=== PATIENT | male | born 1960 | race Caucasian/White ===

== ENCOUNTER 2020-01-09 20:27 | Inpatient (IN) ==
[2020-01-09] MEDS ORDERED: SODIUM CHLORIDE 0.9% 500 ML IV ONE (21:35)
[2020-01-09] MEDS ORDERED: ALBUTEROL HFA 8 GM INHALER INH ONE (21:35)
[2020-01-09 22:07] LABS: Hemoglobin 12.8 g/dL (14.0-18.0); Mean Corpuscular Hemoglobin 31.1 pg (25-34); Mean Corpuscular Hgb Conc 34.6 g/dL (32-36); Mean Platelet Volume 8.9 fL (7.4-10.4); Platelet Count 490 K/uL (130-400); RDW Standard Deviation 46.2 fL (36.4-46.3); Red Blood Count 4.11 M/uL (4.7-6.1); White Blood Count 16.58 K/uL (4.8-10.8)
[2020-01-09 22:18] LABS: INR 1.2 (0.9-1.1); Partial Thromboplastin Ratio 1.1; Partial Thromboplastin Time 29.7 Seconds (21.0-31.0); Prothrombin Time 12.6 Seconds (9.0-12.0)
[2020-01-09 22:26] LABS: Alanine Aminotransferase 17 U/L (12-78); Aspartate Aminotransferase 11 U/L (15-37); BUN Creatinine Ratio 21.1 (10-20); Blood Urea Nitrogen 15 mg/dl (7-18); Calcium 9.3 mg/dl (8.5-10.1); Carbon Dioxide 28 mmol/L (21-32); Chloride 95 mmol/L (98-107); Creatinine Clr Calc Pharmacy 119.5 ml/min; Est GFR (African American) 118.9; Est GFR (Non-African American) 102.6; Glucose 109 mg/dl (70-99); Magnesium 2.4 mg/dl (1.8-2.4); Potassium 4.8 mmol/L (3.5-5.1); Sodium 130 mmol/L (136-145)
[2020-01-09 22:31] LABS: Albumin Globulin Ratio 0.4 (0.9-2); Alkaline Phosphatase 119 U/L (45-117); Bilirubin,Total 0.4 mg/dl (0.2-1); Globulin 5.4 gm/dl (2.5-4.0); Total Protein 7.4 gm/dl (6.4-8.2); Troponin I < 0.015 ng/ml (0-0.045)
[2020-01-09 22:32] LABS: Basophils # (auto) 0.04 K/uL (0-0.2); Basophils % (auto) 0.2 %; Eosinophils # (auto) 0.02 K/uL (0-0.5); Eosinophils % (auto) 0.1 %; Immature Granulocytes % (auto) 2.4 %; Lymphocytes # (auto) 1.94 K/uL (1.2-3.4); Lymphocytes % (auto) 11.7 %; Monocytes # (auto) 1.27 K/uL (0.11-0.59); Monocytes % (auto) 7.7 %; Neutrophils # (auto) 12.91 K/uL (1.4-6.5); Neutrophils % (auto) 77.9 %
[2020-01-09 22:43] LABS: Appearance Urine Clear (Clear); Bilirubin Urine Negative (Negative); Blood Urine Negative (Negative); Color Urine Yellow; Glucose Urine UA Negative (Negative); Ketones Urine Negative (Negative); Leukocyte Esterase Urine Negative (Negative); Nitrite Urine Negative (Negative); Protein Urine Negative (Negative); Specific Gravity Urine 1.009 (1.000-1.030); Urobilinogen Urine Negative (Negative)
[2020-01-09] MEDS ORDERED: OPTIRAY 320 125ml IV PRN (23:03)
[2020-01-09] MEDS ORDERED: PIPERACILL/TAZOBAC CONSULT ACTIVE PRN (23:27)
[2020-01-09] MEDS ORDERED: PIPERACILLIN/TAZOBACTAM 4.5 GM/120 ML BAG IV ONE (23:27)
[2020-01-10] MEDS ORDERED: methylPREDNISolone 40 MG in SYRINGE 0 ML IV STA (00:08)
[2020-01-10] MEDS ORDERED: XOPENEX/ATROVENT 1.25mg/0.5MG NEB COMBO NEB STA (00:09)
[2020-01-10] MEDS ORDERED: IPRATROPIUM BROMIDE NEB SOLN 0.02% 2.5 ML VIAL INH STA (00:11)
[2020-01-10] MEDS ORDERED: LEVALBUTEROL 1.25MG/0.5ML NEB INH STA (00:12)
--- NOTE | 2020-01-10 00:15 | Emergency Department Note ---
History of Present Illness General Chief complaint: Chest Pain Stated complaint: CHEST & RIB PAIN History of Present Illness Maximum Pain Intensity: 5 This 59-year-old presents to the ER complaining of cough, congestion, chest pain and dyspnea with feeling sick for the past few days Location: Chest Quality: Hard to breathe Severity: Moderate Duration: Past few days Timing: Started 4 days ago Context: Symptoms got worse and patient came in Modifying factors: better with nothing; worse with activity Patient smokes 2 packs a day. He states he has no active medical problems but does not routinely see a doctor. He moved up here from [place] last year. Patient states he took Tylenol earlier tonight. Patient denies abdominal pain, vomiting, diarrhea, rash. Patient states he feels sick. He denies exposure to the coronavirus. No one in the household is sick. Home Medications Home Medications Medication Instructions Recorded Confirmed Type No Known Home Medications 01/09/20 01/09/20 History Allergies Allergy/AdvReac Type Severity Reaction Status Date / Time phenobarbital Allergy Unknown Verified 01/09/20 23:45 Past Med/Surg History Medical History No acute medical problems Surgical History No pertinent past surgical history Social History Feels Safe at Home: Yes Smoking Status: Current every day smoker Review of Systems A total of 10 systems reviewed and were otherwise negative Physical Exam Vital Signs Vital Signs - 24 hr 01/09/20 20:32 01/09/20 20:34 01/09/20 22:30 Temperature 37.5 C Temperature Source Oral Pulse Rate 120 H 107 H Pulse Rate from SpO2 Sensor 108 H Respiratory Rate 30 H 36 H Blood Pressure 143/81 H 131/81 Blood Pressure Mean 101 92 Blood Pressure Position Sitting Pulse Oximetry 94 87 L 94 Oxygen Delivery Method Nasal Cannula Room Air Oxygen Flow Rate 4 Sepsis Recent Fever Within 48 Hours No Sepsis New/Unexplained Change in Mental Status No Sepsis Action Taken by Nursing No Action Required Oxygen Flow Rate - Titration 4 Pulse Oximetry Post Tiitration 96 01/09/20 22:31 01/09/20 23:08 Temperature Temperature Source Pulse Rate 103 H 116 H Pulse Rate from SpO2 Sensor 104 H 116 H Respiratory Rate 26 H 36 H Blood Pressure 132/87 143/77 H Blood Pressure Mean 96 97 Blood Pressure Position Pulse Oximetry 95 92 Oxygen Delivery Method Oxygen Flow Rate Sepsis Recent Fever Within 48 Hours Sepsis New/Unexplained Change in Mental Status Sepsis Action Taken by Nursing Oxygen Flow Rate - Titration Pulse Oximetry Post Tiitration VITALS: Vitals are noted on the nurse's note and reviewed by myself. Vital signs hypoxic of 85% on room air and patient was placed on nasal cannula. GENERAL: White male working to breathe who appears ill. SKIN: The skin was without rashes, erythema, edema, or bruising. There is no tenting of the skin. Capillary reflex less than 2 seconds. HEAD: Normocephalic atraumatic. EARS: External auditory canals clear, tympanic membranes pearly arnold without erythema or effusion bilaterally. EYES: Pupils equal round and reactive to light and accommodation. Conjunctivae without injection, sclerae without icterus. Extraocular movements intact. NOSE: Patent, turbinates without inflammation or discharge. No sinus tender ness. MOUTH: Mucous membranes mildly dry pharynx without erythema or exudate. Uvula midline. Airway patent. Tongue does not deviate. NECK: Supple without nuchal rigidity. No lymphadenopathy. No thyromegaly. Cervical spine is nontender. No JVD. HEART: Tachycardic rate and rhythm LUNGS: Mild diffuse inspiratory and end expiratory wheezes. No retractions or accessory muscle use. ABDOMEN: Positive bowel sounds x 4. Normal tympanic percussion. Soft, nontender, without masses or organomegaly. Hernandez sign negative. No guarding or rebound tenderness. No CVA tenderness MUSCULOSKELETAL: No muscle atrophy, erythema, or edema noted. NEURO: Patient was alert and oriented to person place and time. Normal sensation to light and sharp touch. No focal neurological deficits. Course Administered Medications Ioversol (Optiray 320 125ml) 125 ml IV ONCE PRN PRN Reason: Interaction Checking Stop: 01/13/20 23:02 Last Admin: 01/09/20 23:04 Dose: 115 ml Documented by: [id number] Discontinued Medications Albuterol (Ventolin Hfa) 2 puffs INH NOW ONE Stop: 01/09/20 21:36 Last Admin: 01/09/20 22:31 Dose: 2 puffs Documented by: [id number] Sodium Chloride (Nss) 500 mls @ 999 mls/hr IV .Q31M ONE Stop: 01/09/20 22:05 Last Infusion: 01/09/20 23:10 Dose: 0 mls/hr Documented by: [id number] Admin: 01/09/20 21:53 Dose: 999 mls/hr Documented by: [id number] Medical Decision Making Medical Records Attestation: I reviewed the patient's medical records. Home Medications Current Medication List: was personally reviewed by me Laboratory Data Attestation: I reviewed the patient's lab results. Result diagrams: 01/09/20 21:54 01/09/20 21:54 Lab Results 01/09/20 01/09/20 01/09/20 Range/Units 21:50 21:54 21:54 WBC 16.58 H (4.8-10.8) K/uL RBC 4.11 L (4.7-6.1) M/uL Hgb 12.8 L (14.0-18.0) g/dL Hct 37.0 L (42-52) % MCV 90.0 (80-100) fL MCH 31.1 (25-34) pg MCHC 34.6 (32-36) g/dL RDW Std Deviation 46.2 (36.4-46.3) fL RDW Coeff of [place] 14.0 (11.5-14.5) % Plt Count 490 H (130-400) K/uL MPV 8.9 (7.4-10.4) fL Immature Gran % (Auto) 2.4 % Neut % (Auto) 77.9 % Lymph % (Auto) 11.7 % [place] % (Auto) 7.7 % Eos % (Auto) 0.1 % Baso % (Auto) 0.2 % Neut # (Auto) 12.91 H (1.4-6.5) K/uL Lymph # (Auto) 1.94 (1.2-3.4) K/uL [place] # (Auto) 1.27 H (0.11-0.59) K/uL Eos # (Auto) 0.02 (0-0.5) K/uL Baso # (Auto) 0.04 (0-0.2) K/uL Immature Gran # (Auto) 0.40 H (0.00-0.02) K/uL PT 12.6 H (9.0-12.0) Seconds INR 1.2 H (0.9-1.1) APTT 29.7 (21.0-31.0) Seconds PTT Ratio 1.1 Sodium (136-145) mmol/L Potassium (3.5-5.1) mmol/L Chloride (98-107) mmol/L Carbon Dioxide (21-32) mmol/L Anion Gap (3-11) BUN (7-18) mg/dl Creatinine (0.6-1.4) mg/dl Est Cr Clr Drug Dosing ml/min Est GFR ( Amer) Est GFR (Non-Af Amer) BUN/Creatinine Ratio (10-20) Glucose (70-99) mg/dl POC Lactic Acid Venkatesh (0.90-1.70) mmol/L Calcium (8.5-10.1) mg/dl Magnesium (1.8-2.4) mg/dl Total Bilirubin (0.2-1) mg/dl AST (15-37) U/L ALT (12-78) U/L Alkaline Phosphatase (45-117) U/L Troponin I (0-0.045) ng/ml Total Protein (6.4-8.2) gm/dl Albumin (3.4-5.0) gm/dl Globulin (2.5-4.0) gm/dl Albumin/Globulin Ratio (0.9-2) Urine Color Urine Appearance (Clear) Urine pH (4.5-7.5) Ur Specific [place] (1.000-1.030) Urine Protein (Negative) Urine Glucose (UA) (Negative) Urine Ketones (Negative) Urine Blood (Negative) Urine Nitrite (Negative) Urine Bilirubin (Negative) Urine Urobilinogen (Negative) Ur Leukocyte Esterase (Negative) COVID-19 PCR NEGATIVE (Negative) 01/09/20 01/09/20 01/09/20 Range/Units 21:54 22:04 22:34 WBC (4.8-10.8) K/uL RBC (4.7-6.1) M/uL Hgb (14.0-18.0) g/dL Hct (42-52) % MCV (80-100) fL MCH (25-34) pg MCHC (32-36) g/dL RDW Std Deviation (36.4-46.3) fL RDW Coeff of [place] (11.5-14.5) % Plt Count (130-400) K/uL MPV (7.4-10.4) fL Immature Gran % (Auto) % Neut % (Auto) % Lymph % (Auto) % [place] % (Auto) % Eos % (Auto) % Baso % (Auto) % Neut # (Auto) (1.4-6.5) K/uL Lymph # (Auto) (1.2-3.4) K/uL [place] # (Auto) (0.11-0.59) K/uL Eos # (Auto) (0-0.5) K/uL Baso # (Auto) (0-0.2) K/uL Immature Gran # (Auto) (0.00-0.02) K/uL PT (9.0-12.0) Seconds INR (0.9-1.1) APTT (21.0-31.0) Seconds PTT Ratio Sodium 130 L (136-145) mmol/L Potassium 4.8 (3.5-5.1) mmol/L Chloride 95 L (98-107) mmol/L Carbon Dioxide 28 (21-32) mmol/L Anion Gap 7.0 (3-11) BUN 15 (7-18) mg/dl Creatinine 0.70 (0.6-1.4) mg/dl Est Cr Clr Drug Dosing 119.5 ml/min Est GFR ( Amer) 118.9 Est GFR (Non-Af Amer) 102.6 BUN/Creatinine Ratio 21.1 H (10-20) Glucose 109 H (70-99) mg/dl POC Lactic Acid Venkatesh 0.95 (0.90-1.70) mmol/L Calcium 9.3 (8.5-10.1) mg/dl Magnesium 2.4 (1.8-2.4) mg/dl Total Bilirubin 0.4 (0.2-1) mg/dl AST 11 L (15-37) U/L ALT 17 (12-78) U/L Alkaline Phosphatase 119 H (45-117) U/L Troponin I < 0.015 (0-0.045) ng/ml Total Protein 7.4 (6.4-8.2) gm/dl Albumin 2.0 L (3.4-5.0) gm/dl Globulin 5.4 H (2.5-4.0) gm/dl Albumin/Globulin Ratio 0.4 L (0.9-2) Urine Color Yellow Urine Appearance Clear (Clear) Urine pH 6.0 (4.5-7.5) Ur Specific [place] 1.009 (1.000-1.030) Urine Protein Negative (Negative) Urine Glucose (UA) Negative (Negative) Urine Ketones Negative (Negative) Urine Blood Negative (Negative) Urine Nitrite Negative (Negative) Urine Bilirubin Negative (Negative) Urine Urobilinogen Negative (Negative) Ur Leukocyte Esterase Negative (Negative) COVID-19 PCR (Negative) Imaging Data Attestation: I personally reviewed and interpreted this imaging study as follows: Blood Pressure Blood Pressure Findings: Elevated blood pressure Blood Pressure Disposition: Referred to patients primary care provider [facility] Narrative Prior records/ancillary studies reviewed. Triage Nursing notes reviewed. The patient's history was concerning for respiratory difficulties. Differential diagnosis: Etiologies such as infections, reactive airway disease, pneumonia, pneumothorax, COPD, CHF, cardiac ischemia, pulmonary embolism, musculoskeletal, gastrointestinal, as well as others were entertained. Physical examination: As above. ER treatment provided: An order was placed for continuous cardiac monitoring. The monitor shows a rate of 60-1 30 with a normal sinus rhythm. IV fluids, albuterol, Zosyn On reassessment the patient felt better. Diagnostic interpretation by me: The electrocardiogram was ordered for chest pain EKG: Poor baseline, normal sinus, normal intervals, no acute ST-T changes, rate of 117. Impression sinus tachycardia interpreted by myself I think arrhythmia is unlikely. EKG shows normal sinus rhythm with no interval abnormalities such as QT prolongation or WPW. There are no findings to suggest Brugada syndrome. Cardiac monitoring in the emergency department reveals no tachycardic or bradycardic dysrhythmia. Hypertrophic cardiomyopathy was considered but there are no clear historical elements pointing toward this. EKG is not suggestive. The QRS voltage is not extremely large and there are no suggestive Q waves. The labs revealed leukocytosis, negative lactic acid, negative COVID test Blood cultures pending Imaging studies: Chest x-ray concerning for left-sided pleural effusion and possible pneumonia per my interpretation. CTA CHEST: No pulmonary embolism or acute aortic syndrome. Large loculated pleural effusion at the left lung base with mild pleural thickening suggestive of empyema. Moderate emphysema. Groundglass opacities within the left upper and lower lobes with septal thickening. Infection/Covid could have this appearance. Near complete collapse of the left lower lobe secondary to the large effusion. Radiologist: Ramez Sahu MD Consultation: A consultation was placed with Dr. Andrew hospitalist. The case was discussed and diagnostics were reviewed. The patient was evaluated in the ER for further treatment. This appears to be consistent with sepsis with pneumonia with large pleural effusion concerning for empyema. Patient started on IV antibiotics. Blood cultures are pending. Negative COVID. Negative lactic acid. Patient was p laced on oxygen and O2 came up. He is agreeable treatment plan of admission. Medicine was consulted. By the evaluation outlined above emergent etiologies such as CHF, cardiac ischemia, pulmonary embolism, reactive airway disease, pneumothorax, musculoskeletal, as well as others were deemed relatively unlikely. The pt informed about the findings as listed above. All questions were answered and pleased with the treatment. The chart was completed utilizing [employer] Speech voice recognition software. Grammatical errors, random word insertions, pronoun errors, and incomplete sentences are an occassional consequence of this system due to software limitations, ambient noise, and hardware issues. Any formal questions or concerns about the content, text, or information contained within the body of this dictation should be directly addressed to the physician assistant attorney general for clarification. Impression & Plan Sepsis, Pneumonia Discharge Plan Visit Data Chief Complaint: Chest Pain Stated Complaint: CHEST & RIB PAIN ED Provider: Kayy Dukes ED Midlevel Provider: Nany Kolb Discharge Problem: Sepsis, Pneumonia Patient Disposition: Admitted As Inpatient Condition: Fair Forms Stand Alone Forms: Tapingo Prescriptions Prescriptions: No Action No Known Home Medications RF: 0 Referrals Referrals: PCP,NO [Primary Care Provider] -
[2020-01-10 00:49] LABS: Thyroid Stimulating Hormone 0.665 uIu/ml (0.300-4.500)
[2020-01-10] MEDS ORDERED: NICOTINE 21 MG/24 HR TDSY TD STA (01:13)
[2020-01-10] MEDS ORDERED: PANTOprazole 80 MG in DEXTROSE 5% 100 ML IV ONE (01:43)
[2020-01-10] MEDS ORDERED: PANTOPRAZOLE BOLUS/DRIP 1 EA IV STA (01:43)
--- NOTE | 2020-01-10 01:44 | History & Physical Report ---
Date of Service January 10, 2020 Assessment & Plan (1) Acute hypoxemic respiratory failure: Secondary to COPD exacerbation secondary to complicated pneumonia Severe sepsis secondary to above U GIB, possible NSAID gastritis Anemia secondary to above ? Acute on chronic Situational hypertension Currently not on maintenance meds Possible alcohol withdrawal ongoing tobacco abuse Medical telemetry Supplemental O2 Baseline ABG Steroids, nebs RTC for symptom exacerbation Cultures, Zosyn Pulmonary consult RE complicated pneumonia IV PPI for UGI B Anemia work-up, trend H&H, transfuse PRBC if hemoglobin less than 7 and or for symptomatic anemia Patient counseled about NSAID intake and potential to GI bleed. Monitor BP, clonidine as needed for elevated BP DT precautions DVT prophylaxis. SCDs RE GI bleed Full code Total critical time was 45 minutes. Text document was generated using [employer] voice recognition software. It may contain grammatical or spelling errors. Kindly contact undersigned for clarification of any documentation item in question. History of Present Illness Tonsillectomy, circumcision Chief Complaint: Left-sided chest pain, shortness of breath Primary Care Provider: [place], [place], [place] History obtained from patient and records. Medical history significant for COPD, hypertension (currently not on meds), daily alcohol intake, ongoing tobacco abuse. Patient is a resident of [facility] who has been in [place] residing with his parents since last year to attend to some family concerns. About 4 days ago, a branch hit patient's left chest/flank while he was cutting bushes at his parents' home. Achy pleuritic pain with worsening junky cough and shortness of breath symptoms. No aspiration as per patient. No known sick contacts/COVID-19 exposure. No fever, no chills. Intake of at least 5 tablets of OTC NSAID daily since injury. Stools noted to be dark along with achy abdominal pain. No emesis. EMS called for worsening symptoms last night. Patient noted to be hypoxemic, O2 sats 80s. Patient brought to the ER. Given IV Zosyn for sepsis. 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 Allergies Allergy/AdvReac Type Severity Reaction Status Date / Time phenobarbital Allergy Unknown Verified 01/09/20 23:45 Home Medications Home Medications Medication Instructions Recorded Confirmed Type No Known Home Medications 01/09/20 01/09/20 History Past Med/Surg History Medical History No acute medical problems Surgical History No pertinent past surgical history Social History Preferred Language: Frisian Communication Ability: Effective Project Program Manager Required: No Beliefs That Will Affect Care: None Current Living Situation: Alone Other Information That Helps Us Care for You: No Feels Safe at Home: Yes Safety Concerns: Feels Safe At This Time Smoking Status: Current every day smoker Tobacco Type: cigarettes ; Cigarettes Per Day: 1-2 PPD ; Hx Alcohol Use: Yes Alcohol type: beer Hx Substance Use: Yes substance use type: marijuana Last Used Substance: Unknown Last Used Substance Other:: years ago Review of Systems Review of Systems: As per HPI, all 10 systems reviewed, all other ROS negative Physical Exam Physical Exam: GENERAL: uncomfortable, minimal respiratory distress SKIN: Pallor color, warm HEENT: Pale palpebral conjunctivae, no ptosis, dry buccal mucosa, nasal cannula in place NECK : Supple, no tenderness CHEST : Decreased breath sounds, diffuse expiratory wheezes , no tenderness HEART : Tachycardic, no obvious murmurs ABDOMEN: Some distention, nontender RECTAL : Intact sphincter, fleshy anal skin tag, dark stool (FOBT positive ) EXTREMITIES : No LE swelling/tenderness, no other conspicuous deformities noted NEUROLOGIC : Coherent, no facial asymmetry, no other gross focality Results & Data Results & Data ([facility]) Vital Signs (Past 12 Hours) Vital Signs Temp Pulse Pulse Resp BP BP Pulse Ox 01/10/20 01:00 102 H 24 132/83 92 01/10/20 00:26 71 22 86 L 01/09/20 23:08 116 H 36 H 143/77 H 92 01/09/20 22:31 103 H 26 H 132/87 95 01/09/20 22:30 107 H 36 H 131/81 94 01/09/20 20:34 87 L 01/09/20 20:32 37.5 C 120 H 30 H 143/81 H 94 Laboratory Results Laboratory Results WBC 16.58 K/uL (4.8-10.8) H 01/09/20 21:54 RBC 4.11 M/uL (4.7-6.1) L 01/09/20 21:54 Hgb 12.8 g/dL (14.0-18.0) L 01/09/20 21:54 Hct 37.0 % (42-52) L 01/09/20 21:54 MCV 90.0 fL (80-100) 01/09/20 21:54 MCH 31.1 pg (25-34) 01/09/20 21:54 MCHC 34.6 g/dL (32-36) 01/09/20 21:54 RDW Std Deviation 46.2 fL (36.4-46.3) 01/09/20 21:54 RDW Coeff of [place] 14.0 % (11.5-14.5) 01/09/20 21:54 Plt Count 490 K/uL (130-400) H 01/09/20 21:54 MPV 8.9 fL (7.4-10.4) 01/09/20 21:54 Immature Gran % (Auto) 2.4 % 01/09/20 21:54 Neut % (Auto) 77.9 % 01/09/20 21:54 Lymph % (Auto) 11.7 % 01/09/20 21:54 [place] % (Auto) 7.7 % 01/09/20 21:54 Eos % (Auto) 0.1 % 01/09/20 21:54 Baso % (Auto) 0.2 % 01/09/20 21:54 Neut # (Auto) 12.91 K/uL (1.4-6.5) H 01/09/20 21:54 Lymph # (Auto) 1.94 K/uL (1.2-3.4) 01/09/20 21:54 [place] # (Auto) 1.27 K/uL (0.11-0.59) H 01/09/20 21:54 Eos # (Auto) 0.02 K/uL (0-0.5) 01/09/20 21:54 Baso # (Auto) 0.04 K/uL (0-0.2) 01/09/20 21:54 Immature Gran # (Auto) 0.40 K/uL (0.00-0.02) H 01/09/20 21:54 PT 12.6 Seconds (9.0-12.0) H 01/09/20 21:54 INR 1.2 (0.9-1.1) H 01/09/20 21:54 APTT 29.7 Seconds (21.0-31.0) 01/09/20 21:54 PTT Ratio 1.1 01/09/20 21:54 Sodium 130 mmol/L (136-145) L 01/09/20 21:54 Potassium 4.8 mmol/L (3.5-5.1) 01/09/20 21:54 Chloride 95 mmol/L (98-107) L 01/09/20 21:54 Carbon Dioxide 28 mmol/L (21-32) 01/09/20 21:54 Anion Gap 7.0 (3-11) 01/09/20 21:54 BUN 15 mg/dl (7-18) 01/09/20 21:54 Creatinine 0.70 mg/dl (0.6-1.4) 01/09/20 21:54 Est Cr Clr Drug Dosing 119.5 ml/min 01/09/20 21:54 Est GFR ( Amer) 118.9 01/09/20 21:54 Est GFR (Non-Af Amer) 102.6 01/09/20 21:54 BUN/Creatinine Ratio 21.1 (10-20) H 01/09/20 21:54 Glucose 109 mg/dl (70-99) H 01/09/20 21:54 Osmolality 277 mOsm/kg (280-300) L 01/09/20 21:50 POC Lactic Acid Venkatesh 0.95 mmol/L (0.90-1.70) 01/09/20 22:04 Lactate 1.1 mmol/L (0.4-2.0) 01/10/20 00:25 Calcium 9.3 mg/dl (8.5-10.1) 01/09/20 21:54 Magnesium 2.4 mg/dl (1.8-2.4) 01/09/20 21:54 Total Bilirubin 0.4 mg/dl (0.2-1) 01/09/20 21:54 AST 11 U/L (15-37) L 01/09/20 21:54 ALT 17 U/L (12-78) 01/09/20 21:54 Alkaline Phosphatase 119 U/L (45-117) H 01/09/20 21:54 Troponin I < 0.015 ng/ml (0-0.045) 01/09/20 21:54 Total Protein 7.4 gm/dl (6.4-8.2) 01/09/20 21:54 Albumin 2.0 gm/dl (3.4-5.0) L 01/09/20 21:54 Globulin 5.4 gm/dl (2.5-4.0) H 01/09/20 21:54 Albumin/Globulin Ratio 0.4 (0.9-2) L 01/09/20 21:54 TSH 0.665 uIu/ml (0.300-4.500) 01/09/20 21:54 Urine Color Yellow 01/09/20 22:34 Urine Appearance Clear (Clear) 01/09/20 22:34 Urine pH 6.0 (4.5-7.5) 01/09/20 22:34 Ur Specific [place] 1.009 (1.000-1.030) 01/09/20 22:34 Urine Protein Negative (Negative) 01/09/20 22:34 Urine Glucose (UA) Negative (Negative) 01/09/20 22:34 Urine Ketones Negative (Negative) 01/09/20 22:34 Urine Blood Negative (Negative) 01/09/20 22:34 Urine Nitrite Negative (Negative) 01/09/20 22:34 Urine Bilirubin Negative (Negative) 01/09/20 22:34 Urine Urobilinogen Negative (Negative) 01/09/20 22:34 Ur Leukocyte Esterase Negative (Negative) 01/09/20 22:34 COVID-19 PCR NEGATIVE (Negative) 01/09/20 21:[address] chest initial read: No pleural embolism or acute aortic syndrome. Large loculated pleural effusion at the left lung base with mild pleural thickening suggestive of empyema. Moderate emphysema. Groundglass opacities within the left upper and lower lobes and septal thickening. Infection/COVID-19 could have this appearance. Near complete collapse of left lower lobe secondary to large effusion. CT abdomen pelvis initial read: Colonic diverticulosis without diverticulitis. Normal appendix. Prior pancreatitis. Left adrenal adenoma. Large empyema left lung base. EKG as per my interpretation : Rate 115, sinus tachycardia, normal axis, no ischemia
[2020-01-10] MEDS ORDERED: THIAMINE HCL 100 MG in SYRINGE 9 ML IV STA (01:46)
[2020-01-10] MEDS: PANTOprazole 40 MG in DEXTROSE 5% 100 ML IV SCH ×2 (02:19→07:26)
[2020-01-10] MEDS ORDERED: cloNIDine HCL 0.1 MG TAB PO STA (02:22)
[2020-01-10 02:25] LABS: Hematocrit (blood only) 34.3 % (42-52); Hemoglobin 11.9 g/dL (14.0-18.0); Mean Corpuscular Hemoglobin 31.5 pg (25-34); Mean Corpuscular Hgb Conc 34.7 g/dL (32-36); Mean Corpuscular Volume 90.7 fL (80-100); Mean Platelet Volume 8.8 fL (7.4-10.4); Platelet Count 433 K/uL (130-400); RDW Coefficient of Variation 14.1 % (11.5-14.5); RDW Standard Deviation 46.5 fL (36.4-46.3); Red Blood Count 3.78 M/uL (4.7-6.1); Reticulocyte % 1.2 % (0.5-2.0); Reticulocytes # 0.05 10^6/uL (0.02-0.10); White Blood Count 16.13 K/uL (4.8-10.8)
[2020-01-10 02:26] LABS: Base Excess VBG 3.9 mEq/L; HCO3 VBG 31 mmol/L; Oxygen Saturation VBG < 60.0 %; PCO2 VBG 58 mmHg (38-50); PO2 VBG 21 mmHg; pH VBG 7.35 (7.36-7.41)
[2020-01-10 02:43] LABS: BUN Creatinine Ratio 22.9 (10-20); Creatinine Clr Calc Pharmacy 117.8 ml/min; Est GFR (African American) 118.2; Potassium 5.2 mmol/L (3.5-5.1)
[2020-01-10 02:46] LABS: Basophils # (auto) 0.02 K/uL (0-0.2); Basophils % (auto) 0.1 %; Dohle Bodies 1+; Eosinophils # (auto) 0.04 K/uL (0-0.5); Eosinophils % (auto) 0.2 %; Immature Granulocytes # (auto) 0.29 K/uL (0.00-0.02); Immature Granulocytes % (auto) 1.8 %; Lymphocytes # (auto) 2.22 K/uL (1.2-3.4); Lymphocytes % (auto) 13.8 %; Monocytes # (auto) 1.52 K/uL (0.11-0.59); Monocytes % (auto) 9.4 %; Neutrophils # (auto) 12.04 K/uL (1.4-6.5); Neutrophils % (auto) 74.7 %; Toxic Granulation 2+
[2020-01-10 02:48] LABS: Ferritin 454.2 ng/ml (8-388)
[2020-01-10 03:32] LABS: Folate (Folic Acid) 8.96 ng/ml (>5.38)
[2020-01-10] MEDS ORDERED: DEXTROSE 50% 50 ML SYRINGE IV ONE (03:32)
[2020-01-10] MEDS ORDERED: INSULIN HUMAN REGULAR PER UNIT 10 UNITS in SYRINGE 9.9 ML IV STA (03:32)
[2020-01-10] MEDS ORDERED: LORazepam 2 MG/4 ML VIAL IV PRN (04:18)
[2020-01-10] MEDS ORDERED: LORazepam 3 MG/6 ML VIAL IV PRN (04:18)
[2020-01-10] MEDS ORDERED: ATIVAN IV ALCOHOL WITHDRAWL IV PRN (04:18)
[2020-01-10] MEDS ORDERED: LORazepam 1 MG/2 ML VIAL IV PRN (04:18)
[2020-01-10] MEDS ORDERED: ACETAMINOPHEN 325 MG TAB PO PRN (04:18)
[2020-01-10] MEDS ORDERED: GABAPENTIN 600 MG TAB PO SCH (04:18)
[2020-01-10] MEDS: SODIUM CHLORIDE 0.9% 1000ML 1,000 ML IV SCH ×2 (04:18→20:40)
[2020-01-10] MEDS ORDERED: PROMETHAZINE HCL 12.5 MG in SODIUM CHLORIDE 0.9% 50 ML IV PRN (04:18)
[2020-01-10] MEDS ORDERED: GABAPENTIN 1200MG ALCOHOL WITHDRAWAL LOAD PO STA (04:18)
[2020-01-10] MEDS: PIPERACILLIN/TAZOBACTAM 3.375 GM in DEXTROSE 5% 100 ML IV SCH ×3 (05:13→22:13)
--- NOTE | 2020-01-10 06:41 | XRay Report ---
XR ribs LT min 3V w CXR1V CLINICAL HISTORY: Pain s/p Trauma, C04 trauma. Pain. COMPARISON STUDY: No previous studies for comparison. FINDINGS: Fracture posterior aspect left sixth rib. No additional rib fractures. Left basilar consolidation and/or atelectasis. IMPRESSION: 1. Fracture posterior left sixth rib. 2. Left basilar atelectasis and/or consolidation. 3. No evidence for pneumothorax. ACT 112: Negative or not required by law. The above report was generated using voice recognition software. It may contain grammatical, syntax or spelling errors. Electronically signed by: Roland Steele M.D. 01/10/2020 6:40 AM
[2020-01-10] MEDS ORDERED: XOPENEX/ATROVENT 1.25mg/0.5MG NEB COMBO NEB SCH (07:00)
[2020-01-10] MEDS: IPRATROPIUM BROMIDE NEB SOLN 0.02% 2.5 ML VIAL INH SCH ×3 (07:14→19:41)
[2020-01-10] MEDS: LEVALBUTEROL 1.25MG/0.5ML NEB INH SCH ×3 (07:14→19:41)
--- NOTE | 2020-01-10 07:16 | CT Scan Report ---
CT angio chest PE protocol CT DOSE: 580.00 mGycm HISTORY: Chest pain. Dyspnea. PE TECHNIQUE: Multiaxial CT images of the chest were performed following the intravenous administration of contrast to evaluate the pulmonary arteries. Maximal intensity projection images were also obtaine d. A dose lowering technique was utilized adhering to the principles of ALARA. COMPARISON STUDY: None. FINDINGS: Large left pleural effusion. There is a loculated. Compressive atelectasis of the left lowe r lobe. Interstitial infiltrative changes throughout the left mid to lower lung. Right lung shows minimal int erstitial change. Baseline underlying emphysematous change is present. Pulmonary vasculature enhances appropriately. No significant filling defects. Mild atherosclerotic ch anges thoracic aorta with no evidence for aneurysm or dissection. IMPRESSION: 1. No evidence for pulmonary embolus. 2. Large loculated left pleural effusion with additional small loculated components in the left peric ardial lingular position. 3. Diffuse interstitial infiltrative change of the left mid to lower lung. 4. Underlying baseline emphysematous change. ACT 112: Negative or not required by law. The above report was generated using voice recognition software. It may contain grammatical, syntax or spelling errors. Electronically signed by: Roland Steele M.D. 01/10/2020 7:14 AM
--- NOTE | 2020-01-10 08:29 | CT Scan Report ---
CT SCAN OF THE ABDOMEN AND PELVIS WITHOUT CONTRAST CLINICAL HISTORY: Generalized abdominal pain COMPARISON STUDY: No previous studies for comparison. TECHNIQUE: CT scan of the abdomen and pelvis was performed from the lung bases to the proximal femurs . Images are reviewed in the axial, sagittal, and coronal planes. IV contrast was not administered fo r this examination. A dose lowering technique was utilized adhering to the principles of ALARA. CT DOSE: 447.88 mGy.cm FINDINGS: Lower chest: There is a large left pleural effusion with left lower lobe compressive atelectatic bowman ges. There is mild associated pleural thickening. Liver: The unenhanced liver is normal in size, contour, and attenuation. There is no intrahepatic lynsey iary ductal dilatation. Gallbladder: Unremarkable. Spleen: Normal in size and attenuation. Pancreas: There are pancreatic calcifications suggestive of chronic pancreatitis. Adrenal glands: There is a 2 cm left adrenal nodule consistent with an adenoma Kidneys: There is bilateral renal contrast excretion secondary to a CT scan performed earlier in the day. There is no hydronephrosis. No solid renal masses are visualized. Bowel: There are no transition zones indicate bowel obstruction. There is colonic diverticulosis. The re is no evidence of acute diverticulitis. There is no evidence of acute appendicitis. Peritoneum: There is no intraperitoneal free air or abdominal ascites. Vasculature: The abdominal aorta is normal in course and caliber. Adenopathy: None. Pelvic viscera: There is contrast within the bladder secondary to a prior CT scan. Skeletal structures: No destructive osseous lesions are seen. IMPRESSION: 1. Motion degraded study 2. Large left pleural effusion with associated left basilar atelectatic change 3. No evidence of bowel obstruction. No evidence of free air 4. No evidence of acute diverticulitis. No evidence of acute appendicitis 5. 2 cm left adrenal adenoma ACT 112: Negative or not required by law. Electronically signed by: Mio Champagne M.D. 01/10/2020 8:28 AM
[2020-01-10 08:40] LABS: Hematocrit (blood only) 34.8 % (42-52); Hemoglobin 11.8 g/dL (14.0-18.0)
[2020-01-10] MEDS: FOLIC ACID 1 MG TAB PO SCH (08:40)
[2020-01-10] MEDS: MULTIVITAMIN TAB PO SCH (08:40)
[2020-01-10] MEDS: NICOTINE 21 MG/24 HR TDSY TD SCH (08:41)
[2020-01-10 09:31] LABS: Estimated Average Glucose 120 mg/dl; Hemoglobin A1C 5.8 % (4.5-5.6)
[2020-01-10] MEDS: GABAPENTIN 600 MG TAB PO SCH ×3 (10:02→23:41)
--- NOTE | 2020-01-10 11:59 | Gastrointestinal Consultation ---
Date of Consultation January 10, 2020 Assessment & Plan (1) Sepsis: (2) Acute hypoxemic respiratory failure: (3) Pleural effusion: Pt is a 59 y/o male admitted w respiratory failure, sepsis, L sided pleural effusion. He has L rib fracture after being hit by a branch 4 days ago, took high doses of Ibuprofen for the pain and by 2nd day noticed black sticky stools. Last BM yesterday black but w more form. He is mildly anemic but blood ct stable and no further signs of kimberly GI bleeding. In light of his pulmonary issues, and no active s/s of GI bleeding, we would defer endoscopic workup at this time and treat him for possible UGI bleed medically with PPI BID dosing. We will continue to monitor him, and please call us if pt develops hematemesis/coffee ground emesis/melena. Monitor H/H closely. Defer to Pulmonology (already consulted) for L pleural effusion management. Supervising Physician Co-Signing Physician Notes I saw and evaluated the patient, we were asked to evaluate a history of dark stool. Patient reports having no recurrent dark stool since admission and is presently under evaluation for a large left-sided pleural effusion. It appears that he just underwent a thoracentesis and chest tube placement. Physical examination patient in obvious pain with left-sided discomfort in the chest and shoulder region Impression: Patient with a history of dark stool but no obvious evidence of an overt gastrointestinal bleed at the present time. Given this we would hold on any interventions for the present time. I would suggest that the patient be treated with prophylactic Protonix 40 mg/day and his blood count be trended. Should any significant drop recur or he develop melena or hematemesis then an upper endoscopy could certainly be provided History of Present Illness Reason for Consultation: UGI bleed Requesting Physician: Dr. Gianni Krause Attending Physician: Dr. Mandy Croft History of Present Illness Pt is a 59 y/o male who presented yesterday w c/o L sided chest pain and SOB, productive cough. He was cutting bushes 4 day ago and was hit by a branch. On eval noted he appears hypoxic, and septic, IV Zosyn had been started Xray showed L 6th rib fracture and a large L sided pleural effusion. COVID 19 negative. GI consulted as pt reports he was taking about 7 Ibuprofen for L chest pain and by 2nd day he noticed stools were sticky and black. His last BM was yesterday - no sticky stools, it's a bit more formed but still black in color. He denies any hematemesis or coffee ground emesis. No BMs since admitted. H/H , BUN normal. We don't have baseline lab results - his PCP is in [place], [place]. He does smoke tobacco, denies regular ETOH uses (1 case a month) however did note he had a 6 pack a couple of days ago. 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 Beliefs That Will Affect Care: None Current Living Situation: Alone Other Information That Helps Us Care for You: No Feels Safe at Home: Yes Safety Concerns: Feels Safe At This Time Smoking Status: Current every day smoker Tobacco Type: cigarettes ; Cigarettes Per Day: 1-2 PPD ; Hx Alcohol Use: Yes Alcohol type: beer Hx Substance Use: Yes substance use type: marijuana Last Used Substance: Unknown Last Used Substance Other:: years ago Review of Systems Review of Systems: All systems reviewed & are unremarkable except as noted in HPI & below Physical Exam Constitutional: WD/WN, vitals as above well groomed, cooperative, comfortable and + diaphoretic Eyes: PERRL, conjunctivae normal, anicteric sclerae ENMT: external ear and nose normal, oropharynx normal Respiratory: no respiratory distress and does not use accessory muscles Auscultation: + diminished lung sounds (LLL) Cardiovascular: RRR, no murmur, no edema Gastrointestinal (Abdomen): normal bowel sounds, soft, nontender, no hepatosplenomegaly Skin: no rashes, warm and dry no jaundice Psychiatric: A+Ox3, euthymic affect Lymphatic: no lymphedema Results & Data ([facility]) Vital Signs (Past 12 Hours) Vital Signs Temp Pulse Pulse Resp BP BP BP 01/10/20 11:53 01/10/20 11:52 36.5 C 53 L 22 120/73 01/10/20 09:07 36.1 C L 01/10/20 07:22 83 01/10/20 07:17 83 18 01/10/20 07:16 36.4 C L 91 H 18 116/73 01/10/20 06:08 102 H 01/10/20 04:18 36.6 C 97 H 25 H 117/68 01/10/20 03:31 96 H 24 125/74 01/10/20 03:01 98 H 25 H 126/80 01/10/20 02:03 104 H 24 152/78 H 01/10/20 01:00 102 H 24 132/83 01/10/20 00:26 71 22 Pulse Ox 01/10/20 11:53 95 01/10/20 11:52 89 L 01/10/20 09:07 01/10/20 07:22 01/10/20 07:17 97 01/10/20 07:16 97 01/10/20 06:08 01/10/20 04:18 92 01/10/20 03:31 98 01/10/20 03:01 98 01/10/20 02:03 96 01/10/20 01:00 92 01/10/20 00:26 86 L (1) Sepsis Sepsis acute organ dysfunction status: unspecified Sepsis type: sepsis due to unspecified organism Qualified Code(s): A41.9 - Sepsis, unspecified organism
--- NOTE | 2020-01-10 13:21 | Electrocardiogram Report ---
Test Reason : Blood Pressure : / mmHG Vent. Rate : 117 BPM Atrial Rate : 117 BPM P-R Int : 174 ms QRS Dur : 100 ms QT Int : 318 ms P-R-T Axes : 060 055 066 degrees QTc Int : 443 ms Sinus tachycardia Otherwise normal ECG No previous ECGs available Confirmed by Manjit Torres ([id number]) on 01/10/2020 1:21:32 PM Referred By: REFERRED SELF Confirmed By:Manjit Torres
[2020-01-10 14:16] LABS: Hematocrit (blood only) 35.7 % (42-52); Hemoglobin 11.9 g/dL (14.0-18.0)
--- NOTE | 2020-01-10 15:08 | Communication Note ---
Date of Service: January 10, 2020 The patient was seen and examined in medical telemetry unit He complains to have some back pain and minimal shortness of breath at rest Remains hemodynamically stable Saturating normally with 2 L nasal cannula oxygen He has been seen by gastroenterology and also pulmonology services Will do full evaluation tomorrow Dr Adelso Krause
[2020-01-10] MEDS: MoRPHine SULFATE 4 MG/ML 1 ML CARP\\VIAL IV PRN (15:14)
--- NOTE | 2020-01-10 16:13 | Procedure Note ---
Procedure Note Date of Service January 10, 2020 Note PIGTAIL CATHETER PLACEMENT NOTE: Procedure: Pigtail Catheter Chest Tube Placement Indication: Large loculated left-sided effusion Anesthesia: 8 lidocaine 1%, 4 mg of morphine IV were given prior to the procedure. Written consent was obtained and on the chart per attending providers. Prior to procedure, chest x-ray films were reviewed by myself and demonstrated a large loculated left-sided effusion A time-out was completed verifying correct patient, procedure, site, positioning, and implant(s) or special equipment if applicable. Utilizing bedside ultrasound, chest wall was evaluated for location for optimal chest tube placement. Location between the fifth and sixth ribs were marked on the skin using gentle pressure. The left sided chest wall was prepped with chlorhexidine and draped in the typical sterile fashion. 8 mL of 1% Lidocaine without epinephrine was used to anesthetize the skin down to the dorsal surface of the 6 rib. Cloudy yellow fluid return confirmed entry into the pleural space. Lidocaine was injected into the pleural space for increased anesthetization. Introducer needle on syringe was inserted in perpendicular fashion taking care to ride just above the dorsal surface of the fifth rib. Entry into the pleural space was heralded by cloudy yellow fluid return into the syringe while under gentle aspiration. Guide wire was advanced into the pleural space without resistance and the introducer needle was subsequently removed. Scalpel was used to make small incision of the superficial tissue, parallel to the direction of the rib anatomy. Dilator was advanced uneventfully over the guide wire into the pleural space. 14 Greenlandic Pigtail Catheter was inserted into the pleural space. Inner introducer and guide wire were removed. Drain was immediately connected to pre-prepared ITZEL pleur-evac system. Pigtail was sutured securely in place and sterile dressing was applied. Chest tube was placed to -20 cmH2O suction. Patient tolerated procedure well. Blood Loss: Minimal Complications: None Post procedure Chest X-ray was ordered and reviewed by myself which demonstrated adequate placement. Ultrasound revealed a large septated, complicated appearing effusion. Fluid studies were sent for glucose, pH, culture, triglycerides, cell count, LDH, total protein and cytology. Coding CPT Codes Pulmonary/Thoracic - Pulmonary and Thoracic: 42783 US, Chest, real time with imaging documentation ([id number]) Pulmonary/Thoracic - Pulmonary and Thoracic: 97398 Tube thoracostomy ([id number]) [facility] [place]odes (Charges) Pulmonary/Thoracic Procedure 1: Pulmonary and Thoracic: 32628 US, Chest, real time with imaging documentation Procedure 2: Pulmonary and Thoracic: 55563 Tube thoracostomy
--- NOTE | 2020-01-10 16:15 | Pulmonary Consultation ---
Date of Consultation January 10, 2020 Assessment & Plan (1) Parapneumonic effusion: I placed a left-sided 14 Maltese pigtail catheter. Chest x-ray is pending. Fluid studies pending. This is almost certainly an exudative effusion given the appearance. Differential includes possible chylothorax versus empyema versus malignancy. He did have a recent trauma and I am checking pleural triglycerides and chylomicrons to evaluate for the possibility of a chylothorax. However, given the appearance on the ultrasound with the septations and the infectious symptoms, I suspect that this is likely an empyema. Pending fluid studies, I will likely start him on the Mist 2 protocol. Once this is ini tiated, we can obtain a CT of his chest without contrast on day 3. There is a possibility that he may need video-assisted thoracoscopy to clear off the rest of the effusion, but we will see how he does with the chest tube drainage and possible TPA/dornase. Continue IV Zosyn as you are doing. MRSA screen was negative. I am obtaining a urine drug screen and an echocardiogram in light of his IV drug abuse history. Blood cultures pending. Pulmonary will continue to follow along with you. Thank you for the interesting consult. (2) Acute hypoxemic respiratory failure: (3) Alcoholism: (4) Left rib fracture: (5) IV drug abuse: History of Present Illness Reason for Consultation: Complicated left-sided pleural effusion Requesting Physician: Dr. Dante Evangelista Attending Physician: Gianni Krause MD History of Present Illness 59-year-old male with a past medical history of hypertension, poor medical follow-up, alcohol abuse, IV drug abuse (methamphetamines) who presented to the hospital with increasing shortness of breath. Patient said he was cutting some tree branches on Wednesday of last week and hit his rib on his left side and subsequently had significant pain. He has been having coughing and weakness since that time and perhaps even prior to that injury. Denies any significant fevers or chills. Notes that his weight has been stable. He has smoked for approximately 40 years. He smoked upwards of 2 packs/day. He also endorses IV drug use in the form of methamphetamine possibly within the last month or 2. He is from [place] and has moved up to [place] in the [facility] to be with his parents. He currently lives in his parents house. He endorses that he has poor hygiene. He does note that he drinks alcohol and often alluded to drinking several beers during the day. He also notes that he drinks liquor. He would not quantify the amount that he drinks. Upon arrival to the ER on 01/09/2020 he was found to have a fracture of the left sixth rib, left basilar atelectasis and/or consolidation. Subsequent CT abdomen and chest was obtained. CT chest demonstrated a large loculated left pleural effusion with additional small loculated component in the left pericardial lingular position. Diffuse interstitial infiltrative changes of the left mid to lower lung were noted as well. I did perform a bedside ultrasound of the left chest wall which demonstrated a large septated effusion with areas of loculation and compressive atelectasis noted. I inserted a 14 Maltese pigtail catheter and heralded very cloudy yellow appearing fluid. He was hooked up to suction at -20 cm H2O. 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 Beliefs That Will Affect Care: None Current Living Situation: Alone Other Information That Helps Us Care for You: No Feels Safe at Home: Yes Safety Concerns: Feels Safe At This Time Smoking Status: Current every day smoker Tobacco Type: cigarettes ; Cigarettes Per Day: 1-2 PPD ; Hx Alcohol Use: Yes Alcohol type: beer Hx Substance Use: Yes substance use type: marijuana Last Used Substance: Unknown Last Used Substance Other:: years ago Review of Systems Review of Systems: All systems reviewed & are unremarkable except as noted in HPI & below Physical Exam Constitutional: Thin appearing male in no apparent distress. Jittery at times. Eyes: PERRL, conjunctivae normal, anicteric sclerae ENMT: external ear and nose normal, oropharynx normal Neck: normal visual inspection Respiratory: Very diminished breath sounds on the left with occasional crackles. Nontachypneic. Supplemental oxygen in place. Cardiovascular: 1-2+ pitting edema in the lower extremities. Regular rate and rhythm. No obvious murmurs. Gastrointestinal (Abdomen): normal bowel sounds, soft, nontender, no hepatosplenomegaly Musculoskeletal: no cyanosis or clubbing, extremities motor strength 5/5 Skin: no rashes, warm and dry Neurologic: PERRL, EOMI, accommodation nl, no face palsy, no dysarthria Psychiatric: Very talkative. Alert and oriented. Often alluding to the fact that this is "the end". Results & Data Results & Data ([facility]) Vital Signs (Past 12 Hours) Vital Signs Temp Pulse Pulse Resp BP BP Pulse Ox 01/10/20 14:48 99 H 01/10/20 13:26 85 18 92 01/10/20 11:53 95 01/10/20 11:52 97.7 F 53 L 22 120/73 89 L 01/10/20 09:07 97.0 F L 01/10/20 07:22 83 01/10/20 07:17 83 18 97 01/10/20 07:16 97.5 F L 91 H 18 116/73 97 01/10/20 06:08 102 H 01/10/20 04:18 97.9 F 97 H 25 H 117/68 92 I personally reviewed his lab data, chest imaging and recent notes. PG Care Time/CCT Total # of Minutes Spent Total Time Spent with Patient: Total time spent is greater than 50% in coordination of care (as documented) at patient's floor/unit and/or counseling patient: Coding Level of Care Code 10299 Initial Inpt Care Lvl 3 Diagnoses Parapneumonic effusion J18.9; J91.8 Acute hypoxemic respiratory failure J96.01 Alcoholism F10.20 Left rib fracture S22.32XA IV drug abuse F19.10 Time Spent (min) 121
--- NOTE | 2020-01-10 16:28 | XRay Report ---
SINGLE VIEW CHEST CLINICAL HISTORY: Chest tube placement. FINDINGS: An AP, portable, upright chest radiograph is compared to chest x-ray and chest CT dated 12/18. The examination is degraded by portable technique and patient rotation. The heart is top nor mal for projection noting atherosclerotic calcification of the thoracic aorta. Emphysema and chronic interstitial thickening are similar to previous. A pigtail catheter is now seen at the left lung base . There is a small residual pleural effusion with associated consolidation throughout the left lower lung. The pleural effusion has significantly decreased in size from yesterday. The right lung appears clear. No pneumothorax is seen. The skeletal structures are osteopenic. There are healed left bowling alley refinisher ior rib fractures. IMPRESSION: 1. A pigtail catheter is now seen at the left lung base. The left pleural effusion has significantly decreased in size from yesterday. 2. No pneumothorax is seen post procedure. 3. There is persistent airspace consolidation in the left mid to lower lung. 4. Emphysema. ACT 112: Negative or not required by law. Electronically signed by: Justin Stoll M.D. 01/10/2020 4:27 PM
[2020-01-10 16:50] LABS: Albumin Level 1.9 gm/dl (3.4-5.0); BUN Creatinine Ratio 19.4 (10-20); Calcium 9.1 mg/dl (8.5-10.1); Creatinine Clr Calc Pharmacy 104.6 ml/min; Est GFR (African American) 112.5; Est GFR (Non-African American) 97.1; Potassium 4.5 mmol/L (3.5-5.1)
[2020-01-10 16:53] LABS: Albumin Globulin Ratio 0.4 (0.9-2); Bilirubin,Total 0.3 mg/dl (0.2-1); Globulin 5.1 gm/dl (2.5-4.0)
[2020-01-10 17:22] LABS: Amylase Pleural Fluid 36 U/L; Glucose Pleural Fluid 1 mg/dl; LDH Pleural Fluid > 4000 U/L; Total Protein Pleural Fluid 4.9 g/dl
[2020-01-10 17:42] LABS: Appearance Pleural Fluid CLOUDY; Basophils, Fluid 0 %; Color Pleural Fluid YELLOW; Eosinophils, Fluid 0 %; Lymphocytes, Fluid 5 %; Mono,Macrophage,Mesothelial 1 %; Neutrophils, Fluid 94 %; RBC Pleural Fluid (A) 35000 /uL; Source Pleural Fluid LEFT LUNG; WBC Pleural Fluid (A) 94874 /uL
[2020-01-10] MEDS: DORNASE ALFA 5 ML in SYRINGE 25 ML IPL SCH (18:24)
[2020-01-10] MEDS: ALTEPLASE, RECOMBINANT 10 MG in SYRINGE 50 ML IPL SCH (18:24)
[2020-01-10] MEDS: PANTOprazole 40 MG in SYRINGE 0 ML IV SCH (20:40)
[2020-01-10 21:34] LABS: Amphetamines+Metham, Urine Neg (Neg); Barbiturates, Urine Neg (Neg); Benzodiazepine, Urine Neg (Neg); Cocaine, Urine Neg (Neg); MDMA (Ecstacy), Urine Neg (Neg); Methadone, Urine Neg (Neg); Opiate, Urine Pos (Neg); Phencyclidine, Urine Neg (Neg)
[2020-01-10] MEDS: OXYCODONE HCL IR 5 MG TAB (IMMEDIATE RELEASE) PO PRN (22:38)
[2020-01-11] MEDS: LEVALBUTEROL 1.25MG/0.5ML NEB INH SCH ×4 (00:11→19:19)
[2020-01-11] MEDS: IPRATROPIUM BROMIDE NEB SOLN 0.02% 2.5 ML VIAL INH SCH ×4 (00:11→19:20)
[2020-01-11] MEDS: PIPERACILLIN/TAZOBACTAM 3.375 GM in DEXTROSE 5% 100 ML IV SCH ×3 (05:09→21:21)
[2020-01-11] MEDS: ALTEPLASE, RECOMBINANT 10 MG in SYRINGE 50 ML IPL SCH ×2 (05:55→18:39)
[2020-01-11] MEDS: OXYCODONE HCL IR 5 MG TAB (IMMEDIATE RELEASE) PO PRN ×3 (06:03→15:11)
[2020-01-11] MEDS: DORNASE ALFA 5 ML in SYRINGE 25 ML IPL SCH ×2 (07:33→18:40)
[2020-01-11] MEDS: PANTOprazole 40 MG in SYRINGE 0 ML IV SCH ×2 (07:36→20:27)
[2020-01-11] MEDS: MULTIVITAMIN TAB PO SCH (07:37)
[2020-01-11] MEDS: NICOTINE 21 MG/24 HR TDSY TD SCH (07:37)
[2020-01-11] MEDS: GABAPENTIN 600 MG TAB PO SCH ×2 (07:37→15:11)
[2020-01-11] MEDS: THIAMINE HCL 100 MG TAB PO SCH (07:37)
[2020-01-11] MEDS: FOLIC ACID 1 MG TAB PO SCH (07:38)
[2020-01-11] MEDS: MoRPHine SULFATE 4 MG/ML 1 ML CARP\\VIAL IV PRN ×3 (07:45→19:39)
[2020-01-11 08:02] LABS: Hematocrit (blood only) 37.2 % (42-52); Hemoglobin 12.2 g/dL (14.0-18.0); Mean Corpuscular Hemoglobin 30.5 pg (25-34); Mean Corpuscular Hgb Conc 32.8 g/dL (32-36); Mean Platelet Volume 8.8 fL (7.4-10.4); Nucleated RBC # (auto) 0.04 K/uL (0-0); Nucleated RBC % (auto) 0.3 %; Platelet Count 566 K/uL (130-400); RDW Coefficient of Variation 14.2 % (11.5-14.5); RDW Standard Deviation 48.5 fL (36.4-46.3); White Blood Count 15.34 K/uL (4.8-10.8)
[2020-01-11 08:29] LABS: Basophils % (auto) 0.7 %; Eosinophils # (auto) 0.02 K/uL (0-0.5); Eosinophils % (auto) 0.1 %; Giant Platelets 1+; Immature Granulocytes # (auto) 1.44 K/uL (0.00-0.02); Immature Granulocytes % (auto) 9.4 %; Lymphocytes # (auto) 1.08 K/uL (1.2-3.4); Monocytes # (auto) 2.17 K/uL (0.11-0.59); Monocytes % (auto) 14.1 %; Neutrophils # (auto) 10.53 K/uL (1.4-6.5); Neutrophils % (auto) 68.7 %; Toxic Granulation 3+
[2020-01-11 08:35] LABS: Albumin Level 1.8 gm/dl (3.4-5.0); BUN Creatinine Ratio 17.9 (10-20); Calcium 9.1 mg/dl (8.5-10.1); Creatinine Clr Calc Pharmacy 113.1 ml/min; Est GFR (African American) 116.2; Est GFR (Non-African American) 100.3; Magnesium 2.4 mg/dl (1.8-2.4); Potassium 4.1 mmol/L (3.5-5.1)
[2020-01-11 08:43] LABS: Albumin Globulin Ratio 0.4 (0.9-2); Bilirubin,Total 0.3 mg/dl (0.2-1); Globulin 5.1 gm/dl (2.5-4.0); Phosphorus 2.8 mg/dl (2.5-4.9); Total Protein 6.9 gm/dl (6.4-8.2)
--- NOTE | 2020-01-11 08:46 | XRay Report ---
XR chest 1V portable CLINICAL HISTORY: s/p chest tube - pulled out COMPARISON STUDY: 01/10/2020 FINDINGS: The cardiac and mediastinal contours remain stable. There is a left pleural pigtail cathete r present. There is trace pleural air. Underlying emphysema is suspected. There are persistent airspa ce opacities in the left mid and lower lung zones. IMPRESSION: 1. No significant change in position of the pigtail left pleural catheter 2. Persistent left mid and lower lung zone airspace opacities ACT 112: Negative or not required by law. Electronically signed by: Mio Champagne M.D. 01/11/2020 6:58 AM
--- NOTE | 2020-01-11 08:46 | XRay Report ---
XR chest 1V portable CLINICAL HISTORY: s/p chest tube. Pleural effusion COMPARISON STUDY: 01/10/2020 FINDINGS: A left-sided chest tube is again visualized. The cardiac and mediastinal contours remain an underlying emphysema is suspected. There are persistent left mid and lower lung zone airspace opacit ies.[There is blunting of the left lateral costophrenic angle suggesting a small effusion. IMPRESSION: No significant change. Small left pleural effusion and left mid and lower lung zone airsp sonia opacities. Persistent left-sided pleural pigtail catheter. ACT 112: Negative or not required by law. Electronically signed by: Mio Champagne M.D. 01/11/2020 7:01 AM
--- NOTE | 2020-01-11 08:47 | XRay Report ---
XR chest 1V portable HISTORY: Chest tube COMPARISON: Chest 01/10/2020. FINDINGS: A left-sided tunneled catheter is again noted within the left lung base. Small left pleural effusion and left basilar densities have slightly improved. Old, healed left-sided rib fractures. No definite pneumothorax. The right lung remains clear. The heart remains mild enlarged. Mildly dilated gas-filled small bowel within the left upper quadrant is again noted. IMPRESSION: Left-sided chest tube is unchanged in position. No definite pneumothorax. Small left pleural effusion and left basilar densities have slightly improved. ACT 112: Negative or not required by law. Electronically signed by: Harsh Kumari M.D. 01/11/2020 8:05 AM
[2020-01-11] MEDS ORDERED: predniSONE 20 MG TAB PO SCH (09:00)
--- NOTE | 2020-01-11 10:04 | Pulmonology Progress Note ---
Date of Service January 11, 2020 Assessment & Plan (1) Parapneumonic effusion: 14 Kazakh pigtail catheter is in place on the left chest wall. Patient had over 2 L of purulent fluid out since yesterday. 2 different organisms are growing from the cultures of the fluid. Patient's pleural glucose was 1, LDH is greater than 4000 and pH was less than 6.60. This is a very significant empyema. There has been significant improvement radiographically. Should he decompensate, he would require transfer to tertiary center for thoracic surgery to perform a video-assisted thoracoscopy. Pleural fluid triglycerides sent. Continue mist protocol for 3 days. Will obtain a CT of his chest without c ontrast tomorrow morning. Continue IV Zosyn as you are doing. MRSA screen was negative. Urine drug screen was positive for THC. He does have a history of IV drug abuse per his account. Echo results pending. Blood cultures negative to date. Given his shortness of breath and pain control, I recommend [id number] pain medications. Of note, he does have an acute rib fracture which is likely exacerbating the pain along with the chest tube. I would hold off on steroids at this time given that he has an active empyema. I do not think that he is currently in a COPD exacerbation. DuoNebs every 4 hours is reasonable. I am also concerned that he is going to alcohol withdrawal. Pulmonary will continue to follow along with you. (2) Acute hypoxemic respiratory failure: (3) Alcoholism: (4) Left rib fracture: (5) IV drug abuse: (6) Tobacco abuse: Admission and Anticipated Discharge Date Admission Date: January 10, 2020 Subjective Chair complaining of shortness of breath and pain to his left shoulder. He notes that his pain is 7 out of 10. He has gotten IV morphine this morning. He has had approximately 2 L of purulent pleural fluid out of his left chest drain. He seems very irritable and keeps telling me that he is short of breath. Physical Exam Constitutional: Thin appearing male in no apparent distress. Jittery at times. Eyes: PERRL, conjunctivae normal, anicteric sclerae ENMT: external ear and nose normal, oropharynx normal Neck: normal visual inspection Respiratory: Very diminished breath sounds on the left with occasional crackles. Nontachypneic. Supplemental oxygen in place. Left chest tube drain in place. Left chest tube drain in place. Cardiovascular: 1-2+ pitting edema in the lower extremities. Regular rate and rhythm. No obvious murmurs. Gastrointestinal (Abdomen): normal bowel sounds, soft, nontender, no hepatosplenomegaly Musculoskeletal: no cyanosis or clubbing, extremities motor strength 5/5 Skin: no rashes, warm and dry Neurologic: PERRL, EOMI, accommodation nl, no face palsy, no dysarthria Psychiatric: Very talkative. Alert and oriented. Often alluding to the fact that this is "the end". Results & Data Results & Data ([facility]) Vital Signs (Past 12 Hours) Vital Signs Temp Pulse Pulse Resp BP Pulse Ox 01/11/20 07:43 98.1 F 101 H 20 175/79 H 95 01/11/20 06:59 91 H 18 91 01/11/20 04:14 98.6 F 92 H 18 150/89 H 97 01/11/20 01:05 98 H 01/11/20 00:11 90 18 98 01/11/20 00:09 99 H 01/10/20 23:09 98.4 F 97 H 18 157/90 H 96 PG Care Time/CCT Total # of Minutes Spent Total Time Spent with Patient: Total time spent is greater than 50% in coordination of care (as documented) at patient's floor/unit and/or counseling patient: Coding Level of Care Code 63687 Subseq Hosp Care Lvl 3 Diagnoses Parapneumonic effusion J18.9; J91.8 Acute hypoxemic respiratory failure J96.01 Alcoholism F10.20 Left rib fracture S22.32XA IV drug abuse F19.10 Tobacco abuse Z72.0
[2020-01-11] MEDS ORDERED: IPRATROPIUM BROMIDE/ALBUTEROL respimat INH INH PRN (10:09)
[2020-01-11] MEDS: SODIUM CHLORIDE 0.9% 1000ML 1,000 ML IV SCH (13:48)
--- NOTE | 2020-01-11 14:24 | Hospitalist Progress Note ---
Date of Service January 11, 2020 Assessment & Plan (1) Parapneumonic effusion: Left parapneumonic effusion consistent with empyema Status post pigtail catheter placement Has been on intravenous Zosyn and will continue Appreciate pulmonary input and recommendation Blood cultures have been negative Pleural fluid is growing gram-negative bacilli (2) Left rib fracture: Seems to be following traumatic injury to the left chest wall while cutting tree branches Complains of more pain with breathing With increased pain medications (3) Acute hypoxemic respiratory failure: Secondary to COPD exacerbation secondary to complicated pneumonia Longstanding tobacco use disorder Nebulized bronchodilator but no steroid for now Severe sepsis secondary to above at presentation U GIB, possible NSAID gastritis Anemia secondary to above Appreciate GI input and recommendation Situational hypertension Currently not on maintenance meds Possible alcohol withdrawal Will monitor blood pressure Ongoing tobacco abuse DVT prophylaxis. SCDs RE GI bleed Full code (4) Alcoholism: History of alcoholism Has been under gabapentin withdrawal protocol Clinically no significant signs of withdrawal (5) Tobacco abuse: Will put on nicotine patch Advised to quit drinking Admission and Anticipated Discharge Date Admission Date: January 10, 2020 Subjective The patient was seen and examined in medical telemetry unit He complains to have shortness of breath and chest pain and is status post left thoracotomy tube placement Remains anxious with mild symptoms of withdrawal Review of Systems Review of Systems: All systems reviewed and are unremarkable except as noted below Constitutional: + problem reported (Unsteadiness) Neurologic: + unsteadiness and + tremor(s) Physical Exam Physical Exam: Sitting at the edge of the bed with pain moderate shortness of breath Constitutional: well developed, well nourished, + acute distress (Shortness of breath) and + ill appearing Eyes: PERRL, conjunctivae normal, anicteric sclerae ENMT: external ear and nose normal, oropharynx normal Neck: trachea midline, no thyromegaly Respiratory: + respiratory distress (Minimal distress) and + labored breathing (Minimal) Auscultation: + diminished lung sounds and + crackles (Occasional crackles and decreased breath sound left base) Cardiovascular: Rate/Rhythm: regular rate and regular rhythm Heart Sounds: no murmur Gastrointestinal (Abdomen): Inspection/Auscultation: abdomen normal to inspection and normal bowel sounds; abdomen not distended Pe rcussion/Palpation: abdomen soft; abdomen nontender Musculoskeletal: No acute arthritis in any joints Neurologic: moves all extremities; no focal motor deficits Very anxious Psychiatric: Affect: + anxious affect Results & Data Results & Data ([facility]) Vital Signs (Past 12 Hours) Vital Signs Temp Pulse Resp BP Pulse Ox 01/11/20 13:23 105 H 18 91 01/11/20 11:39 36.6 C 97 H 20 155/96 H 93 01/11/20 07:43 36.7 C 101 H 20 175/79 H 95 01/11/20 06:59 91 H 18 91 01/11/20 04:14 37 C 92 H 18 150/89 H 97 Laboratory Results Short CBC 01/10/20 01/11/20 Range/Units 13:59 07:33 WBC 15.34 H (4.8-10.8) K/uL Hgb 11.9 L 12.2 L (14.0-18.0) g/dL Hct 35.7 L 37.2 L (42-52) % Plt Count 566 H (130-400) K/uL BMP 01/10/20 01/11/20 16:24 07:33 Sodium 133 L 131 L Potassium 4.5 4.1 Chloride 100 98 Carbon Dioxide 28 27 BUN 16 13 Creatinine 0.80 0.74 Glucose 139 H 116 H Calcium 9.1 9.1 Liver Function 01/10/20 01/11/20 Range/Units 16:24 07:33 Total Bilirubin 0.3 0.3 (0.2-1) mg/dl AST 9 L 9 L (15-37) U/L ALT 17 15 (12-78) U/L Alkaline Phosphatase 113 114 (45-117) U/L Albumin 1.9 L 1.8 L (3.4-5.0) gm/dl Medications Administered Current Inpatient Medications Acetaminophen (Tylenol) 650 mg PO Q4H PRN PRN Reason: Pain or Fever Stop: 02/09/20 04:17 Albuterol (Combivent Respimat) 1 puffs INH QIDR PRN PRN Reason: Shortness Of Breath Stop: 02/10/20 10:08 Folic Acid (Folvite) 1 mg PO QAM [facility] Stop: 02/09/20 08:59 Last Admin: 01/11/20 07:38 Dose: 1 mg Documented by: Gabapentin (Neurontin) 600 mg PO Q8H [facility] Stop: 01/11/20 16:01 Last Admin: 01/11/20 07:37 Dose: 600 mg Documented by: Gabapentin (Neurontin) 600 mg PO Q12H [facility] Stop: 01/12/20 16:01 Gabapentin (Neurontin) 600 mg PO Q24H [facility] Stop: 01/13/20 16:01 Sodium Chloride (Nss 1000ml) 1,000 mls @ 60 mls/hr IV .[id number] [facility] Stop: 02/09/20 03:44 Last Admin: 01/11/20 13:48 Dose: 60 mls/hr Documented by: Lorazepam (Ativan) 1 mg in 2 mls @ 2 mls/min IV UD PRN; Protocol PRN Reason: EtOH Withdrawl AWSS Score 6,7 Stop: 02/09/20 04:17 Lorazepam (Ativan) 2 mg in 4 mls @ 4 mls/min IV UD PRN; Protocol PRN Reason: EtOH Withdrawl AWSS Score 8,9 Stop: 02/09/20 04:17 Promethazine HCl 12.5 mg/ (Sodium Chloride) 50.5 mls @ 202 mls/hr IV Q6H PRN PRN Reason: Nausea And Vomiting Stop: 02/09/20 04:17 Lorazepam (Ativan) 3 mg in 6 mls @ 4 mls/min IV ONCE PRN; Protocol PRN Reason: EtOH Withdrawl AWSS Score >=10 Stop: 02/09/20 04:17 Piperacillin Sod/Tazobactam (Sod 3.375 gm/ Dextrose) 115 mls @ 28.75 mls/hr IV Q8H [facility]; Protocol Stop: 01/17/20 05:59 Last Admin: 01/11/20 13:49 Dose: 28.8 mls/hr Documented by: Pantoprazole Sodium 40 mg/ (Syringe) 10 mls @ 5 mls/min IV BID [facility] Stop: 02/09/20 20:59 Last Admin: 01/11/20 07:36 Dose: 5 mls/min Documented by: Alteplase, Recombinant 10 mg/ (Syringe) 60 mls @ 720 mls/hr IPL Q12H [facility]O; Protocol Stop: 01/13/20 06:04 Last Admin: 01/11/20 05:55 Dose: 720 mls/hr Documented by: Dornase Gee 5 ml/ Syringe 30 mls @ 360 mls/hr IPL Q12H [facility]; Protocol Stop: 01/13/20 07:04 Last Admin: 01/11/20 07:33 Dose: 360 mls/hr Documented by: Ipratropium [place] (Atrovent 0.02% 0.5mg/2.5ml) 0.5 mg INH Q6R [facility] Stop: 02/09/20 06:59 Last Admin: 01/11/20 13:23 Dose: 0.5 mg Documented by: Levalbuterol HCl (Xopenex 1.25mg/0.5ml Neb) 1.25 mg INH Q6R [facility] Stop: 02/09/20 06:59 Last Admin: 01/11/20 13:23 Dose: 1.25 mg Documented by: Miscellaneous (Remove Nicoderm Patch) 1 ea N/A DAILY@0859 [facility] Stop: 02/09/20 08:58 Last Admin: 01/11/20 07:37 Dose: Not Given Documented by: Miscellaneous Information (Consult) 1 ea N/A UD PRN PRN Reason: Consult Stop: 02/08/20 23:26 Morphine Sulfate (Morphine Sulfate) 4 mg IV Q3HWA PRN PRN Reason: Pain Stop: 01/24/20 04:17 Last Admin: 01/11/20 10:48 Dose: 4 mg Documented by: Multivitamins (Multivitamin Tab) 1 tab PO [facility] Stop: 02/09/20 08:59 Last Admin: 01/11/20 07:37 Dose: 1 tab Documented by: Nicotine (Nicoderm Cq) 21 mg TD [facility] Stop: 02/09/20 08:59 Last Admin: 01/11/20 07:37 Dose: Not Given Documented by: Oxycodone HCl (Roxicodone Immediate Rel) 5 mg PO Q4H PRN PRN Reason: Pain Stop: 01/24/20 04:17 Last Admin: 01/11/20 09:50 Dose: 5 mg Documented by: Thiamine HCl ([facility]itamin B-1) [facility] Stop: 02/10/20 08:59 Last Admin: 01/11/20 07:37 Dose: 100 mg Documented by:
[2020-01-11] MEDS ORDERED: Nursing to Pharmacy Communication SCH ×2 (16:00→23:15)
[2020-01-12] MEDS: IPRATROPIUM BROMIDE NEB SOLN 0.02% 2.5 ML VIAL INH SCH ×4 (00:28→19:28)
[2020-01-12] MEDS: LEVALBUTEROL 1.25MG/0.5ML NEB INH SCH ×4 (00:28→19:28)
[2020-01-12] MEDS: MoRPHine SULFATE 4 MG/ML 1 ML CARP\\VIAL IV PRN ×2 (01:25→04:30)
[2020-01-12] MEDS: GABAPENTIN 600 MG TAB PO SCH ×2 (03:05→16:24)
[2020-01-12] MEDS: PIPERACILLIN/TAZOBACTAM 3.375 GM in DEXTROSE 5% 100 ML IV SCH ×3 (05:30→22:10)
[2020-01-12 06:04] LABS: Hematocrit (blood only) 37.4 % (42-52); Hemoglobin 12.4 g/dL (14.0-18.0); Mean Corpuscular Hemoglobin 30.7 pg (25-34); Mean Corpuscular Hgb Conc 33.2 g/dL (32-36); Mean Corpuscular Volume 92.6 fL (80-100); Mean Platelet Volume 8.6 fL (7.4-10.4); Platelet Count 495 K/uL (130-400); RDW Coefficient of Variation 14.4 % (11.5-14.5); RDW Standard Deviation 48.3 fL (36.4-46.3); Red Blood Count 4.04 M/uL (4.7-6.1); White Blood Count 15.17 K/uL (4.8-10.8)
[2020-01-12 06:26] LABS: ALC (manual) 1.46 K/uL (1.2-3.4); ANC (manual) 11.21 K/uL (1.4-6.5); Eosinophils # (manual) 0.14 K/uL (0-0.5); Eosinophils % (manual) 0.9 %; Lymphocytes # (manual) 1.46 K/uL (1.2-3.4); Lymphocytes % (manual) 9.6 %; Metamyelocytes # (manual) 0.39 K/uL (0-0); Metamyelocytes % (manual) 2.6 %; Monocytes # (manual) 1.18 K/uL (0.11-0.59); Monocytes % (manual) 7.8 %; Myelocytes # (manual) 0.79 K/uL (0-0); Myelocytes % (manual) 5.2 %; Neutrophils # (manual) 11.21 K/uL (1.4-6.5); Neutrophils % (manual) 73.9 %; Toxic Granulation 1+
[2020-01-12 06:39] LABS: BUN Creatinine Ratio 19.4 (10-20); Calcium 8.8 mg/dl (8.5-10.1); Creatinine Clr Calc Pharmacy 111.6 ml/min; Est GFR (African American) 115.6; Est GFR (Non-African American) 99.7; Potassium 4.4 mmol/L (3.5-5.1)
[2020-01-12] MEDS: ALTEPLASE, RECOMBINANT 10 MG in SYRINGE 50 ML IPL SCH ×2 (06:47→18:30)
[2020-01-12] MEDS: OXYCODONE HCL IR 5 MG TAB (IMMEDIATE RELEASE) PO PRN ×2 (07:35→12:05)
[2020-01-12] MEDS: MULTIVITAMIN TAB PO SCH (07:36)
[2020-01-12] MEDS: FOLIC ACID 1 MG TAB PO SCH (07:36)
[2020-01-12] MEDS: NICOTINE 21 MG/24 HR TDSY TD SCH (07:37)
[2020-01-12] MEDS: THIAMINE HCL 100 MG TAB PO SCH (07:37)
--- NOTE | 2020-01-12 07:44 | CT Scan Report ---
CT chest wo con CLINICAL HISTORY: follow up empyema drainage COMPARISON STUDY: 01/09/2020 CT DOSE: 326.46 mGy.cm TECHNIQUE: CT of the thorax was performed from the thoracic inlet to the lung bases. Images are revi ewed in the axial, sagittal, and coronal planes. IV contrast was not administered for this examinatio n. A dose lowering technique was utilized adhering to the principles of ALARA. FINDINGS: Thyroid: Imaged portions of the thyroid gland are normal in appearance. Thoracic aorta: The thoracic aorta is normal in course and caliber, noting standard 3 vessel arch luli nba. Heart: The heart is normal in size. There are coronary artery calcifications present. Lungs and pleural spaces: There is a small right pleural effusion. There is been interval placement o f a left-sided chest tube with near complete interval drainage of the previously identified large lef t pleural fluid collection. There is severe pulmonary emphysema. There is lower lobe bronchial wall t hickening and bibasilar airspace opacities left greater than right with air bronchograms on the left. Mediastinum: Mediastinal lymph nodes are the upper limits of normal in size. Kacie: There is no evidence of pathologic hilar adenopathy given the limitations of a noncontrast stud y. Axilla: There is no evidence of pathologic axillary lymphadenopathy. Upper abdomen: Partially visualized upper abdominal viscera is within normal limits. Skeletal structures: There are no lytic or blastic osseous lesions. IMPRESSION: 1. Interval placement of a left-sided chest tube with marked interval reduction in amount of left ple ural fluid 2. Small right pleural effusion 3. Lower lobe bronchial wall thickening and bibasilar airspace opacities left greater than right with left-sided air bronchograms 4. Severe pulmonary emphysema ACT 112: Negative or not required by law. Electronically signed by: Mio Champagne M.D. 01/12/2020 7:43 AM
[2020-01-12] MEDS: DORNASE ALFA 5 ML in SYRINGE 25 ML IPL SCH ×2 (07:48→18:30)
[2020-01-12] MEDS: PANTOprazole 40 MG in SYRINGE 0 ML IV SCH ×2 (10:07→20:56)
[2020-01-12] MEDS ORDERED: SODIUM CHLORIDE 0.65% NA SOLN 45 ML (OCEAN) PRN (10:12)
[2020-01-12] MEDS: POLYETHYLENE (MIRALAX) 17 GM PACK PO SCH (14:03)
--- NOTE | 2020-01-12 14:37 | Hospitalist Progress Note ---
Date of Service January 12, 2020 Assessment & Plan (1) Parapneumonic effusion: Left parapneumonic effusion consistent with empyema Status post pigtail catheter placement Has been on intravenous Zosyn and will continue Appreciate pulmonary input and recommendation Blood cultures have been negative Pleural fluid is growing gram-negative bacilli and gram-positive cocci- sensitivity is pending Clinically better-we will continue current medications (2) Left rib fracture: Seems to be following traumatic injury to the left chest wall while cutting tree branches Complains of more pain with breathing With increased pain medications Pain seems to be controlled (3) Acute hypoxemic respiratory failure: Secondary to COPD exacerbation secondary to complicated pneumonia Longstanding tobacco use disorder Nebulized bronchodilator but no steroid for now Severe sepsis secondary to above at presentation Respiratory status has been improving U GIB, possible NSAID gastritis Anemia secondary to above Appreciate GI input and recommendation Situational hypertension Currently not on maintenance meds Possible alcohol withdrawal Will monitor blood pressure Ongoing tobacco abuse DVT prophylaxis. SCDs RE GI bleed Full code (4) Alcoholism: History of alcoholism Has been under gabapentin withdrawal protocol Clinically no significant signs of withdrawal (5) Tobacco abuse: Will put on nicotine patch Advised to quit drinking Admission and Anticipated Discharge Date Admission Date: January 10, 2020 Subjective The patient was seen and examined in medical telemetry unit He complains to have shortness of breath and chest pain and is status post left thoracotomy tube placement Remains anxious with mild symptoms of withdrawal 01/12/2020 The patient was seen and examined in medical telemetry unit He is a status post left thoracotomy tube placement for parapneumonic effusion Has been feeling lot better today with minimal shortness of breath at rest No signs of withdrawal symptoms Review of Systems Review of Systems: All systems reviewed and are unremarkable except as noted below Constitutional: + problem reported (Unsteadiness) Neurologic: + unsteadiness; no tremor(s) Physical Exam Physical Exam: Sitting at the edge of the bed with pain minimal shortness of breath Constitutional: well developed, well nourished, + acute distress (Shortness of breath) and + ill appearing Eyes: PERRL, conjunctivae normal, anicteric sclerae ENMT: external ear and nose normal, oropharynx normal Neck: trachea midline, no thyromegaly Respiratory: + respiratory distress (Minimal distress) and + labored breathing (Minimal) Auscultation: + diminished lung sounds (Bilaterally with occasional wheezing) and + crackles (Occasional crackles and decreased breath sound left base) Cardiovascular: Rate/Rhythm: regular rate and regular rhythm Heart Sounds: no murmur Gastrointestinal (Abdomen): Inspection/Auscultation: abdomen normal to inspection and normal bowel sounds; abdomen not distended Percussion/Palpation: abdomen soft; abdomen nontender Musculoskeletal: No acute arthritis involving any joints Neurologic: moves all extremities; no focal motor deficits Alert, awake and oriented x3 Psychiatric: Affect: + anxious affect Results & Data Results & Data ([facility]) Vital Signs (Past 12 Hours) Vital Signs Temp Pulse Resp BP BP Pulse Ox 01/12/20 13:27 71 20 97 01/12/20 11:39 36.7 C 91 H 16 151/89 H 99 01/12/20 07:56 36.3 C L 85 16 161/91 H 91 01/12/20 07:30 86 21 91 01/12/20 03:59 36.5 C 87 18 141/85 H 93 Laboratory Results Short CBC 01/12/20 Range/Units 05:54 WBC 15.17 H (4.8-10.8) K/uL Hgb 12.4 L (14.0-18.0) g/dL Hct 37.4 L (42-52) % Plt Count 495 H (130-400) K/uL BMP 01/12/20 05:54 Sodium 134 L Potassium 4.4 Chloride 99 Carbon Dioxide 30 BUN 14 Creatinine 0.75 Glucose 117 H Calcium 8.8 Medications Administered Current Inpatient Medications Acetaminophen (Tylenol) 650 mg PO Q4H PRN PRN Reason: Pain or Fever Stop: 02/09/20 04:17 Albuterol (Combivent Respimat) 1 puffs INH QIDR PRN PRN Reason: Shortness Of Breath Stop: 02/10/20 10:08 Folic Acid (Folvite) 1 mg PO QAM [facility] Stop: 02/09/20 08:59 Last Admin: 01/12/20 07:36 Dose: 1 mg Documented by: Gabapentin (Neurontin) 600 mg PO Q12H [facility] Stop: 01/12/20 16:01 Last Admin: 01/12/20 03:05 Dose: 600 mg Documented by: Gabapentin (Neurontin) 600 mg PO Q24H [facility] Stop: 01/13/20 16:01 Lorazepam (Ativan) 1 mg in 2 mls @ 2 mls/min IV UD PRN; Protocol PRN Reason: EtOH Withdrawl AWSS Score 6,7 Stop: 02/09/20 04:17 Lorazepam (Ativan) 2 mg in 4 mls @ 4 mls/min IV UD PRN; Protocol PRN Reason: EtOH Withdrawl AWSS Score 8,9 Stop: 02/09/20 04:17 Promethazine HCl 12.5 mg/ (Sodium Chloride) 50.5 mls @ 202 mls/hr IV Q6H PRN PRN Reason: Nausea And Vomiting Stop: 02/09/20 04:17 Lorazepam (Ativan) 3 mg in 6 mls @ 4 mls/min IV ONCE PRN; Protocol PRN Reason: EtOH Withdrawl AWSS Score >=10 Stop: 02/09/20 04:17 Piperacillin Sod/Tazobactam (Sod 3.375 gm/ Dextrose) 115 mls @ 28.75 mls/hr IV Q8H [facility]; Protocol Stop: 01/17/20 05:59 Last Admin: 01/12/20 13:34 Dose: 28.8 mls/hr Documented by: Pantoprazole Sodium 40 mg/ (Syringe) 10 mls @ 5 mls/min IV BID [facility] Stop: 02/09/20 20:59 Last Admin: 01/12/20 10:07 Dose: 5 mls/min Documented by: Alteplase, Recombinant 10 mg/ (Syringe) 60 mls @ 720 mls/hr IPL Q12H [facility]; Protocol Stop: 01/13/20 06:04 Last Admin: 01/12/20 06:47 Dose: 720 mls/hr Documented by: Dornase Gee 5 ml/ Syringe 30 mls @ 360 mls/hr IPL Q12H [facility]; Protocol Stop: 01/13/20 07:04 Last Admin: 01/12/20 07:48 Dose: 360 mls/hr Documented by: Ipratropium [place] (Atrovent 0.02% 0.5mg/2.5ml) 0.5 mg INH Q6R [facility] Stop: 02/09/20 06:59 Last Admin: 01/12/20 13:27 Dose: 0.5 mg Documented by: Levalbuterol HCl (Xopenex 1.25mg/0.5ml [facility] [place]) 1.25 mg INH Q6R [facility] Stop: 02/09/20 06:59 Last Admin: 01/12/20 13:27 Dose: 1.25 mg Documented by: Miscellaneous (Remove Nicoderm Patch) 1 ea N/A DAILY@0859 [facility] Stop: 02/09/20 08:58 Last Admin: 01/12/20 07:36 Dose: Not Given Documented by: Miscellaneous Information (Consult) 1 ea N/A UD PRN PRN Reason: Consult Stop: 02/08/20 23:26 Morphine Sulfate (Morphine Sulfate) 4 mg IV Q3HWA PRN PRN Reason: Pain Stop: 01/24/20 04:17 Last Admin: 01/12/20 04:30 Dose: 4 mg Documented by: Multivitamins (Multivitamin Tab) 1 tab PO [facility] Stop: 02/09/20 08:59 Last Admin: 01/12/20 07:36 Dose: 1 tab Documented by: Nicotine (Nicoderm Cq) 21 mg TD [facility] Stop: 02/09/20 08:59 Last Admin: 01/12/20 07:37 Dose: Not Given Documented by: Oxycodone HCl (Roxicodone Immediate Rel) 5 mg PO Q4H PRN PRN Reason: Pain Stop: 01/24/20 04:17 Last Admin: 01/12/20 12:05 Dose: 5 mg Documented by: Polyethylene Glycol (Miralax Powder Packet) 17 gm PO DAILY [facility] Stop: 02/11/20 13:44 Last Admin: 01/12/20 14:03 Dose: 17 gm Documented by: Sodium Chloride ([place] Nasal) 2 sprays NA PRN PRN PRN Reason: Nasal Congestion Stop: 02/11/20 10:11 Thiamine HCl (Vitamin B-1) 100 mg PO QAM [facility] Stop: 02/10/20 08:59 Last Admin: 01/12/20 07:37 Dose: 100 mg Documented by:
--- NOTE | 2020-01-12 15:47 | Pulmonology Progress Note ---
Date of Service January 12, 2020 Assessment & Plan (1) Parapneumonic effusion: 14 Bengali pigtail catheter is in place in the left chest wall. Patient continues to drain a significant amount of purulent fluid. CT of his chest today demonstrates substantial improvement in the empyema with minimal residual fluid. Empyema appears to be polymicrobial. Cultures are yet to be speciated. Continue Zosyn for now. Today will be the final day of the mist protocol. Will remove the chest tube once output drops below 150 mL/day. Additionally, the patient appears to be volume overloaded and has very significant lower extremity edema. The edema does appear asymmetric with right greater than left edema present. I am ordering an ultrasound of his lower extremities to rule out a DVT. It does not appear that he is on venous thromboembolism prophylaxis. I going to order Lovenox for prophylaxis. I am also going to order 40 mg of IV Lasix. He did note to me that he took Lasix at home. The CT of his chest also demonstrated significant upper lobe predominant centrilobular emphysema. I suspect that he likely has COPD. Pulmonary function testing will be needed as an outpatient. Complete smoking cessation advised. I went over the patient's imaging with the patient and the nurse at bedside. Pulmonary will continue to follow along with you. I did crisis intervention counselor the patient regarding his diagnosis and treatment plan and he expressed understanding. Greater than 50% of the time was spent [id number] with the patient counseling them on their diagnosis and treatment plan. This note was dictated using voice recognition software and may include grammatical errors, extra words, word substitutions and other inaccuracies due to errors in the voice recognition software and differences in speech patterns. (2) Acute hypoxemic respiratory failure: (3) Alcoholism: (4) Left rib fracture: (5) IV drug abuse: (6) Tobacco abuse: (7) Volume overload: (8) Asymmetric edema of both lower extremities: (9) Pulmonary emphysema: Admission and Anticipated Discharge Date Admission Date: January 10, 2020 Subjective Patient continues to have shortness of breath. Minimal cough. Minimal chest pain. Currently requiring 7 L of oxygen. Nurse notes that he has been more tachypneic when ambulating. No fevers present. Results & Data Results & Data ([facility]) Vital Signs (Past 12 Hours) Vital Signs Temp Pulse Resp BP BP Pulse Ox 01/12/20 13:27 71 20 97 01/12/20 11:39 98.1 F 91 H 16 151/89 H 99 01/12/20 07:56 97.3 F L 85 16 161/91 H 91 01/12/20 07:30 86 21 91 01/12/20 03:59 97.7 F 87 18 141/85 H 93 PG Care Time/CCT Total # of Minutes Spent Total Time Spent with Patient: Total time spent is greater than 50% in coordination of care (as documented) at patient's floor/unit and/or counseling patient: Coding Level of Care Code 58459 Subseq Hosp Care Lvl 3 Diagnoses Parapneumonic effusion J18.9; J91.8 Acute hypoxemic respiratory failure J96.01 Alcoholism F10.20 Left rib fracture S22.32XA IV drug abuse F19.10 Tobacco abuse Z72.0 Volume overload E87.70 Asymmetric edema of both lower extremities R60.9 Pulmonary emphysema J43.9
[2020-01-12] MEDS ORDERED: FUROSEMIDE 40 MG in SYRINGE 0 ML IV ONE (16:00)
--- NOTE | 2020-01-12 17:17 | Ultrasound Report ---
BILATERAL LOWER EXTREMITY VENOUS DOPPLER HISTORY: Leg swelling rule out dvt COMPARISON STUDY: None. FINDINGS: There is normal compressibility, flow, and augmentation within the bilateral lower extremit y deep venous systems. IMPRESSION: No DVT within the right or left lower extremity. ACT 112: Negative or not required by law. Electronically signed by: Harsh Kumari M.D. 01/12/2020 5:16 PM
[2020-01-13] MEDS: LEVALBUTEROL 1.25MG/0.5ML NEB INH SCH ×4 (01:00→19:31)
[2020-01-13] MEDS: IPRATROPIUM BROMIDE NEB SOLN 0.02% 2.5 ML VIAL INH SCH ×4 (01:00→19:31)
[2020-01-13] MEDS: MoRPHine SULFATE 4 MG/ML 1 ML CARP\\VIAL IV PRN ×3 (02:56→14:11)
[2020-01-13] MEDS: ALTEPLASE, RECOMBINANT 10 MG in SYRINGE 50 ML IPL SCH (06:07)
[2020-01-13] MEDS: PIPERACILLIN/TAZOBACTAM 3.375 GM in DEXTROSE 5% 100 ML IV SCH ×3 (06:14→21:45)
[2020-01-13 07:18] LABS: Hematocrit (blood only) 36.6 % (42-52); Hemoglobin 12.1 g/dL (14.0-18.0); Mean Corpuscular Hemoglobin 30.6 pg (25-34); Mean Corpuscular Hgb Conc 33.1 g/dL (32-36); Mean Corpuscular Volume 92.7 fL (80-100); Mean Platelet Volume 8.8 fL (7.4-10.4); Platelet Count 528 K/uL (130-400); RDW Coefficient of Variation 14.3 % (11.5-14.5); RDW Standard Deviation 48.2 fL (36.4-46.3); Red Blood Count 3.95 M/uL (4.7-6.1); White Blood Count 16.76 K/uL (4.8-10.8)
[2020-01-13 07:40] LABS: Basophils # (auto) 0.08 K/uL (0-0.2); Basophils % (auto) 0.5 %; Eosinophils % (auto) 0.6 %; Immature Granulocytes # (auto) 1.62 K/uL (0.00-0.02); Immature Granulocytes % (auto) 9.7 %; Lymphocytes # (auto) 1.18 K/uL (1.2-3.4); Monocytes % (auto) 6.6 %; Neutrophils # (auto) 12.68 K/uL (1.4-6.5); Neutrophils % (auto) 75.6 %
[2020-01-13 07:41] LABS: Toxic Granulation 2+
[2020-01-13] MEDS: DORNASE ALFA 5 ML in SYRINGE 25 ML IPL SCH (07:45)
[2020-01-13 07:56] LABS: Calcium 8.9 mg/dl (8.5-10.1); Creatinine Clr Calc Pharmacy 132.8 ml/min; Est GFR (African American) 124.1; Est GFR (Non-African American) 107.1; Potassium 3.9 mmol/L (3.5-5.1)
[2020-01-13 07:59] LABS: Codeine Urine NEGATIVE ng/mL (<50); Hydrocodone Urine NEGATIVE ng/mL (<50); Hydromor Urine NEGATIVE ng/mL (<50); Marijuana Quant, GCMS Urine 39 ng/mL (<5); Morphine Urine 2480 ng/mL (<50); Norhydrocodone Conf Ur NEGATIVE ng/mL (<50); Noroxycodone Urine NEGATIVE ng/mL (<50); Oxycodone Urine NEGATIVE ng/mL (<50); Oxymorph Urine NEGATIVE ng/mL (<50)
[2020-01-13] MEDS: ENOXAPARIN INJ 30 MG/0.3 ML SYR SQ SCH (08:49)
[2020-01-13] MEDS: NICOTINE 21 MG/24 HR TDSY TD SCH (08:49)
[2020-01-13] MEDS: MULTIVITAMIN TAB PO SCH (08:50)
[2020-01-13] MEDS: PANTOprazole 40 MG in SYRINGE 0 ML IV SCH (08:50)
[2020-01-13] MEDS: FOLIC ACID 1 MG TAB PO SCH (08:50)
[2020-01-13] MEDS: THIAMINE HCL 100 MG TAB PO SCH (08:50)
[2020-01-13] MEDS: POLYETHYLENE (MIRALAX) 17 GM PACK PO SCH (08:51)
--- NOTE | 2020-01-13 13:18 | Pulmonology Progress Note ---
Date of Service January 13, 2020 Assessment & Plan (1) Parapneumonic effusion: 14 Indonesian pigtail catheter is in place in the left chest wall. It appears that the 24-hour drainage is now down to 170 mL. He received his final instillation of TPA/dornase this morning. CT of his chest yesterday demonstrated substantial improvement in the empyema with minimal residual fluid. Empyema appears to be polymicrobial. He appears to be growing Haemophilus influenza and gram-positive cocci. Continue Zosyn for now. Will remove the chest tube once output drops below 150 mL/day. Additionally, the patient appears to be volume overloaded and has very significant lower extremity edema. Lower extremity Doppler negative for acute DVT. Continues to have significant swelling. Is demonstrating evidence of contraction alkalosis. I will give him a dose of acetazolamide today. Continue Lovenox for prophylaxis. No evidence of GI bleeding. The CT of his chest also demonstrated significant upper lobe predominant centrilobular emphysema. I suspect that he likely has COPD. Pulmonary function testing will be needed as an outpatient. Complete smoking cessation advised. Patient notes that he is feeling very anxious but does not want a nicotine patch currently. Pulmonary will continue to follow along with you. I did food counselor the patient regarding his diagnosis and treatment plan and he expressed understanding. Greater than 50% of the time was spent [id number] with the patient counseling them on their diagnosis and treatment plan. This note was dictated using voice recognition software and may include grammatical errors, extra words, word substitutions and other inaccuracies due to errors in the voice recognition software and differences in speech patterns. (2) Acute hypoxemic respiratory failure: (3) Alcoholism: (4) Left rib fracture: (5) IV drug abuse: (6) Tobacco abuse: (7) Volume overload: (8) Asymmetric edema of both lower extremities: (9) Pulmonary emphysema: Admission and Anticipated Discharge Date Admission Date: January 10, 2020 Subjective Patient describes that his breathing is improved today. He was moved from this to person room to a 1 person room due to Haemophilus influenza growing from the pleural fluid cultures. He has been afebrile. No chest pain, no nausea, no vomiting. He has some mild dried blood noted around the left chest tube. Physical Exam Constitutional: Thin appearing male in no apparent distress. Jittery at times. Eyes: PERRL, conjunctivae normal, anicteric sclerae ENMT: external ear and nose normal, oropharynx normal Neck: normal visual inspection Respiratory: Left chest tube in place with dried blood noted. Lung sounds clear on the left. Cardiovascular: 1-2+ pitting edema in the lower extremities. Regular rate and rhythm. No obvious murmurs. Gastrointestinal (Abdomen): normal bowel sounds, soft, nontender, no hepatosplenomegaly Musculoskeletal: no cyanosis or clubbing, extremities motor strength 5/5 Skin: no rashes, warm and dry Neurologic: PERRL, EOMI, accommodation nl, no face palsy, no dysarthria Psychiatric: Very talkative. Alert and oriented. Results & Data Results & Data ([facility]) Vital Signs (Past 12 Hours) Vital Signs Temp Pulse Pulse Resp BP Pulse Ox 01/13/20 11:35 97.7 F 83 16 151/82 H 96 01/13/20 10:21 92 01/13/20 07:30 97.9 F 79 16 149/81 H 95 01/13/20 07:21 85 01/13/20 07:18 79 16 95 01/13/20 03:24 98.4 F 83 18 147/64 H 94 PG Care Time/CCT Total # of Minutes Spent Total Time Spent with Patient: Total time spent is greater than 50% in coordination of care (as documented) at patient's floor/unit and/or counseling patient: Coding Level of Care Code 48903 Subseq Hosp Care Lvl 3 Diagnoses Parapneumonic effusion J18.9; J91.8 Acute hypoxemic respiratory failure J96.01 Alcoholism F10.20 Left rib fracture S22.32XA IV drug abuse F19.10 Tobacco abuse Z72.0 Volume overload E87.70 Asymmetric edema of both lower extremities R60.9 Pulmonary emphysema J43.9
[2020-01-13] MEDS ORDERED: acetaZOLAMIDE 250 MG in SYRINGE 0 ML IV SCH (13:45)
--- NOTE | 2020-01-13 14:11 | Hospitalist Progress Note ---
Date of Service January 13, 2020 Assessment & Plan (1) Parapneumonic effusion: Left parapneumonic effusion consistent with empyema Status post pigtail catheter placement Has been on intravenous Zosyn and will continue Appreciate pulmonary input and recommendation Blood cultures have been negative Pleural fluid is growing gram-negative bacilli and gram-positive cocci- sensitivity is pending Clinically better-we will continue current medication Gradual improvement The pleural fluid grew multiple organisms including Haemophilus influenzae He will be sent to isolation room for about 24 to 48 hours as per recommendation Continue current medications Zosyn intravenous (2) Left rib fracture: Seems to be following traumatic injury to the left chest wall while cutting tree branches Complains of more pain with breathing With increased pain medications Pain seems to be controlled (3) Acute hypoxemic respiratory failure: Secondary to COPD exacerbation secondary to complicated pneumonia Longstanding tobacco use disorder Nebulized bronchodilator but no steroid for now Severe sepsis secondary to above at presentation Respiratory status has been improving Respiratory symptoms are improving U GIB, possible NSAID gastritis Anemia secondary to above Appreciate GI input and recommendation Situational hypertension Currently not on maintenance meds Possible alcohol withdrawal Will monitor blood pressure Ongoing tobacco abuse DVT prophylaxis. SCDs RE GI bleed Full code (4) Alcoholism: History of alcoholism Has been under gabapentin withdrawal protocol Clinically no significant signs of withdrawal (5) Tobacco abuse: Will put on nicotine patch Advised to quit drinking Admission and Anticipated Discharge Date Admission Date: January 10, 2020 Subjective The patient was seen and examined in medical telemetry unit He complains to have shortness of breath and chest pain and is status post left thoracotomy tube placement Remains anxious with mild symptoms of withdrawal 01/12/2020 The patient was seen and examined in medical telemetry unit He is a status post left thoracotomy tube placement for parapneumonic effusion Has been feeling lot better today with minimal shortness of breath at rest No signs of withdrawal symptoms 01/13/2020 The patient was seen and examined in medical floor His pleural fluid grew Haemophilus influenzae and he was sent to isolation for at least 24 hours as per the guideline He has been feeling a lot better as of today No withdrawal symptoms Review of Systems Review of Systems: All systems reviewed and are unremarkable except as noted below Constitutional: + problem reported (Unsteadiness) Neurologic: + unsteadiness; no tremor(s) Physical Exam Physical Exam: Sitting at the edge of the bed without any significant symptoms Constitutional: well developed, well nourished, + acute distress (Shortness of breath) and + ill appearing Eyes: PERRL, conjunctivae normal, anicteric sclerae ENMT: external ear and nose normal, oropharynx normal Neck: trachea midline, no thyromegaly Respiratory: no respiratory distress (Minimal distress) and no labored br eathing (Minimal) Auscultation: + diminished lung sounds (Bilaterally with occasional wheezing) and + crackles (Occasional crackles and decreased breath sound left base) Cardiovascular: Rate/Rhythm: regular rate and regular rhythm Heart Sounds: no murmur Gastrointestinal (Abdomen): Inspection/Auscultation: abdomen normal to inspection and normal bowel sounds; abdomen not distended Percussion/Palpation: abdomen soft; abdomen nontender Musculoskeletal: No acute arthritis involving any joints Neurologic: moves all extremities; no focal motor deficits No tremors involving the outstretched hands Psychiatric: Affect: + anxious affect Results & Data Results & Data ([facility]) Vital Signs (Past 12 Hours) Vital Signs Temp Pulse Pulse Resp BP Pulse Ox 01/13/20 13:45 82 16 94 01/13/20 11:35 36.5 C 83 16 151/82 H 96 01/13/20 10:21 92 01/13/20 07:30 36.6 C 79 16 149/81 H 95 01/13/20 07:21 85 01/13/20 07:18 79 16 95 01/13/20 03:24 36.9 C 83 18 147/64 H 94 Laboratory Results Short CBC 01/13/20 Range/Units 06:49 WBC 16.76 H (4.8-10.8) K/uL Hgb 12.1 L (14.0-18.0) g/dL Hct 36.6 L (42-52) % Plt Count 528 H (130-400) K/uL BMP 01/13/20 06:49 Sodium 134 L Potassium 3.9 Chloride 95 L Carbon Dioxide 35 H BUN 9 D Creatinine 0.63 Glucose 99 Calcium 8.9 Medications Administered Current Inpatient Medications Acetaminophen (Tylenol) 650 mg PO Q4H PRN PRN Reason: Pain or Fever Stop: 02/09/20 04:17 Albuterol (Combivent Respimat) 1 puffs INH QIDR PRN PRN Reason: Shortness Of Breath Stop: 02/10/20 10:08 Enoxaparin Sodium (Lovenox) 30 mg SQ QAM [facility] Stop: 02/12/20 08:59 Last Admin: 01/13/20 08:49 Dose: 30 mg Documented by: Folic Acid (Folvite) 1 mg PO QAM [facility] Stop: 02/09/20 08:59 Last Admin: 01/13/20 08:50 Dose: 1 mg Documented by: Gabapentin (Neurontin) 600 mg PO Q24H [facility] Stop: 01/13/20 16:01 Lorazepam (Ativan) 1 mg in 2 mls @ 2 mls/min IV UD PRN; Protocol PRN Reason: EtOH Withdrawl AWSS Score 6,7 Stop: 02/09/20 04:17 Lorazepam (Ativan) 2 mg in 4 mls @ 4 mls/min IV UD PRN; Protocol PRN Reason: EtOH Withdrawl AWSS Score 8,9 Stop: 02/09/20 04:17 Promethazine HCl 12.5 mg/ (Sodium Chloride) 50.5 mls @ 202 mls/hr IV Q6H PRN PRN Reason: Nausea And Vomiting Stop: 02/09/20 04:17 Lorazepam (Ativan) 3 mg in 6 mls @ 4 mls/min IV ONCE PRN; Protocol PRN Reason: EtOH Withdrawl AWSS Score >=10 Stop: 02/09/20 04:17 Piperacillin Sod/Tazobactam (Sod 3.375 gm/ Dextrose) 115 mls @ 28.75 mls/hr IV Q8H [facility]; Protocol Stop: 01/17/20 05:59 Last Admin: 01/13/20 14:06 Dose: 28.8 mls/hr Documented by: Pantoprazole Sodium 40 mg/ (Syringe) 10 mls @ 5 mls/min IV BID [facility] Stop: 02/09/20 20:59 Last Admin: 01/13/20 08:50 Dose: 5 mls/min Documented by: Acetazolamide 250 mg/ Syringe 2.5 mls @ 5 mls/min IV 1345 [facility] Stop: 01/13/20 18:00 Last Admin: 01/13/20 14:03 Dose: 5 mls/min Documented by: Ipratropium [place] (Atrovent 0.02% 0.5mg/2.5ml) 0.5 mg INH Q6R [facility] Stop: 02/09/20 06:59 Last Admin: 01/13/20 13:43 Dose: 0.5 mg Documented by: Levalbuterol HCl (Xopenex 1.25mg/0.5ml Neb) 1.25 mg INH Q6R [facility] Stop: 02/09/20 06:59 Last Admin: 01/13/20 13:43 Dose: 1.25 mg Documented by: Miscellaneous (Remove Nicoderm Patch) 1 ea N/A DAILY@0859 [facility] Stop: 02/09/20 08:58 Last Admin: 01/13/20 08:49 Dose: Not Given Documented by: Miscellaneous Information (Consult) 1 ea N/A UD PRN PRN Reason: Consult Stop: 02/08/20 23:26 Morphine Sulfate (Morphine Sulfate) 4 mg IV Q3HWA PRN PRN Reason: Pain Stop: 01/24/20 04:17 Last Admin: 01/13/20 08:55 Dose: 4 mg Documented by: Multivitamins (Multivitamin Tab) [facility] [place] Stop: 02/09/20 08:59 Last Admin: 01/13/20 08:50 Dose: 1 tab Documented by: Nicotine (Nicoderm Cq) 21 mg TD [facility] Stop: 02/09/20 08:59 Last Admin: 01/13/20 08:49 Dose: Not Given Documented by: Oxycodone HCl (Roxicodone Immediate Rel) 5 mg PO Q4H PRN PRN Reason: Pain Stop: 01/24/20 04:17 Last Admin: 01/12/20 12:05 Dose: 5 mg Documented by: Polyethylene Glycol (Miralax Powder Packet) 17 gm PO DAILY [facility] Stop: 02/11/20 13:44 Last Admin: 01/13/20 08:51 Dose: Not Given Documented by: Sodium Chloride ([place] Nasal) 2 sprays NA PRN PRN PRN Reason: Nasal Congestion Stop: 02/11/20 10:11 Thiamine HCl (Vitamin B-1) 100 mg PO QAM [facility] Stop: 02/10/20 08:59 Last Admin: 01/13/20 08:50 Dose: 100 mg Documented by:
[2020-01-13] MEDS ORDERED: GABAPENTIN 600 MG TAB PO SCH (16:00)
[2020-01-13] MEDS: OXYCODONE HCL IR 5 MG TAB (IMMEDIATE RELEASE) PO PRN (16:55)
[2020-01-13] MEDS: PANTOprazole 40 MG TAB PO SCH (21:45)
[2020-01-14] MEDS: IPRATROPIUM BROMIDE NEB SOLN 0.02% 2.5 ML VIAL INH SCH ×3 (00:51→13:09)
[2020-01-14] MEDS: LEVALBUTEROL 1.25MG/0.5ML NEB INH SCH ×3 (00:51→13:09)
[2020-01-14] MEDS: PIPERACILLIN/TAZOBACTAM 3.375 GM in DEXTROSE 5% 100 ML IV SCH (06:04)
[2020-01-14] MEDS: POLYETHYLENE (MIRALAX) 17 GM PACK PO SCH (07:43)
[2020-01-14] MEDS: MULTIVITAMIN TAB PO SCH (07:44)
[2020-01-14] MEDS: THIAMINE HCL 100 MG TAB PO SCH (07:44)
[2020-01-14] MEDS: FOLIC ACID 1 MG TAB PO SCH (07:44)
[2020-01-14] MEDS: NICOTINE 21 MG/24 HR TDSY TD SCH (07:45)
[2020-01-14] MEDS: ENOXAPARIN INJ 30 MG/0.3 ML SYR SQ SCH (07:45)
[2020-01-14] MEDS: PANTOprazole 40 MG TAB PO SCH (07:45)
[2020-01-14 10:31] LABS: Hematocrit (blood only) 35.6 % (42-52); Hemoglobin 11.4 g/dL (14.0-18.0); Mean Corpuscular Hemoglobin 30.1 pg (25-34); Mean Corpuscular Volume 93.9 fL (80-100); Mean Platelet Volume 8.3 fL (7.4-10.4); Platelet Count 567 K/uL (130-400); RDW Coefficient of Variation 14.5 % (11.5-14.5); Red Blood Count 3.79 M/uL (4.7-6.1); White Blood Count 20.07 K/uL (4.8-10.8)
[2020-01-14 11:07] LABS: BUN Creatinine Ratio 11.8 (10-20); Calcium 8.7 mg/dl (8.5-10.1); Creatinine Clr Calc Pharmacy 113.1 ml/min; Est GFR (African American) 116.2; Est GFR (Non-African American) 100.3; Potassium 3.5 mmol/L (3.5-5.1)
[2020-01-14 11:08] LABS: Basophils # (auto) 0.13 K/uL (0-0.2); Basophils % (auto) 0.6 %; Eosinophils # (auto) 0.23 K/uL (0-0.5); Eosinophils % (auto) 1.1 %; Immature Granulocytes # (auto) 1.91 K/uL (0.00-0.02); Immature Granulocytes % (auto) 9.5 %; Lymphocytes # (auto) 1.33 K/uL (1.2-3.4); Lymphocytes % (auto) 6.6 %; Monocytes # (auto) 1.21 K/uL (0.11-0.59); Neutrophils # (auto) 15.26 K/uL (1.4-6.5); Neutrophils % (auto) 76.2 %; Toxic Granulation 2+
--- NOTE | 2020-01-14 11:20 | XRay Report ---
XR chest 2V PA/lateral HISTORY: follow up chest tube/empyema COMPARISON: Chest 01/11/2020. FINDINGS: Left-sided chest tube is unchanged in position. No pneumothorax. Small left pleural effusio n and left basilar densities have slightly improved. The heart is normal in size. The right lung is c lear. IMPRESSION: Small left pleural effusion left basilar densities have improved. The left-sided chest tube is unchan ged in position. ACT 112: Negative or not required by law. Electronically signed by: Harsh Kumari M.D. 01/14/2020 11:18 AM
--- NOTE | 2020-01-14 12:42 | Hospitalist Progress Note ---
Date of Service January 14, 2020 Assessment & Plan (1) Parapneumonic effusion: Left parapneumonic effusion consistent with empyema Status post pigtail catheter placement Has been on intravenous Zosyn and will continue Appreciate pulmonary input and recommendation Blood cultures have been negative Pleural fluid is growing gram-negative bacilli and gram-positive cocci- sensitivity is pending Clinically better-we will continue current medication Gradual improvement The pleural fluid grew multiple organisms including Haemophilus influenzae beta- lactamase negative and is pansensitive Continue current medications Zosyn intravenous Repeat chest x-ray did show decrease in pleural fluid Awaiting the chest tube to be 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 White count remains elevated at 20,000 (2) Left rib fracture: Seems to be following traumatic injury to the left chest wall while cutting tree branches Complains of more pain with breathing With increased pain medications Pain seems to be controlled (3) Acute hypoxemic respiratory failure: Secondary to COPD exacerbation secondary to complicated pneumonia Longstanding tobacco use disorder Nebulized bronchodilator but no steroid for now Severe sepsis secondary to above at presentation Respiratory status has been improving Respiratory symptoms are improving Not requiring any more oxygen U GIB, possible NSAID gastritis Anemia secondary to above Appreciate GI input and recommendation Situational hypertension Currently not on maintenance meds Possible alcohol withdrawal Will monitor blood pressure Ongoing tobacco abuse DVT prophylaxis. SCDs RE GI bleed Full code (4) Alcoholism: History of alcoholism Has been under gabapentin withdrawal protocol Clinically no significant signs of withdrawal Strongly advised to quit drinking (5) Tobacco abuse: Will put on nicotine patch Advised to quit drinking Admission and Anticipated Discharge Date Admission Date: January 10, 2020 Subjective The patient was seen and examined in medical telemetry unit He complains to have shortness of breath and chest pain and is status post left thoracotomy tube placement Remains anxious with mild symptoms of withdrawal 01/12/2020 The patient was seen and examined in medical telemetry unit He is a status post left thoracotomy tube placement for parapneumonic effusion Has been feeling lot better today with minimal shortness of breath at rest No signs of withdrawal symptoms 01/13/2020 The patient was seen and examined in medical floor His pleural fluid grew Haemophilus influenzae and he was sent to isolation for at least 24 hours as per the guideline He has been feeling a lot better as of today No withdrawal symptoms 01/14/2020 The patient was seen and examined in medical floor He has been feeling a lot better wants to go home He has had chest x-ray done today and that shows minimal pleural fluid Denies any significant symptoms Review of Systems Review of Systems: All systems reviewed and are unremarkable except as noted below Constitutional: + problem reported (Unsteadiness) Neurologic: no unsteadiness and no tremor(s) Physical Exam Physical Exam: Sitting at the edge of the bed without any significant symptoms Constitutional: well developed, well nourished, + acute distress (Shortness of breath) and + ill appearing Eyes: PERRL, conjunctivae normal, anicteric sclerae ENMT: external ear and nose normal, oropharynx normal Neck: trachea midline, no thyromegaly Respiratory: no respiratory distress (Minimal distress) and no labored breathing (Minimal) Auscultation: + diminished lung sounds (Bilaterally with occasional wheezing) and + crackles (Occasional crackles and decreased breath sound left base) Cardiovascular: Rate/Rhythm: regular rate and regular rhythm Heart Sounds: no murmur Gastrointestinal (Abdomen): Inspection/Auscultation: abdomen normal to inspection and normal bowel sounds; abdomen not distended Percussion/Palpation: abdomen soft; abdomen nontender Neurologic: moves all extremities; no focal motor deficits Psychiatric: Affect: + anxious affect Results & Data Results & Data ([facility]) Vital Signs (Past 12 Hours) Vital Signs Temp Pulse Pulse Resp BP Pulse Ox 01/14/20 11:42 36.8 C 77 16 124/71 92 01/14/20 08:00 70 01/14/20 07:55 36.6 C 56 L 17 114/69 93 01/14/20 07:20 80 18 92 01/14/20 03:00 36.7 C 78 20 126/74 96 01/14/20 00:52 83 18 97
--- NOTE | 2020-01-14 13:13 | Pulmonology Progress Note ---
Date of Service January 14, 2020 Assessment & Plan (1) Parapneumonic effusion: I removed the 14 [place]iquais pigtail chest tube from the left pleural cavity today. Output has been minimal over the last 24 hours. He is growing Haemophilus influenza and Streptococcus intermedius. The Haemophilus appears to be pansensitive. Recommend a total of 6 weeks of antibiotics. Given that this is a polymicrobial infection, would recommend Augmentin for 5 additional weeks. He continues to appear generally volume overloaded likely related to his low oncotic pressure from hypoalbuminemia and possibly from some degree of mild secondary pulmonary retention. I recommend giving him some nutritional supple ments and sending him home on a low dose of Lasix with daily weight checks. The CT of his chest also demonstrated significant upper lobe predominant centrilobular emphysema. I suspect that he likely has COPD. Pulmonary function testing will be needed as an outpatient. Complete smoking cessation advised. Patient is safe to be discharged home. Will need a repeat CT chest in 2 weeks. I would like to have him follow-up in the pulmonary clinic with me in 2 weeks. I did director counseling bureau the patient regarding his diagnosis and treatment plan and he expressed understanding. Greater than 50% of the time was spent [id number] with the patient counseling them on their diagnosis and treatment plan. This note was dictated using voice recognition software and may include grammatical errors, extra words, word substitutions and other inaccuracies due to errors in the voice recognition software and differences in speech patterns. (2) Acute hypoxemic respiratory failure: (3) Alcoholism: (4) Left rib fracture: (5) IV drug abuse: (6) Tobacco abuse: (7) Volume overload: (8) Asymmetric edema of both lower extremities: (9) Pulmonary emphysema: (10) Moderate protein-energy malnutrition: Admission and Anticipated Discharge Date Admission Date: January 10, 2020 Subjective Patient continues to do very well. Pleural fluid drainage has been minimal. He continues to have some mild chest pain on the left where he has had the rib fracture. Denies any significant shortness of breath. Ambulating around the room. No nausea or vomiting. Physical Exam Constitutional: Thin appearing male in no apparent distress. Jittery at times. Eyes: PERRL, conjunctivae normal, anicteric sclerae ENMT: external ear and nose normal, oropharynx normal Neck: normal visual inspection Respiratory: Left chest tube in place with dried blood noted. Lung sounds clear on the left. Cardiovascular: 1-2+ pitting edema in the lower extremities. Regular rate and rhythm. No obvious murmurs. Gastrointestinal (Abdomen): normal bowel sounds, soft, nontender, no hepatosplenomegaly Musculoskeletal: no cyanosis or clubbing, extremities motor strength 5/5 Skin: no rashes, warm and dry Neurologic: PERRL, EOMI, accommodation nl, no face palsy, no dysarthria Psychiatric: Very talkative. Alert and oriented. Results & Data Results & Data ([facility]) Vital Signs (Past 12 Hours) Vital Signs Temp Pulse Pulse Resp BP Pulse Ox 01/14/20 11:42 98.2 F 77 16 124/71 92 01/14/20 08:00 70 01/14/20 07:55 97.9 F 56 L 17 114/69 93 01/14/20 07:20 80 18 92 01/14/20 03:00 98.1 F 78 20 126/74 96 PG Care Time/CCT Total # of Minutes Spent Total Time Spent with Patient: Total time spent is greater than 50% in coordination of care (as documented) at patient's floor/unit and/or counseling patient: Coding Level of Care Code 10747 Subseq Hosp Care Lvl 3 Diagnoses Parapneumonic effusion J18.9; J91.8 Acute hypoxemic respiratory failure J96.01 Alcoholism F10.20 Left rib fracture S22.32XA IV drug abuse F19.10 Tobacco abuse Z72.0 Volume overload E87.70 Asymmetric edema of both lower extremities R60.9 Pulmonary emphysema J43.9 Moderate protein-energy malnutrition E44.0
--- NOTE | 2020-01-14 13:14 | Procedure Note ---
Procedure Note Date of Service January 14, 2020 Note I donned sterile gloves. I cut the suture from the chest wall. I slowly removed the pigtail catheter and then placed a Vaseline gauze over the incision site. I then also placed several 4 x 4's and taped the area over. Instruction to not shower today and remove the gauze tomorrow. There was some drainage from the site likely related to interstitial edema. Coding CPT Codes Pulmonary/Thoracic - Pulmonary and Thoracic: 88482 Remove lung catheter ([id number]) [facility] [place] Procedure Codes (Charges) Pulmonary/Thoracic Procedure 3: Pulmonary and Thoracic: 29232 Remove lung catheter
[2020-01-14] MEDS ORDERED: AMOXICILLIN/CLAVULANATE 875 MG TAB PO SCH (17:00)
--- NOTE | 2020-01-15 08:03 | Discharge Summary ---
Date of Service January 15, 2020 Admission HPI Per Admitting Provider History obtained from patient and records. Medical history significant for COPD, hypertension (currently not on meds), daily alcohol intake, ongoing tobacco abuse. Patient is a resident of [facility] who has been in [place] residing with his parents since last year to attend to some family concerns. About 4 days ago, a branch hit patient's left chest/flank while he was cutting bushes at his parents' home. Achy pleuritic pain with worsening junky cough and shortness of breath symptoms. No aspiration as per patient. No known sick contacts/COVID-19 exposure. No fever, no chills. Intake of at least 5 tablets of OTC NSAID daily since injury. Stools noted to be dark along with achy abdominal pain. No emesis. EMS called for worsening symptoms last night. Patient noted to be hypoxemic, O2 sats 80s. Patient brought to the ER. Given IV Zosyn for sepsis. 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 Admission Exam Per Admitting Provider Physical Exam: GENERAL: uncomfortable, minimal respiratory distress SKIN: Pallor color, warm HEENT: Pale palpebral conjunctivae, no ptosis, dry buccal mucosa, nasal cannula in place NECK : Supple, no tenderness CHEST : Decreased breath sounds, diffuse expiratory wheezes , no tenderness HEART : Tachycardic, no obvious murmurs ABDOMEN: Some distention, nontender RECTAL : Intact sphincter, fleshy anal skin tag, dark stool (FOBT positive ) EXTREMITIES : No LE swelling/tenderness, no other conspicuous deformities noted NEUROLOGIC : Coherent, no facial asymmetry, no other gross focality Principal Diagnosis Parapneumonic effusion, acute hypoxic respiratory failure ,traumatic left rib fracture, alcohol and tobacco abuse Discharge Exam Constitutional well developed, well nourished, + acute distress (Shortness of breath) and + ill appearing Eyes PERRL, conjunctivae normal, anicteric sclerae ENMT external ear and nose normal, oropharynx normal Neck trachea midline, no thyromegaly Respiratory no respiratory distress (Minimal distress) and no labored breathing (Minimal) Auscultation: + diminished lung sounds (Bilaterally with occasional wheezing) and + crackles (Occasional crackles and decreased breath sound left base) Cardiovascular Rate/Rhythm: regular rate and regular rhythm Heart Sounds: no murmur Gastrointestinal (Abdomen) Inspection/Auscultation: abdomen normal to inspection and normal bowel sounds; abdomen not distended Percussion/Palpation: abdomen soft; abdomen nontender Neurologic moves all extremities; no focal motor deficits Psychiatric Affect: + anxious affect Discharge Data Allergies Allergy/AdvReac Type Severity Reaction Status Date / Time phenobarbital Allergy Unknown Verified 01/09/20 23:45 Consultations 01/09/20 23:41 ED Decision to Admit Stat 01/10/20 04:18 Consult Case Management - Discharge Planning Routine Consult Gastroenterology Routine Consult Pulmonology Routine Ordered Studies 01/09/20 22:08 CT angio chest PE protocol Urgent 01/10/20 01:43 CT abd pelvis wo con Urgent 01/10/20 14:44 US point of care ultrasound Stat 01/12/20 06:00 CT chest wo con Urgent 01/12/20 15:34 US venous doppler [facility] Urgent Hospital Course (1) Parapneumonic effusion: Left parapneumonic effusion consistent with empyema Status post pigtail catheter placement Has been on intravenous Zosyn and will continue Appreciate pulmonary input and recommendation Blood cultures have been negative Pleural fluid is growing gram-negative bacilli and gram-positive cocci- sensitivity is pending Clinically better-we will continue current medication Gradual improvement The pleural fluid grew multiple organisms including Haemophilus influenzae beta- lactamase negative and is pansensitive Continue current medications Zosyn intravenous Repeat chest x-ray did show decrease in pleural fluid 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 White count remains elevated at 20,000 (2) Left rib fracture: Seems to be following traumatic injury to the left chest wall while cutting tree branches Complains of more pain with breathing With increased pain medications Pain seems to be controlled (3) Acute hypoxemic respiratory failure: Secondary to COPD exacerbation secondary to complicated pneumonia Longstanding tobacco use disorder Nebulized bronchodilator but no steroid for now Severe sepsis secondary to above at presentation Respiratory status has been improving Respiratory symptoms are improving Not requiring any more oxygen U GIB, possible NSAID gastritis Anemia secondary to above Appreciate GI input and recommendation Situational hypertension Currently not on maintenance meds Possible alcohol withdrawal Will monitor blood pressure Ongoing tobacco abuse DVT prophylaxis. SCDs RE GI bleed Full code (4) Alcoholism: History of alcoholism Has been under gabapentin withdrawal protocol Clinically no significant signs of withdrawal Strongly advised to quit drinking (5) Tobacco abuse: Will put on nicotine patch Advised to quit drinking Total Time Total Time Spent Total Time Spent (In Minutes): 35 minutes Total Time Includes: Examination of the Patient, Discharge Planning, Medication Reconciliation and Communication With Other Providers Discharge Plan Discharge Items Patient Disposition: Home - Self-Care Reason For Visit: SEPSIS Discharge Diagnosis: Parapneumonic effusion, acute hypoxic respiratory failure ,traumatic left rib fracture, alcohol and tobacco abuse Condition on Discharge: Fair Activity: Resume your previous activity Non-emergency contact: Primary Care Provider Call non-emergency contact if: you have any medication questions and your symptoms worsen Follow-up/Referrals: Wilmer Mukherjee MD [Physician] - (Please make an appointment with Dr. Leon 2 weeks) PCP,NO [Primary Care Provider] - (Please make an appointment with your primary care provider within 7 days) Diet: Regular Addtl Attending Provider Instructions: Please take precaution to avoid fall Keep changing dressing as advised Strongly advised to quit drinking of alcohol Quit smoking Pending Studies at Discharge: No Stand-Alone Forms: My [facility] [employer], Smoking Cessation Medications and DC Order Prescriptions: New multivitamin [Daily-Sekou] Tablet 1 tab PO QAM 30 Days Qty: 30 RF: 0 thiamine HCl (vitamin B1) [Vitamin B-1] 100 mg Tablet 100 mg PO QAM 30 Days Qty: 30 RF: 0 pantoprazole 40 mg Tablet,Delayed Release (Dr/Ec) 40 mg PO BID 30 Days Qty: 60 RF: 0 nicotine [Nicoderm CQ] 21 mg/24 hr Patch 24 Hour 21 mg transdermal QAM 30 Days Qty: 30 RF: 0 folic acid 1 mg Tablet 1 mg PO QAM 30 Days Qty: 30 RF: 0 amoxicillin-pot clavulanate [Augmentin] 875-125 mg Tablet 1 tab PO BIDM 35 Days Qty: 70 RF: 0 Combivent Respimat 20-100 mcg/actuation Mist 1 puff inhalation QIDR PRN (Reason: wheezing) 30 Days Qty: 1 RF: 0 Lactinex 1 million cell tablet,chewable 1 tab PO TID Qty: 120 RF: 0 No Action No Known Home Medications RF: 0 Discharge Orders: Discharge Order (Routine); Ordered 01/14/20 Ordered By: Gianni Krause Admission Data Admit Date/Time: 01/10/20 01:49 Attending Provider: Gianni Krause Admit Provider: Harsha Andrew Primary Care Provider: PCP,JEAN Other Providers: Harsha Andrew ; Saw Gutierrez ; Diane Chand ; Ely Walker ; Meena Alicea ; José Luis Kang ; Mandy Croft ; Elaine Dailey ; Carlotta Smart ; Manjit Ramsey ; Fred Ceron ; Genia Piña ; Valorie Segura ; Yaquelin Faith ; Salome Soler ; Kerry Lees ; Manjit Benton ; George Sands ; Nataliya Doty ; Justin Riley ; Harsha Floyd ; Wilmer Mukherjee ; Dov Roach ; Myesha Fay Other Interventions: Discharge Summary Assessment (RN) Last Done: 01/14/20 14:16 DC Date/Time DO NOT enter until pt leaves facility: 01/14/20 14:48
== END 2020-01-14 14:48 | disposition home or self-care (01) | DRG 871 ==
LOC: ED 20:27 → 2N 01-10 01:49 → 2W 01-13 12:47

== ENCOUNTER 2020-03-11 02:46 | Inpatient (IN) ==
[2020-03-11] MEDS ORDERED: methylPREDNISolone 125 MG/2 ML VIAL IV STA (02:52)
[2020-03-11] MEDS ORDERED: ALBUT/IPRATROP 3MG/0.5MG NEB 3 ML VIAL NEB ONE (02:52)
[2020-03-11 03:01] LABS: Hematocrit (blood only) 32.8 % (42-52); Hemoglobin 11.1 g/dL (14.0-18.0); Mean Corpuscular Hgb Conc 33.8 g/dL (32-36); Mean Corpuscular Volume 82.8 fL (80-100); Mean Platelet Volume 7.9 fL (7.4-10.4); Platelet Count 599 K/uL (130-400); RDW Coefficient of Variation 16.7 % (11.5-14.5); RDW Standard Deviation 50.9 fL (36.4-46.3); Red Blood Count 3.96 M/uL (4.7-6.1); White Blood Count 27.69 K/uL (4.8-10.8)
--- NOTE | 2020-03-11 03:08 | Emergency Department Note ---
Impression & Plan Acute respiratory failure with hypoxia, Sepsis, Left upper lobe pneumonia, Leukocytosis, COPD with acute exacerbation ED Provider Note Name: EFREN OVIEDO JR Age: 59 Sex: M Arrives Via: Ambulance Informant: Patient, EMS, Chart ED Provider: Chandrakant Gregg MD Chief Complaint: Shortness of breath Impression: Acute Respiratory Failure with Hypoxia Sepsis Left Upper Lobe Pneumonia COPD with Acute Exacerbation Medical Decision Makin yr old male with acute respiratory failure with hypoxia. History of COPD, Alcoholism, IVDU who was admitted 2 months ago for sepsis secondary to left parapneumonic effusion. Worsening breathing over the last week and acutely worse this evening. Sats in 70s on RA and severely unwell appearing. Edema bilateral legs though by exam clearly dry. Sepsis protocols followed with 30ml/kg IV fluids started and empiric broad spectrum abx ordered. CXR with large left lung white out consistent with pneumonia and likely small effusion. He has WBC 27, febrile and tachy consistent with sepsis. Lactate and BP OK and with HR coming down hold off on further fluids after 0.5 L EMS and 2L ED plus fluids from ABX, thus total > 30ml/kg IV fluids here. Patient was also given prolonged duoneb treatment with vast improvement in breathing. He is septic though not in acute shock and is improving rapidly with treatments and fluids. Hospitalist consulted for further management. Isolation PPE used until Covid negative. Prior Medical Record and Triage/Nursing Notes reviewed by Me Additional history obtained from chart Differentials:Reactive airway disease, pneumonia, pneumothorax, COPD, CHF, infections, cardiac ischemia, pulmonary embolism, musculoskeletal, gastrointestinal, as well as other pathologies. Vital Signs: reviewed and remarkable for tachy, hypoxic, tachypneic, febrile Interventions: saline lock, nss bolus 2 L IV, tylenol 1gm PO, zosyn 4.5gm IV, vanco 2gm IV, solumedrol 125mg IV, duoneb 1 hr Labs:Reviewed and remarkable for +WBC Imaging:X ray results are stated below per my interpretation: Chest: 1 view: White out left lung field without shift, right lung clear, acutely worse from previous. likely small effusion left as well. EKG:Per My Interpretation: Indication Sepsis: Sinus Tach 132 bpm, qtc 438. No Ectopy. No Ischemia. Compared to EKG 01/09/20, no significant changes. Cardiac/Tele Monitoring: Cardiac Monitoring: An Order was placed for continuous cardiac monitoring. The monitor shows a rate of 120 with a normal sinus rhythm. Consults:Dr Vika Padron Hospitalist for further management Plan: Disposition:Hospitalization. Condition: Fair Blood pressure:Normal.No Referral necessary Prescriptions:none PDMP: n/a History of Present Illness:59 yr old male with PMH alcoholism, IV Drug abuse, COPD, Smoking, and recent hospitalization 2 months ago for sepsis secondary to parapneumonic effusion arrives for evaluation of acute shortness of breath. Patient feeling ill over the last week. Associated productive cough. Gradually worsening. Tonight too weak to stand or get to the bathroom. Notes increasing leg swelling, weakness, fevers, chills, nausea. Denies chest pain, syncope, headache, rash, neck stiffness, abdominal pain, back pain, urinary/bowel symptoms, nor other symptoms. Admits this is similar to how he felt last time he was admitted. EMS arrived to find him severely dyspneic on RA with O2 sats 70s. Vitals otherwise stable en route and sats coming up with NC O2. Pt notes any exertion makes worse, rest makes mildly better. Denies new/recent trauma other than rib injury 2 months ago prior to admission. No medications prior to arrival though did receive 500mL IV fluids by EMS. ROS: See above HPI for pertinent positives & negatives. A total of 10 systems reviewed and were otherwise negative. Past Medical History:alcoholism, IV Drug abuse, COPD Past Surgical History:None Family History:States none Social History:Lives alone, smokes 1-2 ppd, No recent drug use, admits etoh use Home Medications:Denies taking medications Allergies:Phenobarbital Vitals:Blood Pressure: 146/70, Pulse 132, RR 34, T 38.5C, O2 97% on 8L NC Physical Exam: GENERAL: Patient is severely unwell appearing and in severe distress. Dehydrated appearing EYES: No scleral icterus, unremarkable pupils. ENT: Mucous membranes dry, no nasal congestion. NECK: No masses appreciated, nomeningismus, trachea is midline. RESPIRATORY: Splinting, tachypneic, dyspneic, very tight lung sounds throughout unable to hear air movement. CARDIOVASCULAR: Tachycardic.No murmurs, rubs, gallops appreciated. GASTROINTESTINAL: Abdomen soft, non-tender, no peritonitis.Bowel sounds positive.No masses appreciated. BACK: No midline tenderness, no CVA tenderness EXTREMITIES: 3 + pitting edema bilateral lower leg. Normal motion all extremities, no cyanosis NEUROLOGIC: Alert and oriented, no acute motor or sensory deficits, no focal weakness, cranial nerves grossly intact. SKIN: No rash, no jaundice, no diaphoresis. PSYCH: Appropriate GCS: 15 ED Course: Times/Reassessments: Multiple, greatly improved post neb, HR improving and patient stabilizing Critical Care: I have personally spent 45 minutes of critical care time in the direct management of this patient. Acute Hypoxic respiratory failure with sepsis secondary to left lung pneumonia. This was a life/limb threatening event. This 45 minutes is in excess of all separately billable procedures. Chandrakant Gregg MD Past Med/Surg History Medical History (Updated 03/11/20 @ 06:38 by Cristhian Turner PA-C) Acute hypoxemic respiratory failure Alcoholism Asymmetric edema of both lower extremities IV drug abuse Left rib fracture Moderate protein-energy malnutrition No acute medical problems Parapneumonic effusion Pulmonary emphysema Tobacco abuse Surgical History No pertinent past surgical history Social History Smoking Status: Current every day smoker Cigarettes Per Day: 1-2 PPD; Hx Alcohol Use: No Hx Substance Use: No Preferred Language: Swedish Communication Ability: Effective Orthopedic Surgeon Required: No Beliefs That Will Affect Care: None Current Living Situation: Parent Other Information That Helps Us Care for You: No Feels Safe at Home: Yes Safety Concerns: Feels Safe At This Time Allergies Allergies Allergy/AdvReac Type Severity Reaction Status Date / Time phenobarbital Allergy Unknown Verified 03/11/20 03:06 Home Meds Home Medications Medication Instructions Recorded Confirmed No Known Home Medications 01/09/20 03/11/20 Results & Data (ED) Vital Signs Vital Signs - 24 hr 03/11/20 02:50 03/11/20 03:15 03/11/20 03:19 Temperature 38.5 C H Temperature Source Oral Pulse Rate 132 H 134 H Pulse Rate [Apical] 128 H Pulse Rate from SpO2 Sensor 135 H Respiratory Rate 34 H 26 H 30 H Respiratory Effort / Characteristics Spontaneous Accessory Muscle Use Labored Short of Breath Spontaneous Respiratory Depth Normal Respiratory Pattern Tachypnea Blood Pressure 146/70 H 126/80 Blood Pressure Mean 95 96 Pulse Oximetry 97 97 98 Oxygen Delivery Method Nasal Cannula Nasal Cannula Oxygen Flow Rate 8 7 Sepsis Recent Fever Within 48 Hours Yes Sepsis New/Unexplained Change in Mental Status No Sepsis Action Taken by Nursing Physician Notified 03/11/20 03:47 03/11/20 04:00 03/11/20 04:15 Temperature Temperature Source Pulse Rate 129 H 124 H 133 H Pulse Rate [Apical] Pulse Rate from SpO2 Sensor 130 H 125 H 132 H Respiratory Rate 30 H 31 H 41 H Respiratory Effort / Characteristics Respiratory Depth Respiratory Pattern Blood Pressure 136/67 146/65 H 107/80 Blood Pressure Mean 98 96 86 Pulse Oximetry 95 97 97 Oxygen Delivery Method Nebulizer Oxygen Flow Rate Sepsis Recent Fever Within 48 Hours Sepsis New/Unexplained Change in Mental Status Sepsis Action Taken by Nursing Laboratory Data Result diagrams: 03/11/20 02:14 03/11/20 02:14 Lab Results 03/11/20 03/11/20 03/11/20 Range/Units 02:14 02:14 02:14 WBC 27.69 H (4.8-10.8) K/uL RBC 3.96 L (4.7-6.1) M/uL Hgb 11.1 L (14.0-18.0) g/dL Hct 32.8 L (42-52) % MCV 82.8 (80-100) fL MCH 28.0 (25-34) pg MCHC 33.8 (32-36) g/dL RDW Std Deviation 50.9 H (36.4-46.3) fL RDW Coeff of Stevenson 16.7 H (11.5-14.5) % Plt Count 599 H (130-400) K/uL MPV 7.9 (7.4-10.4) fL Immature Gran % (Auto) 0.4 % Neut % (Auto) 86.0 % Lymph % (Auto) 4.5 % [place] % (Auto) 9.0 % Eos % (Auto) 0.0 % Baso % (Auto) 0.1 % Neut # (Auto) 23.80 H (1.4-6.5) K/uL Lymph # (Auto) 1.25 (1.2-3.4) K/uL [place] # (Auto) 2.50 H (0.11-0.59) K/uL Eos # (Auto) 0.00 (0-0.5) K/uL Baso # (Auto) 0.02 (0-0.2) K/uL Immature Gran # (Auto) 0.12 H (0.00-0.02) K/uL Polychromasia 1+ PT 13.4 H (9.0-12.0) Seconds INR 1.3 H (0.9-1.1) VBG pH (7.36-7.41) VBG pCO2 (38-50) mmHg VBG pO2 mmHg VBG HCO3 mmol/L VBG O2 Saturation % VBG Base Excess mEq/L Sodium (136-145) mmol/L Potassium (3.5-5.1) mmol/L Chloride (98-107) mmol/L Carbon Dioxide (21-32) mmol/L Anion Gap (3-11) BUN (7-18) mg/dl Creatinine (0.6-1.4) mg/dl Est Cr Clr Drug Dosing Est GFR ( Amer) Est GFR (Non-Af Amer) BUN/Creatinine Ratio (10-20) Glucose (70-99) mg/dl Lactate (0.4-2.0) mmol/L Calcium (8.5-10.1) mg/dl Magnesium (1.8-2.4) mg/dl Total Bilirubin (0.2-1) mg/dl Direct Bilirubin (0-0.2) mg/dl AST (15-37) U/L ALT (12-78) U/L Alkaline Phosphatase (45-117) U/L Troponin I (0-0.045) ng/ml NT-Pro-B Natriuret Pep (0-900) pg/ml Total Protein (6.4-8.2) gm/dl Albumin (3.4-5.0) gm/dl Lipase (73-393) U/L Procalcitonin 0.35 (0-0.5) ng/ml Ethyl Alcohol mg/dL (0-3) mg/dl COVID-19 Eval Order COVID-19 PCR (Negative) 03/11/20 03/11/20 03/11/20 Range/Units 02:14 03:07 03:07 WBC (4.8-10.8) K/uL RBC (4.7-6.1) M/uL Hgb (14.0-18.0) g/dL Hct (42-52) % MCV (80-100) fL MCH (25-34) pg MCHC (32-36) g/dL RDW Std Deviation (36.4-46.3) fL RDW Coeff of Stevenson (11.5-14.5) % Plt Count (130-400) K/uL MPV (7.4-10.4) fL Immature Gran % (Auto) % Neut % (Auto) % Lymph % (Auto) % St. Clair % (Auto) % Eos % (Auto) % Baso % (Auto) % Neut # (Auto) (1.4-6.5) K/uL Lymph # (Auto) (1.2-3.4) K/uL [place] Clair # (Auto) (0.11-0.59) K/uL Eos # (Auto) (0-0.5) K/uL Baso # (Auto) (0-0.2) K/uL Immature Gran # (Auto) (0.00-0.02) K/uL Polychromasia PT (9.0-12.0) Seconds INR (0.9-1.1) VBG pH (7.36-7.41) VBG pCO2 (38-50) mmHg VBG pO2 mmHg VBG HCO3 mmol/L VBG O2 Saturation % VBG Base Excess mEq/L Sodium 133 L (136-145) mmol/L Potassium 4.1 (3.5-5.1) mmol/L Chloride 98 (98-107) mmol/L Carbon Dioxide 29 (21-32) mmol/L Anion Gap 6.0 (3-11) BUN 12 (7-18) mg/dl Creatinine 0.81 (0.6-1.4) mg/dl Est Cr Clr Drug Dosing Not Reportable Est GFR ( Amer) 112.0 Est GFR (Non-Af Amer) 96.6 BUN/Creatinine Ratio 14.8 (10-20) Glucose 94 (70-99) mg/dl Lactate (0.4-2.0) mmol/L Calcium 8.9 (8.5-10.1) mg/dl Magnesium 2.3 (1.8-2.4) mg/dl Total Bilirubin 0.3 (0.2-1) mg/dl Direct Bilirubin < 0.1 (0-0.2) mg/dl AST 10 L (15-37) U/L ALT 8 L (12-78) U/L Alkaline Phosphatase 113 (45-117) U/L Troponin I < 0.015 (0-0.045) ng/ml NT-Pro-B Natriuret Pep 1510 H (0-900) pg/ml Total Protein 7.7 (6.4-8.2) gm/dl Albumin 1.9 L (3.4-5.0) gm/dl Lipase 61 L (73-393) U/L Procalcitonin (0-0.5) ng/ml Ethyl Alcohol mg/dL (0-3) mg/dl COVID-19 Eval Order Covid19 Done at [facility] COVID-19 PCR NEGATIVE (Negative) 03/11/20 03/11/20 03/11/20 Range/Units 03:42 03:42 03:42 WBC (4.8-10.8) K/uL RBC (4.7-6.1) M/uL Hgb (14.0-18.0) g/dL Hct (42-52) % MCV (80-100) fL MCH (25-34) pg MCHC (32-36) g/dL RDW Std Deviation (36.4-46.3) fL RDW Coeff of Stevenson (11.5-14.5) % Plt Count (130-400) K/uL MPV (7.4-10.4) fL Immature Gran % (Auto) % Neut % (Auto) % Lymph % (Auto) % St[place] Cl[place] % (Auto) % Eos % (Auto) % Baso % (Auto) % Neut # (Auto) (1.4-6.5) K/uL Lymph # (Auto) (1.2-3.4) K/uL [place] Cl[place] # (Auto) (0.11-0.59) K/uL Eos # (Auto) (0-0.5) K/uL Baso # (Auto) (0-0.2) K/uL Immature Gran # (Auto) (0.00-0.02) K/uL Polychromasia PT (9.0-12.0) Seconds INR (0.9-1.1) VBG pH 7.41 (7.36-7.41) VBG pCO2 45 (38-50) mmHg VBG pO2 108 mmHg VBG HCO3 28 mmol/L VBG O2 Saturation 97.6 % VBG Base Excess 2.5 mEq/L Sodium (136-145) mmol/L Potassium (3.5-5.1) mmol/L Chloride (98-107) mmol/L Carbon Dioxide (21-32) mmol/L Anion Gap (3-11) BUN (7-18) mg/dl Creatinine (0.6-1.4) mg/dl Est Cr Clr Drug Dosing Est GFR ( Amer) Est GFR (Non-Af Amer) BUN/Creatinine Ratio (10-20) Glucose (70-99) mg/dl Lactate 0.6 (0.4-2.0) mmol/L Calcium (8.5-10.1) mg/dl Magnesium (1.8-2.4) mg/dl Total Bilirubin (0.2-1) mg/dl Direct Bilirubin (0-0.2) mg/dl AST (15-37) U/L ALT (12-78) U/L Alkaline Phosphatase (45-117) U/L Troponin I (0-0.045) ng/ml NT-Pro-B Natriuret Pep (0-900) pg/ml Total Protein (6.4-8.2) gm/dl Albumin (3.4-5.0) gm/dl Lipase (73-393) U/L Procalcitonin (0-0.5) ng/ml Ethyl Alcohol mg/dL < 3.0 (0-3) mg/dl COVID-19 Eval Order COVID-19 PCR (Negative) Administered Medications Discontinued Medications Acetaminophen (Acetaminophen 500 Mg Tab) 1,000 mg PO NOW STA Stop: 03/11/20 03:31 Last Admin: 03/11/20 03:48 Dose: 1,000 mg Documented by: [id number] Albuterol (Albut/Ipratrop 3mg/0.5mg Neb 3 Ml Vial) 12 ml NEB ONE ONE Stop: 03/11/20 02:53 Last Admin: 03/11/20 03:16 Dose: 12 ml Documented by: [id number] Piperacillin Sod/Tazobactam Sod (Zosyn) 4.5 gm in 120 mls @ 240 mls/hr IV NOW ONE Stop: 03/11/20 03:45 Last Infusion: 03/11/20 04:33 Dose: 0 mls/hr Documented by: [id number] Admin: 03/11/20 03:48 Dose: 240 mls/hr Documented by: [id number] Vancomycin HCl 2,000 mg/ (Sodium Chloride) 540 mls @ 200 mls/hr IV NOW ONE Stop: 03/11/20 05:45 Last Admin: 03/11/20 03:48 Dose: 200 mls/hr Documented by: [id number] Sodium Chloride (Nss 1000ml) 1,000 mls @ 999 mls/hr IV .Q1H1M ONE Stop: 03/11/20 04:19 Last Infusion: 03/11/20 04:51 Dose: 0 mls/hr Documented by: [id number] Admin: 03/11/20 03:48 Dose: 999 mls/hr Documented by: [id number] Sodium Chloride (Nss 1000ml) 1,000 mls @ 999 mls/hr IV .Q1H1M ONE Stop: 03/11/20 04:30 Last Infusion: 03/11/20 06:19 Dose: 0 mls/hr Documented by: [id number] Admin: 03/11/20 03:48 Dose: 999 mls/hr Documented by: [id number] Methylprednisolone (Methylprednisolone 125 Mg/2 Ml Vial) 125 mg IV NOW STA Stop: 03/11/20 02:53 Last Admin: 03/11/20 03:00 Dose: 125 mg Documented by: [id number] Discharge Plan Visit Data Chief Complaint: Respiratory Problems Stated Complaint: RESPIRATORY PROBLEMS ED Provider: Chandrakant Gregg Discharge Problem: Acute respiratory failure with hypoxia, Sepsis, Left upper lobe pneumonia, Leukocytosis, COPD with acute exacerbation Patient Disposition: Admitted As Inpatient Discharge Instructions Interventions: ED Discharge Assessment Last Done: 03/11/20 05:45 Discharge Problem: Sepsis Qualifiers: Sepsis type: sepsis due to unspecified organism Sepsis acute organ dysfunction status: with acute organ dysfunction Severe sepsis acute organ dysfunction type: acute respiratory failure Acute respiratory failure type: with hypoxia Severe sepsis shock status: without septic shock Qualified Code(s): A41.9 - Sepsis, unspecified organism Left upper lobe pneumonia Qualifiers: Pneumonia type: due to unspecified organism Qualified Code(s): J18.9 - Pneumonia, unspecified organism Leukocytosis Qualifiers: Leukocytosis type: unspecified Qualified Code(s): D72.829 - Elevated white blood cell count, unspecified
[2020-03-11 03:15] LABS: INR 1.3 (0.9-1.1); Prothrombin Time 13.4 Seconds (9.0-12.0)
[2020-03-11] MEDS ORDERED: VANCOMYCIN HCL 2,000 MG in SODIUM CHLORIDE 0.9% 500 ML IV ONE (03:16)
[2020-03-11] MEDS ORDERED: VANCOMYCIN CONSULT ACTIVE PRN (03:16)
[2020-03-11] MEDS ORDERED: PIPERACILLIN/TAZOBACTAM 4.5 GM/120 ML BAG IV ONE (03:16)
[2020-03-11] MEDS ORDERED: PIPERACILL/TAZOBAC CONSULT ACTIVE PRN (03:16)
[2020-03-11 03:19] LABS: Alanine Aminotransferase 8 U/L (12-78); Albumin Level 1.9 gm/dl (3.4-5.0); Aspartate Aminotransferase 10 U/L (15-37); BUN Creatinine Ratio 14.8 (10-20); Blood Urea Nitrogen 12 mg/dl (7-18); Calcium 8.9 mg/dl (8.5-10.1); Carbon Dioxide 29 mmol/L (21-32); Chloride 98 mmol/L (98-107); Est GFR (Non-African American) 96.6; Glucose 94 mg/dl (70-99); Lipase 61 U/L (73-393); Magnesium 2.3 mg/dl (1.8-2.4); Potassium 4.1 mmol/L (3.5-5.1); Sodium 133 mmol/L (136-145)
[2020-03-11] MEDS ORDERED: SODIUM CHLORIDE 0.9% 1000ML 1,000 ML IV ONE ×2 (03:19→03:30)
[2020-03-11 03:22] LABS: Basophils # (auto) 0.02 K/uL (0-0.2); Basophils % (auto) 0.1 %; Immature Granulocytes # (auto) 0.12 K/uL (0.00-0.02); Immature Granulocytes % (auto) 0.4 %; Lymphocytes # (auto) 1.25 K/uL (1.2-3.4); Lymphocytes % (auto) 4.5 %; Polychromasia 1+
[2020-03-11 03:25] LABS: Alkaline Phosphatase 113 U/L (45-117); Bilirubin Direct < 0.1 mg/dl (0-0.2); Bilirubin,Total 0.3 mg/dl (0.2-1); NT Pro B Type Natriuretic Pept 1510 pg/ml (0-900); Total Protein 7.7 gm/dl (6.4-8.2); Troponin I < 0.015 ng/ml (0-0.045)
[2020-03-11] MEDS ORDERED: ACETAMINOPHEN 500 MG TAB PO STA (03:30)
[2020-03-11 04:00] LABS: Base Excess VBG 2.5 mEq/L; HCO3 VBG 28 mmol/L; Oxygen Saturation VBG 97.6 %; PCO2 VBG 45 mmHg (38-50); PO2 VBG 108 mmHg; pH VBG 7.41 (7.36-7.41)
--- NOTE | 2020-03-11 06:22 | History and Physical Report ---
DATE OF ADMISSION: 03/11/2020 CHIEF COMPLAINT: Shortness of breath, respiratory distress. HISTORY OF PRESENT ILLNESS: A 59-year-old male with past medical history significant for COPD, history of IV drug abuse, ongoing tobacco abuse, history of alcoholism. He is originally from [place]. He is currently residing with his parents. He comes with shortness of breath. The patient was here in December. At that time, the patient had injury to his left chest and he was also treated for parapneumonic effusion. He was status post pigtail catheter placement at that time and pleural fluid grew Haemophilus influenzae beta lactamase negative, and he also had left rib fracture at that time. He has also had NSAID gastritis at that time. He was discharged home to complete the antibiotic course with Augmentin and inhalers, Protonix, and vitamins. [facility] but he says he never followed up and he is also supposed to follow with pulmonary, but seems to have not followed up. Since he got discharged, he was still not feeling well, has some good days and bad days, but lately his shortness of breath got worse and today he was tachypneic, he could not breathe, and he was also having cough with yellowish phlegm. Did not have any fever at home. When the EMS arrived, he was saturating only 70%. He was given nebs. He was brought in here. Currently saturating on 6 liters in mid 90s. Able to speak. Received Solu-Medrol and albuterol. Antibiotics, vancomycin and Zosyn in the ER. His white count was 27,000. Lactate was okay at 0.6 and COVID-19 PCR is negative. Alcohol level is less than 3. Procalcitonin 0.35. Chest x-ray showed his whole left lung is white out. He is tachycardic. The patient denies any headache. No blurred visions, no earache, no runny nose, no sore throat, no loss of sense of smell or taste. Has some chest pain with coughing. No nausea, no vomiting, no abdominal pain. He says he is somewhat constipated. Denies any blood in the stool or black stools. Normal bladder movements. No burning micturition. He has swelling of the legs which he says it is there for a long time. He ambulates without any support. He says appetite is okay. ALLERGIES: PHENOBARBITAL. PAST MEDICAL HISTORY: As mentioned above. PAST SURGICAL HISTORY: Tonsillectomy, circumcision. MEDICATIONS: Seems to be not taking any medications. FAMILY HISTORY: Significant for heart disease. SOCIAL HISTORY: He did smoke 1 pack a day for 40 years, but lately is smoking half pack a day. He has a history of alcoholism, but states he only drank 3 cans of beer since July. History of IV drug abuse as per records. REVIEW OF SYSTEMS: As per HPI. Rest of the review of systems negative. PHYSICAL EXAMINATION: GENERAL: The patient is of moderate build, not in acute distress, somewhat in respiratory distress. VITAL SIGNS: Temperature 38.5, pulse 118, respiratory rate 29, blood pressure 115/54, oxygen 93% on 6 liters OxyMask. HEENT: Head atraumatic. Pupils equal, round, and reactive to light. NECK: No JVD seen. Supple. CARDIOVASCULAR: S1, S2 heard. Tachycardia. No murmurs. RESPIRATORY SYSTEM: Normal AP diameter. No accessory muscle use. Bilateral diminished breath sounds, more on the left side with occasional wheezing. ABDOMEN: Soft, bowel sounds present, nontender. No distention. CENTRAL NERVOUS SYSTEM: Alert and oriented. Speech is clear. Obeys commands. Moves extremities. EXTREMITIES: Bilateral lower extremity gross edema present, no erythema seen. LABORATORY DATA: WBC 27, hemoglobin 11.1, hematocrit 32.8, platelets 599. PT 13.4, INR 1.3. Venous blood gas, pH of 7.4, pCO2 of 45, pO2 of 108, bicarbonate 28. Sodium 133, potassium 4.1, chloride 98, bicarbonate 29, BUN 12, creatinine 0.8, serum glucose 94, lactate 0.6, calcium 8.9, magnesium 2.3, total bilirubin 0.3, direct bilirubin less than 0.1, AST 10, ALT 8, alkaline phosphatase 113. Troponin I less than 0.015. BNP 1510. Procalcitonin 0.3, ethyl alcohol less than 3. COVID-19 PCR negative. IMAGING DATA: Chest x-ray, white out of the whole left side of the lung. EKG: Sinus tachycardia with rate of 132. No significant change. ASSESSMENT AND PLAN: This is a 59-year-old male who presents with respiratory distress. 1. Respiratory distress, chronic obstructive pulmonary disease exacerbation, pneumonia. Whole left side of the lung is white out. History of parapneumonic effusions, left side in December. At that time, status post pigtail catheter and pleural fluids grew Haemophilus influenzae. He was also somewhat tachypneic when he came in and tachycardic and temperature spike. Sepsis, meets criteria for sepsis with tachycardia, temperature spike and elevated white count and pneumonia. Lactic acid is normal at 0.6. Received vancomycin and Zosyn in the ER which will continue. We will also add p.o. doxycycline. Follow the cultures. Admit in the ICU for closely monitor. Critical care consult for possible chest tube placement versus bronchoscopy. Will also get CT of the chest to get a better picture. 2. Tobacco abuse, needs counseling. 3. History of alcoholism. Alcohol level 3. He says he drank only 3 cans since July. We will place him on p.o. thiamine and p.o. multivitamin and we will monitor for any withdrawal signs. 4. History of Nsaid gastritis. Currently not taking any medications. His hemoglobin is stable. We will empirically place him on Protonix. 5. Lower extremity edema. Says this is chronic. Echo was okay in the last admission. We will repeat the echo. Could be from his malnutrition, alcoholism. We will also do a lower extremity Doppler to rule out deep venous thrombosis. Getting gentle fluids and antibiotics. Monitor for any volume overload. 6. Tobacco abuse. Needs counselling. 7. Deep venous thrombosis prophylaxis, sequential compression devices for now. 8. Disposition: Closely monitor in the ICU. Level 1 full code as per my discussion with the patient. MTDD
[2020-03-11] MEDS ORDERED: XOPENEX/ATROVENT 1.25mg/0.5MG NEB COMBO NEB PRN (06:30)
[2020-03-11] MEDS ORDERED: ICU PROTOCOL FOR HYPERGLYCEMIA PRN (06:30)
[2020-03-11] MEDS ORDERED: SODIUM CHLORIDE 0.9% 1000ML 1,000 ML IV SCH (06:30)
[2020-03-11] MEDS ORDERED: LORazepam 1 MG TAB PO PRN (06:46)
[2020-03-11] MEDS ORDERED: ALBUT/IPRATROP 3MG/0.5MG NEB 3 ML VIAL NEB PRN (06:46)
--- NOTE | 2020-03-11 06:46 | Critical Care Consultation ---
Date of Consultation March 11, 2020 Assessment & Plan (1) Admitted to intensive care unit: Reason Critically Ill: 59-year-old male with acute hypoxic respiratory distress in the setting of LEFT upper lobe pneumonia with sepsis requiring close hemodynamic monitoring. NEURO - * CAM ICU: NEGATIVE * EtOH Abuse: * AWSS protocol in place. * No issues during recent admission. CARDIAC/VASCULAR - * Tachycardia: * Compensatory in the setting of sepsis and fever. Seems to be improving with antipyretics and IV fluids. * EKG: Sinus tachycardia@132bpm. No ST/T-wave changes. QTc 438 ms. * Monitor on telemetry. RESPIRATORY - * Acute Hypoxic Respiratory Distress: * In the setting of impressive ALEC Pneumonia. * Concerning w/ recent h/o Empyema of the same pleura. * Received Vanc/Zosyn in the ED. * Will likely be able to d/c Vanc pending MRSA swab. * Supplemental O2 PRN. * Will add Flutter Valve. * Will order IS. * May warrant bronch this admission. Will keep NPO. * Does not appear to have a large effusion currently. GI/NUTRITION - * NPO RENAL/LYTES - * No significant electrolyte derangements. - * Cody in place - Strict I&Os. ENDO - * No h/o DM or Thyroid Dz * BSGs per unit protocol. ISS --> gtt per unit policy. HEME - * Stable H&H. * Profound Leukocytosis - likely 2/2 sepsis from pulmonary source. ID - * Sepsis: * From pulmonary source. * Continue IV Zosyn as he did well with this during recent hospitalization. * d/c Vanc pending MRSA swab. * Lactate/PCT not elevated. LINES/IV ACCESS - * PIVs x2 * Cody DVT PROPHYLAXIS - * Heparin * SCDs Thank you for allowing us to participate in the care of this patient. Please refer to my attending physician's documentation for any further recommendations. (2) Sepsis: (3) Left upper lobe pneumonia: (4) Respiratory distress: (5) Acute hypoxemic respiratory failure: (6) Leukocytosis: (7) Tobacco abuse: (8) Alcoholism: Supervising Physician Co-Signing Physician Notes Patient seen and examined. Discussed with critical care ULICES and with family practice resident. Agree with assessment and plan as noted by critical care ULICES. 59-year-old male admitted 2 months ago with empyema and pneumonia. He was supposed to be discharged on a prolonged course of antibiotics however due to social constraints the patient was unable to take any antibiotics and return to the emergency room with undertreated/progressive pneumonia. CT scan demonstrates no significant pleural effusion. He does have significant lower extremity edema. This is a new finding for him. Recommend continuing antibiotics. We will continue Zosyn and vancomycin for now. Awaiting sputum culture as well as blood cultures. Interestingly, procalcitonin is not markedly elevated however significant leukocytosis. Wean oxygen as tolerated. Could consider steroids for advanced/complicated pneumonia however given the patient's clinical improvement will hold off for now. Will initiate inhaled bronchodilators given his significant COPD. Smoking cessation and alcohol abstinence discussed with the patient. No indication for bronchoscopy currently so we will advance diet. Okay to transfer out of the ICU to floor status. We will continue to follow for pulmonary issues. History of Present Illness History of Present Illness Patient is a 59-year-old male with a significant past medical history of alcoholism and tobacco abuse who was recently admitted in this facility on 01/09 with a large parapneumonic effusion. The patient had pigtail catheter placed and underwent MIST2 protocol. Chest tube was removed after few days. He received IV Zosyn around this facility. The patient grew out Haemophilus influenza and strep intermedius. Per the patient, he reports that he did pressure the staff to have himself discharged. [facility]. He reports that since his discharge he has had persistent shortness of breath and general fatigue. Over the last few days, he has had increasing shortness of breath with worsening productive cough. He does report some small amounts of bloody sputum with his cough recently. He states that he has not noticed a fever despite presenting febrile. He denies any recent exposures to COVID-19 infected individuals. He reports no recent long distance travel. Patient has reported significant decrease in physical a ctivity secondary to shortness of breath. While in the emergency department, the patient presented tachycardic with borderline blood pressures. He was hypoxic requiring supplemental oxygen in the form of 6 L oxygen mask. Chest x-ray concerning for near whiteout of the LEFT- sided lung. He was noted to have a market leukocytosis. No significant electrolyte derangements. He was treated with IV vancomycin and Zosyn. Upon evaluation in the ICU, the patient is awake, alert, and oriented. He describes generalized fatigue and ongoing shortness of breath. He reports shortness of breath worsened this evening which prompted his father to call EMS. He reports pain which is been persistent to the LEFT upper chest. He reports pain is worse with cough. He denies any headaches, dizziness, lightheadedness, palpitations, nausea, vomiting, abdominal pain, or diarrhea. Allergies Allergy/AdvReac Type Severity Reaction Status Date / Time phenobarbital Allergy Unknown Verified 03/11/20 03:06 Home Medications Home Medications Medication Instructions Recorded Confirmed Type No Known Home Medications 01/09/20 03/11/20 History Patient History Medical History Acute hypoxemic respiratory failure Alcoholism Asymmetric edema of both lower extremities IV drug abuse Left rib fracture Moderate protein-energy malnutrition No acute medical problems Parapneumonic effusion Pulmonary emphysema Tobacco abuse Surgical History No pertinent past surgical history Social History Smoking Status: Current every day smoker Cigarettes Per Day: 1-2 PPD; Hx Alcohol Use: No Hx Substance Use: No Preferred Language: Hebrew Communication Ability: Effective Flute Polisher Required: No Beliefs That Will Affect Care: None Current Living Situation: Parent Other Information That Helps Us Care for You: No Feels Safe at Home: Yes Safety Concerns: Feels Safe At This Time Review of Systems Review of Systems: A complete 10 point review of systems was reviewed with the patient with pertinent positives and negatives as per history of present illness. All else were negative. Physical Exam Physical Exam: VITAL SIGNS - Vital signs and nursing notes were reviewed. GENERAL - 59-year-old male appearing his stated age who is in no acute distress. Communicates well with provider and answers questions appropriately. SKIN - Without rashes. HEAD - NC/AT. EYES - PERRL with EOMI bilaterally. Sclera anicteric. Palpebral conjunctiva pink and moist with no injection noted. EARS - No deformities of external structures noted on gross examination bilaterally. NOSE - Midline and without cyanosis. No epistaxis or purulent drainage noted. MOUTH/OROPHARYNX - Without perioral cyanosis. Buccal mucosa pink and moist and without leukoplakia. Tongue midline with equal elevation of palate bilaterally. No tonsillar hypertrophy, erythema, or exudates noted. NECK - Neck with FROM. Supple to palpation. No lymphadenopathy noted. No nuchal rigidity. LUNGS - Chest wall symmetric without accessory muscle use, intercostals retractions, or central cyanosis. Tachypneic. Coarse breath sounds with rales noted to the LEFT-sided lung field. Inspiratory wheezes appreciated as well. Clear breath sounds to the RIGHT sided lung bogres. CARDIAC - RRR with S1/S2. No murmur, rubs, or gallops appreciated. ABDOMEN - Abdominal contour flat without pulsations or visible masses. BS normoactive all four quadrants. No tenderness, palpable masses, hepatosplenomegaly, or ascites noted. EXTREMITIES - No clubbing or peripheral cyanosis. Moderate pretibial edema present bilaterally. +3/5 radial and dorsalis pedis pulses palpated throughout. +5/5 strength noted in UE/LE bilaterally. NEUROLOGIC - Cranial nerves II through XII grossly intact. Sensory intact to light touch throughout. PSYCH - A&Ox3 and cooperates fully with examiner. Pt is very pleasant and interacts well with examiner. Results & Data Results & Data ([facility]) Vital Signs (Past 12 Hours) Vital Signs Temp Pulse Pulse Resp BP BP Pulse Ox 03/11/20 05:45 111 H 28 H 116/64 93 03/11/20 05:38 37.6 C H 03/11/20 05:00 118 H 29 H 115/54 L 93 03/11/20 04:15 133 H 41 H 107/80 97 03/11/20 04:00 124 H 31 H 146/65 H 97 03/11/20 03:47 129 H 30 H 136/67 95 03/11/20 03:19 128 H 30 H 98 03/11/20 03:15 134 H 26 H 126/80 97 03/11/20 02:50 38.5 C H 132 H 34 H 146/70 H 97 Coding Level of Care Code 95453 Inpt Consult Level 5 Diagnoses Admitted to intensive care unit Z78.9 Sepsis A41.9; R65.20; J96.01 Acute respiratory failure type: with hypoxia Sepsis acute organ dysfunction status: with acute organ dysfunction Sepsis type: sepsis due to unspecified organism Severe sepsis acute organ dysfunction type: acute respiratory failure Severe sepsis shock status: without septic shock Left upper lobe pneumonia J18.9 Pneumonia type: due to unspecified organism Respiratory distress R06.03 Acute hypoxemic respiratory failure J96.01 Leukocytosis D72.829 Leukocytosis type: unspecified Tobacco abuse Z72.0 Alcoholism F10.20 Time Spent (min) 35 (1) Leukocytosis Leukocytosis type: unspecified Qualified Code(s): D72.829 - Elevated white blood cell count, unspecified (2) Sepsis Acute respiratory failure type: with hypoxia Sepsis acute organ dysfunction status: with acute organ dysfunction Sepsis type: sepsis due to unspecified organism Severe sepsis acute organ dysfunction type: acute respiratory failure Severe sepsis shock status: without septic shock Qualified Code(s): A41.9 - Sepsis, unspecified organism; R65.20 - Severe sepsis without septic shock; J9 6.01 - Acute respiratory failure with hypoxia (3) Left upper lobe pneumonia Pneumonia type: due to unspecified organism Qualified Code(s): J18.9 - Pneumonia, unspecified organism
[2020-03-11 06:59] LABS: Appearance Urine Cloudy (Clear); Bacteria Urine Automated Negative (Negative); Bilirubin Urine Negative (Negative); Blood Urine 2+ (Negative); Color Urine Yellow; Glucose Urine UA Negative (Negative); Ketones Urine Negative (Negative); Leukocyte Esterase Urine Negative (Negative); Nitrite Urine Negative (Negative); Protein Urine Trace (Negative); RBC Urine Automated 0-4 /hpf (0-4); Specific Gravity Urine 1.017 (1.000-1.030); Urobilinogen Urine Negative (Negative); pH Urine 5.5 (4.5-7.5)
[2020-03-11] MEDS ORDERED: XOPENEX/ATROVENT 1.25mg/0.5MG NEB COMBO NEB SCH (07:00)
[2020-03-11] MEDS ORDERED: LEVALBUTEROL 1.25MG/0.5ML NEB INH SCH (07:00)
[2020-03-11] MEDS ORDERED: LEVALBUTEROL 1.25MG/0.5ML NEB INH PRN (07:00)
[2020-03-11] MEDS ORDERED: IPRATROPIUM BROMIDE NEB SOLN 0.02% 2.5 ML VIAL INH PRN (07:00)
[2020-03-11] MEDS ORDERED: IPRATROPIUM BROMIDE NEB SOLN 0.02% 2.5 ML VIAL INH SCH (07:00)
--- NOTE | 2020-03-11 07:58 | XRay Report ---
XR chest 1V portable CLINICAL HISTORY: Shortness of breath. COMPARISON STUDY: Chest radiograph January 14, 2020. Chest CT 01/12/2020. FINDINGS: Interval development of extensive left lung airspace opacity is noted. There is no pneumoth orax. A small left pleural effusion is noted. Right lung is unremarkable. There is no evidence for pu lmonary edema. There is underlying emphysema. IMPRESSION: 1. Interval development of extensive left lung airspace opacity suggestive of pneumonia. 2. Emphysema. 3. Small left pleural effusion. ACT 112: Negative or not required by law. Electronically signed by: Alexander Chawla M.D. 03/11/2020 7:57 AM
--- NOTE | 2020-03-11 08:13 | CT Scan Report ---
CT OF THE CHEST WITHOUT IV CONTRAST CLINICAL HISTORY: pleural effusion? infiltrates left lung. COMPARISON STUDY: Chest CT January 12, 2020. Chest radiograph performed earlier today. CT DOSE: 383.97 mGy.cm TECHNIQUE: Axial images of the chest were obtained without IV contrast. Images were reviewed in the axial, sagittal, and coronal planes. IV contrast was not administered for this examination. Automat ed exposure control was utilized for the study. A dose lowering technique was utilized adhering to t he principles of ALARA. FINDINGS: There is no pneumothorax. A small left pleural effusion is noted. There has been interval development of extensive left upper lobe consolidation since CT of January 12, 2020. Additional airspace opacity within the left lower lobe is noted. There is no cavitation. Severe underlying emphysema is present. The central airways are patent. Several mildly enlarged mediastinal lymph nodes are noted, i ncluding a prevascular node on image 145 of 311 measures 1.5 cm in short axis diameter. Bony thorax i s unremarkable. Visualized portions of the upper abdomen are unremarkable. IMPRESSION: 1. Interval development of extensive left upper lobe consolidation since CT of January 12, 2020. Additio nal left lower lobe airspace opacities. The findings represent multifocal pneumonia. Small left pleur al effusion. 2. Several mildly enlarged mediastinal lymph nodes which are likely reactive. 3. Severe emphysema. ACT 112: Negative or not required by law. Electronically signed by: Alexander Chawla M.D. 03/11/2020 8:11 AM
[2020-03-11] MEDS: PIPERACILLIN/TAZOBACTAM 4.5 GM in DEXTROSE 5% 100 ML IV SCH ×2 (08:19→16:14)
[2020-03-11] MEDS ORDERED: methylPREDNISolone 40 MG in SYRINGE 0 ML IV SCH (09:00)
[2020-03-11] MEDS ORDERED: DOXYCYCLINE HYCLATE 100 MG CAP PO SCH (09:00)
[2020-03-11] MEDS ORDERED: FUROSEMIDE 20 MG in SYRINGE 0 ML IV ONE (09:15)
[2020-03-11] MEDS: THIAMINE HCL 100 MG in SYRINGE 9 ML IV SCH (10:18)
[2020-03-11] MEDS: CEROVITE ADV FORMULA TAB PO SCH (10:18)
[2020-03-11] MEDS: PANTOprazole 40 MG TAB PO SCH (10:18)
[2020-03-11] MEDS: FOLIC ACID 1 MG in SYRINGE 9.8 ML IV SCH (10:18)
--- NOTE | 2020-03-11 10:25 | Electrocardiogram Report ---
Test Reason : Blood Pressure : / mmHG Vent. Rate : 132 BPM Atrial Rate : 132 BPM P-R Int : 148 ms QRS Dur : 090 ms QT Int : 296 ms P-R-T Axes : 077 060 071 degrees QTc Int : 438 ms Poor data quality, interpretation may be adversely affected Sinus tachycardia Otherwise normal ECG When compared with ECG of 09-JAN-2020 20:39, No significant change was found Confirmed by Isaac Dickinson ([id number]) on 03/11/2020 10:25:37 AM Referred By: REFERRED SELF Confirmed By:Isaac Dickinson
[2020-03-11 11:27] LABS: Partial Thromboplastin Ratio 1.2; Partial Thromboplastin Time 34.2 Seconds (21.0-31.0)
[2020-03-11] MEDS ORDERED: UMECLIDINIUM/VILANTEROL 62.5/25MCG 7 PUFFS/INHALER INH SCH (12:00)
--- NOTE | 2020-03-11 13:27 | Ultrasound Report ---
US venous doppler LE BI CLINICAL HISTORY: Bilateral lower extremity edema COMPARISON STUDY: December 2019 FINDINGS: Real-time and color flow Doppler imaging were performed. Flow was seen within the femoral, popliteal and calf veins with no intraluminal thrombus demonstrated. The saphenous vein is patent. IMPRESSION: No evidence of lower extremity DVT. ACT 112: Negative or not required by law. Electronically signed by: Mio Champagne M.D. 03/11/2020 1:26 PM
[2020-03-11] MEDS: HEPARIN SOD 5,000 UNIT/0.5 ML VIAL SQ SCH ×2 (14:20→22:20)
--- NOTE | 2020-03-11 14:32 | Hospitalist Progress Note ---
Date of Service March 11, 2020 Assessment & Plan (1) Acute respiratory failure with hypoxia: Admitted with acute respiratory failure secondary to multilobar pneumonia involving the left lung History of left lung empyema in December and failed to have prolonged course of antibiotic as was Advised Has been on intravenous Zosyn Doxycycline and vancomycin have been discontinued Appreciate alignment technician input and recommendation Clinically shows improvement (2) Left upper lobe pneumonia: As above Has multilobar pneumonia with almost involvement of whole of the left lung No significant effusion (3) Pulmonary emphysema: COPD with ongoing smoking Does not have any exacerbation at this time Discontinue Solu-Medrol (4) Tobacco abuse: Ongoing tobacco abuse Advised to quit smoking Smoke cessation History of alcohol abuse Has not been drinking for the last 2 years (5) IV drug abuse: History of IV drug abuse Lower extremity edema No evidence of DVT on scan DVT prophylaxis Subcu heparin Admission and Anticipated Discharge Date Admission Date: March 11, 2020 Subjective 03/11/2020 The patient was seen and examined in ICU He has been admitted with progressive pneumonia with acute respiratory failure He has been feeling a little bit better since admission Has shortness of breath at rest but denies any other significant symptoms Review of Systems Review of Systems: All systems reviewed and are unremarkable except as noted below Constitutional: + fatigue, + weakness and + anorexia Respiratory: + cough, + chest congestion and + dyspnea (At rest); no hemoptysis Physical Exam Physical Exam: Sitting at the edge of the bed with moderate shortness of breath Constitutional: well developed, well nourished, + acute distress (Shortness of breath) and + ill appearing Eyes: PERRL, conjunctivae normal, anicteric sclerae ENMT: external ear and nose normal, oropharynx normal Neck: trachea midline, no thyromegaly Respiratory: + respiratory distress and + uses accessory muscles Auscul tation: + diminished lung sounds (Almost complete loss of breath sounds in left lung) and + wheezes Occasional wheezing on the right side Cardiovascular: Rate/Rhythm: regular rate and regular rhythm Heart Sounds: no murmur Gastrointestinal (Abdomen): Inspection/Auscultation: abdomen normal to inspection and normal bowel sounds; abdomen not distended Percussion/Palpation: abdomen soft; abdomen nontender Musculoskeletal: No acute arthritis involving any joints Neurologic: moves all extremities; no focal motor deficits Alert, awake and oriented x3. Generally weak and lethargic Results & Data Results & Data ([place]) Vital Signs (Past 12 Hours) Vital Signs Temp Pulse Pulse Resp BP BP Pulse Ox 03/11/20 13:00 91 H 22 122/70 91 03/11/20 12:00 110 H 24 117/64 93 03/11/20 11:01 112 H 24 133/75 96 03/11/20 10:26 101 H 33 H 107/65 93 03/11/20 09:00 90 19 103/69 91 03/11/20 08:03 37.1 C 03/11/20 08:00 95 H 24 109/63 94 03/11/20 07:25 90 23 109/60 95 03/11/20 07:11 93 H 20 93 03/11/20 06:27 37.0 C 100 H 24 117/59 L 93 03/11/20 05:45 111 H 28 H 116/64 93 03/11/20 05:38 37.6 C H 03/11/20 05:00 118 H 29 H 115/54 L 93 03/11/20 04:15 133 H 41 H 107/80 97 03/11/20 04:00 124 H 31 H 146/65 H 97 03/11/20 03:47 129 H 30 H 136/67 95 03/11/20 03:19 128 H 30 H 98 03/11/20 03:15 134 H 26 H 126/80 97 03/11/20 02:50 38.5 C H 132 H 34 H 146/70 H 97 Laboratory Results Short CBC 03/11/20 Range/Units 02:14 WBC 27.69 H (4.8-10.8) K/uL Hgb 11.1 L (14.0-18.0) g/dL Hct 32.8 L (42-52) % Plt Count 599 H (130-400) K/uL BMP 03/11/20 02:14 Sodium 133 L Potassium 4.1 Chloride 98 Carbon Dioxide 29 BUN 12 Creatinine 0.81 Glucose 94 Calcium 8.9 Cardiac Enzymes 03/11/20 Range/Units 02:14 Troponin I < 0.015 (0-0.045) ng/ml Liver Function 03/11/20 Range/Units 02:14 Total Bilirubin 0.3 (0.2-1) mg/dl Direct Bilirubin < 0.1 (0-0.2) mg/dl AST 10 L (15-37) U/L ALT 8 L (12-78) U/L Alkaline Phosphatase 113 (45-117) U/L Albumin 1.9 L (3.4-5.0) gm/dl Urine 03/11/20 Range/Units 06:45 Urine Color Yellow Urine Appearance Cloudy A (Clear) Urine pH 5.5 (4.5-7.5) Ur Specific [place] 1.017 (1.000-1.030) Urine Protein Trace H (Negative) Urine Glucose (UA) Negative (Negative) Medications Administered Current Inpatient Medications Heparin Sodium (Porcine) (Heparin Sod 5,000 Unit/0.5 Ml Vial) 5,000 units SQ Q8 [facility] Stop: 04/10/20 13:59 Last Admin: 03/11/20 14:20 Dose: 5,000 units Documented by: Thiamine HCl 100 mg/ Syringe 10 mls @ 2 mls/min IV QAM [facility] Stop: 04/10/20 08:59 Last Admin: 03/11/20 10:18 Dose: 2 mls/min Documented by: Folic Acid 1 mg/ Syringe 10 mls @ 5 mls/min IV QAM [facility] Stop: 04/10/20 08:59 Last Admin: 03/11/20 10:18 Dose: 5 mls/min Documented by: Piperacillin Sod/Tazobactam (Sod 4.5 gm/ Dextrose) 120 mls @ 30 mls/hr IV Q8H [facility]; Protocol Stop: 03/18/20 07:59 Last Infusion: 03/11/20 12:29 Dose: Infused Documented by: Ipratropium [place] (Ipratropium [place] Neb Soln 0.02% 2.5 Ml Vial) 0.5 mg INH Q2R PRN PRN Reason: Shortness Of Breath Or Wheezing Stop: 04/10/20 06:59 Levalbuterol HCl (Levalbuterol 1.25mg/0.5ml Neb) 1.25 mg INH Q2R PRN PRN Reason: Shortness Of Breath Or Wheezing Stop: 04/10/20 06:59 Lorazepam (Lorazepam 1 Mg Tab) 1 mg PO ONE PRN; Protocol PRN Reason: EtoH Withdrawal AWSS 6-10 Miscellaneous (Icu Protocol For Hyperglycemia) 1 ea N/A PRN PRN; Protocol PRN Reason: Hyperglycemia Protocol Stop: 03/13/20 06:29 Miscellaneous Information (Piperacill/Tazobac Consult Active) 1 ea N/A UD PRN PRN Reason: Consult Stop: 04/10/20 03:15 Multivitamins/Minerals (Cerovite Adv Formula Tab) 1 tab PO DAILY@1100 [facility] Stop: 04/10/20 10:59 Last Admin: 03/11/20 10:18 Dose: 1 tab Documented by: Pantoprazole Sodium (Pantoprazole 40 Mg Tab) 40 mg PO DAILY [facility] Stop: 04/10/20 08:59 Last Admin: 03/11/20 10:18 Dose: 40 mg Documented by: Thiamine HCl (Thiamine Hcl 100 Mg Tab) 100 mg PO QAM [facility] Stop: 04/10/20 08:59 Umeclidinium/Vilanterol (Umeclidinium/Vilanterol 62.5/25mcg 7 Puffs/Inhaler) 1 puffs INH QAM [facility] Stop: 04/11/20 11:59 (1) Left upper lobe pneumonia Pneumonia type: due to unspecified organism Qualified Code(s): J18.9 - Pneumonia, unspecified organism
[2020-03-12] MEDS: PIPERACILLIN/TAZOBACTAM 4.5 GM in DEXTROSE 5% 100 ML IV SCH ×3 (00:03→15:38)
[2020-03-12] MEDS: HEPARIN SOD 5,000 UNIT/0.5 ML VIAL SQ SCH (06:02)
[2020-03-12 06:29] LABS: Basophils # (auto) 0.01 K/uL (0-0.2); Basophils % (auto) 0.1 %; Hematocrit (blood only) 29.8 % (42-52); Hemoglobin 9.2 g/dL (14.0-18.0); Immature Granulocytes # (auto) 0.06 K/uL (0.00-0.02); Immature Granulocytes % (auto) 0.4 %; Lymphocytes # (auto) 0.69 K/uL (1.2-3.4); Lymphocytes % (auto) 4.1 %; Mean Corpuscular Hemoglobin 25.9 pg (25-34); Mean Corpuscular Hgb Conc 30.9 g/dL (32-36); Mean Corpuscular Volume 83.9 fL (80-100); Mean Platelet Volume 7.9 fL (7.4-10.4); Monocytes # (auto) 0.82 K/uL (0.11-0.59); Monocytes % (auto) 4.9 %; Neutrophils # (auto) 15.26 K/uL (1.4-6.5); Neutrophils % (auto) 90.5 %; Platelet Count 532 K/uL (130-400); RDW Coefficient of Variation 16.5 % (11.5-14.5); RDW Standard Deviation 51.2 fL (36.4-46.3); Red Blood Count 3.55 M/uL (4.7-6.1); White Blood Count 16.84 K/uL (4.8-10.8)
[2020-03-12 06:45] LABS: Est GFR (African American) 125.8; Est GFR (Non-African American) 108.5; Potassium 4.6 mmol/L (3.5-5.1)
[2020-03-12 06:46] LABS: BUN Creatinine Ratio 20.9 (10-20); Creatinine Clr Calc Pharmacy 137.2 ml/min; Magnesium 2.6 mg/dl (1.8-2.4); Phosphorus 3.1 mg/dl (2.5-4.9)
--- NOTE | 2020-03-12 08:53 | Electrocardiogram Report ---
Test Reason : Blood Pressure : / mmHG Vent. Rate : 098 BPM Atrial Rate : 104 BPM P-R Int : 000 ms QRS Dur : 094 ms QT Int : 334 ms P-R-T Axes : 000 070 049 degrees QTc Int : 426 ms Atrial fibrillation with premature ventricular or aberrantly conducted complexes Low voltage QRS Abnormal ECG When compared with ECG of 11-MAR-2020 02:54, Atrial fibrillation has replaced Sinus rhythm Confirmed by Isaac Dickinson ([id number]) on 03/12/2020 8:53:01 AM Referred By: REFERRED SELF Confirmed By:Isaac Dickinson
--- NOTE | 2020-03-12 09:08 | Pulmonology Progress Note ---
Date of Service March 12, 2020 Assessment & Plan (1) Acute respiratory failure with hypoxia: Impression: 59-year-old male with history of tobacco and alcohol abuse treated for pneumonia and empyema back in December however did not complete antibiotics and returns now with dense left-sided consolidation. He is improving with decreasing leukocytosis and improving oxygen requirement. Recommendation: 1. Severe community-acquired pneumonia: Cultures are currently pending. He is currently day #2 Zosyn and doxycycline. Vancomycin discontinued. Late positive blood culture may represent contamination but will follow. Sputum culture pending. Should be able to de-escalate antibiotics within 24 hours. He will likely need to complete 14 to 21 days of antimicrobial therapy to ensure his em pyema does not recur. Follow-up radiography with his primary care provider in 4 weeks is recommended as well. 2. COPD: The patient is not bronchospastic for now. No indication for steroids. Continue Anoro and as needed bronchodilators. 3. Hypoxemic respiratory failure: Improved compared to yesterday. Continue to wean as tolerated. Patient may require oxygen to go home. Can increase activ ity and ambulate as tolerated. 4. Lower extremity edema: Suspect related to grade 2 diastolic dysfunction. Continue blood pressure control and will escalate diuretics. Elevate legs as much as possible. No evidence of nephrotic syndrome or significant pulmonary hypertension We will continue to follow with you. Feel free to contact us with questions or concerns (2) Left upper lobe pneumonia: Pneumonia type: due to unspecified organism Qualified Code(s): J18.9 - Pneumonia, unspecified organism (3) Pulmonary emphysema: Admission and Anticipated Discharge Date Admission Date: March 11, 2020 Subjective Patient seen and examined. EMR reviewed. Patient reports that his breathing is somewhat better. He is already asking about being dismissed from the hospital. He is coughing and producing significant amount of phlegm. He denies any chest pain. He does experience some shortness of breath but is up ambulating to the bathroom. He remains on supplemental oxygen. Review of Systems Review of Systems: Unchanged from prior Physical Exam Constitutional: Thin appearing male in no apparent distress. Jittery at times. Eyes: PERRL, conjunctivae normal, anicteric sclerae ENMT: external ear and nose normal, oropharynx normal Neck: normal visual inspection Respiratory: Left chest tube in place with dried blood noted. Lung sounds clear on the left. Cardiovascular: 1-2+ pitting edema in the lower extremities. Regular rate and rhythm. No obvious murmurs. Gastrointestinal (Abdomen): normal bowel sounds, soft, nontender, no hepatosplenomegaly Musculoskeletal: no cyanosis or clubbing, extremities motor strength 5/5 Skin: no rashes, warm and dry Neurologic: PERRL, EOMI, accommodation nl, no face palsy, no dysarthria Psychiatric: Very talkative. Alert and oriented. Results & Data Results & Data ([facility]) Vital Signs (Past 12 Hours) Vital Signs Temp Pulse Pulse Pulse Resp BP BP 03/12/20 07:06 36.6 C 113 H 20 129/68 03/12/20 04:00 36.6 C 99 H 23 102/70 03/12/20 00:00 36.7 C 96 H 25 H 115/65 03/11/20 23:54 37 C 105 H 17 106/64 Pulse Ox 03/12/20 07:06 93 03/12/20 04:00 90 03/12/20 00:00 89 L 03/11/20 23:54 93 Laboratory Results 03/12/20 05:48 03/12/20 05:48 Blood cultures, gram-positive cocci 1 out of 2 bottles. Late positive result. Sputum culture pending Urinalysis showed trace urine protein with 2+ blood but likely contaminated based on 10-20 epithelial cells per high-power field. Diagnostic Findings Echocardiogram from yesterday demonstrated ejection fraction of 55 to 60% with grade 2 diastolic dysfunction. RV was poorly visualized and may have been slightly dilated but no evidence of pulmonary hypertension. PG Care Time/CCT Total # of Minutes Spent Total Time Spent with Patient: Total time spent is greater than 50% in coordination of care (as documented) at patient's floor/unit and/or counseling patient: Coding Level of Care Code 88108 Subseq Hosp Care Lvl 3 Diagnoses Acute respiratory failure with hypoxia J96.01 Left upper lobe pneumonia J18.9 Pneumonia type: due to unspecified organism Pulmonary emphysema J43.9
[2020-03-12] MEDS: FUROSEMIDE 40 MG in SYRINGE 0 ML IV SCH (10:18)
[2020-03-12] MEDS: PANTOprazole 40 MG TAB PO SCH (10:19)
[2020-03-12] MEDS: CEROVITE ADV FORMULA TAB PO SCH (10:19)
[2020-03-12] MEDS: THIAMINE HCL 100 MG in SYRINGE 9 ML IV SCH (10:20)
[2020-03-12] MEDS: FOLIC ACID 1 MG in SYRINGE 9.8 ML IV SCH (10:20)
[2020-03-12] MEDS: UMECLIDINIUM/VILANTEROL 62.5/25MCG 7 PUFFS/INHALER INH SCH (10:22)
[2020-03-12] MEDS: THIAMINE HCL 100 MG TAB PO SCH (10:22)
[2020-03-12] MEDS ORDERED: Heparin IV Low Dose WITH Bolus IV SCH (11:48)
[2020-03-12] MEDS ORDERED: HEPARIN IV BOLUS 4,000 UNITS in SYRINGE 0 ML IV ONE (12:15)
[2020-03-12 12:25] LABS: Hematocrit (blood only) 32.5 % (42-52); Mean Corpuscular Volume 84.4 fL (80-100); Mean Platelet Volume 7.8 fL (7.4-10.4); Platelet Count 565 K/uL (130-400); RDW Coefficient of Variation 16.7 % (11.5-14.5); RDW Standard Deviation 51.7 fL (36.4-46.3); Red Blood Count 3.85 M/uL (4.7-6.1)
[2020-03-12 12:28] LABS: Mean Corpuscular Hgb Conc 30.8 g/dL (32-36)
[2020-03-12 12:34] LABS: INR 1.2 (0.9-1.1); Partial Thromboplastin Time 27.8 Seconds (21.0-31.0); Prothrombin Time 12.3 Seconds (9.0-12.0)
[2020-03-12 12:45] LABS: Basophils # (auto) 0.01 K/uL (0-0.2); Hypochromasia Present; Immature Granulocytes # (auto) 0.15 K/uL (0.00-0.02); Immature Granulocytes % (auto) 0.6 %; Lymphocytes # (auto) 2.06 K/uL (1.2-3.4); Lymphocytes % (auto) 8.3 %; Microcytosis Present; Monocytes # (auto) 0.55 K/uL (0.11-0.59); Monocytes % (auto) 2.2 %; Neutrophils # (auto) 21.93 K/uL (1.4-6.5); Neutrophils % (auto) 88.9 %
[2020-03-12 12:56] LABS: Folate (Folic Acid) 5.54 ng/ml (>5.38)
[2020-03-12] MEDS: HEPARIN SODIUM/DEXTROSE 25,000 UNITS/500 ML BAG IV SCH (12:59)
--- NOTE | 2020-03-12 13:10 | Cardiology Consultation ---
Date of Consultation March 12, 2020 Assessment & Plan (1) Atrial fibrillation with RVR: (2) Acute respiratory failure with hypoxia: (3) Left upper lobe pneumonia: (4) COPD with acute exacerbation: (5) Pulmonary emphysema: (6) Tobacco abuse: (7) IV drug abuse: (8) Noncompliance with medication regimen: It is not surprising the patient will lapsed into atrial fibrillation given the clinical context of hypoxic respiratory failure in the setting of significant pneumonia. The pathophysiology and treatment options for atrial fibrillation were discussed with him at great lengths. Likely we have a documented he was in normal sinus rhythm upon presentation. His baseline QTC was documented at 438 ms upon presentation. I believe the most prudent course of action at this point will be to start the patient on sotalol therapy. The pros, cons and alternatives to this medication were discussed with him at great lengths. My hope is that he will spontaneously converted on his own and then be able to maintain on sotalol therapy afterwards. Duration of therapy can then be determined on an outpatient basis. Should he not spontaneously converted on his own DC cardioversion may be required this admission as well. He has been started on IV heparin however given his documented medication noncompliance I am reluctant to place him on long-term oral anticoagulation given its inherent risks. But we will continue IV heparin for now. Continuous telemetry monitoring for 72 hours along with daily EKGs to monitor for QT prolongation. His electrolytes should also be monitored closely and repleted as necessary with a goal potassium level of greater than 4 magnesium greater than 2 History of Present Illness Reason for Consultation: new onset afib with rvr Requesting Physician: Dr. Krause Attending Physician: Gianni Krause MD History of Present Illness Mr. Alejandro is a very pleasant 59-year-old gentleman who presented to [facility] on March 11 with complaints of shortness of breath, cough and worsening fatigue. He was recently admitted in December for a large parapneumonic effusion that required pigtail catheter placement. He was discharged at his request and [facility]. He was admitted to the intensive care unit after he was found to be tachycardic, borderline hypotensive and hypoxic in the emergency department. Near whiteout of his left-sided lung was also noted on chest x-ray. He was seen by the critical care team and started on appropriate treatment for his pneumonia. Overnight he went into atrial fibrillation with rapid ventricular response even though he was documented to be in sinus rhythm upon presentation. Clinically patient states he is currently feeling much better since admission. He notes that his breathing is still a little rough but improved from presentation. He denies any chest pain, palpitations, lightheadedness, dizziness or syncope. He also denies ever being diagnosed with atrial fibrillation in the past. Allergies Allergy/AdvReac Type Severity Reaction Status Date / Time phenobarbital Allergy Unknown Verified 03/11/20 03:06 Home Medications Home Medications Medication Instructions Recorded Confirmed Type No Known Home Medications 01/09/20 03/11/20 History Patient History Medical History Acute hypoxemic respiratory failure Alcoholism Asymmetric edema of both lower extremities IV drug abuse Left rib fracture Moderate protein-energy malnutrition No acute medical problems Parapneumonic effusion Pulmonary emphysema Tobacco abuse Surgical History No pertinent past surgical history Social History Smoking Status: Current every day smoker Cigarettes Per Day: 1-2 PPD; Hx Alcohol Use: No Hx Substance Use: No Preferred Language: Frisian Communication Ability: Effective Senior Analytic Consultant Required: No Beliefs That Will Affect Care: None marital status: Single Current Living Situation: Parent Other Information That Helps Us Care for You: No Feels Safe at Home: Yes Safety Concerns: Feels Safe At This Time Review of Systems Review of Systems: All systems reviewed & are unremarkable except as noted in HPI & below Physical Exam Physical Exam: General: Awake, alert and oriented x 3. No acute distress. HEENT: Normocephalic, atraumatic. Pupils equal, round and reactive to light and accommodation. Extraocular muscles are intact. Anicteric sclera. Moist mucous membranes. Neck: No JVD. No bruit. Cardiovascular: irregularly irregular, unable to appreciate murmur, rub or gallop. Pulmonary: Clear to auscultation bilaterally. No rales, rhonchi, or wheezing. Abdomen: Bowel sounds x 4, soft. No rebound, guarding or tenderness. No organomegaly. Extremities: No clubbing, cyanosis or edema. +2 pedal pulses bilaterally. Skin: Warm and dry. Results & Data ([facility]) Vital Signs (Past 12 Hours) Vital Signs Temp Pulse Pulse Pulse Resp BP Pulse Ox 03/12/20 11:04 36.8 C 101 H 20 102/77 97 03/12/20 08:00 36.6 C 96 H 91 H 18 03/12/20 07:06 36.6 C 113 H 20 129/68 93 03/12/20 04:00 36.6 C 99 H 23 102/70 90 Laboratory Results Laboratory Results - last 24 hr 03/11/20 03/12/20 03/12/20 21:07 05:48 05:48 WBC 16.84 H RBC 3.55 L Hgb 9.2 L Hct 29.8 L MCV 83.9 MCH 25.9 MCHC 30.9 L RDW Std Deviation 51.2 H RDW Coeff of [place] 16.5 H Plt Count 532 H MPV 7.9 Immature Gran % (Auto) 0.4 Neut % (Auto) 90.5 Lymph % (Auto) 4.1 [place] % (Auto) 4.9 Eos % (Auto) 0.0 Baso % (Auto) 0.1 Neut # (Auto) 15.26 H Lymph # (Auto) 0.69 L [place] # (Auto) 0.82 H Eos # (Auto) 0.00 Baso # (Auto) 0.01 Immature Gran # (Auto) 0.06 H Hypochromasia Microcytosis PT INR APTT PTT Ratio Sodium 136 Potassium 4.6 Chloride 103 Carbon Dioxide 31 Anion Gap 2.0 L BUN 13 Creatinine 0.61 Est Cr Clr Drug Dosing 137.2 Est GFR ( Amer) 125.8 Est GFR (Non-Af Amer) 108.5 BUN/Creatinine Ratio 20.9 H Glucose 152 H POC Glucose 196 H Calcium 9.0 Phosphorus 3.1 Magnesium 2.6 H Vitamin B12 Folate 03/12/20 03/12/20 03/12/20 05:48 07:17 11:14 WBC RBC Hgb Hct MCV MCH MCHC RDW Std Deviation RDW Coeff of [place] Plt Count MPV Immature Gran % (Auto) Neut % (Auto) Lymph % (Auto) [place] % (Auto) Eos % (Auto) Baso % (Auto) Neut # (Auto) Lymph # (Auto) [place] # (Auto) Eos # (Auto) Baso # (Auto) Immature Gran # (Auto) Hypochromasia Microcytosis PT INR APTT PTT Ratio Sodium Potassium Chloride Carbon Dioxide Anion Gap BUN Creatinine Est Cr Clr Drug Dosing Est GFR ( Amer) Est GFR (Non-Af Amer) BUN/Creatinine Ratio Glucose POC Glucose 146 H 174 H Calcium Phosphorus Magnesium Vitamin B12 325 Folate 5.54 03/12/20 03/12/20 12:13 12:13 WBC 24.70 H RBC 3.85 L Hgb 10.0 L Hct 32.5 L MCV 84.4 MCH 26.0 MCHC 30.8 L RDW Std Deviation 51.7 H RDW Coeff of [place] 16.7 H Plt Count 565 H MPV 7.8 Immature Gran % (Auto) 0.6 Neut % (Auto) 88.9 Lymph % (Auto) 8.3 [place] % (Auto) 2.2 Eos % (Auto) 0.0 Baso % (Auto) 0.0 Neut # (Auto) 21.93 H Lymph # (Auto) 2.06 [place] # (Auto) 0.55 Eos # (Auto) 0.00 Baso # (Auto) 0.01 Immature Gran # (Auto) 0.15 H Hypochromasia Present Microcytosis Present PT 12.3 H INR 1.2 H APTT 27.8 PTT Ratio 1.0 Sodium Potassium Chloride Carbon Dioxide Anion Gap BUN Creatinine Est Cr Clr Drug Dosing Est GFR ( Amer) Est GFR (Non-Af Amer) BUN/Creatinine Ratio Glucose POC Glucose Calcium Phosphorus Magnesium Vitamin B12 Folate Medications Administered Current Inpatient Medications Doxycycline Hyclate (Doxycycline Hyclate 100 Mg Cap) 100 mg PO BID [facility] Stop: 03/19/20 20:59 Thiamine HCl 100 mg/ Syringe 10 mls @ 2 mls/min IV QAM [facility] Stop: 04/10/20 08:59 Last Admin: 03/12/20 10:20 Dose: Not Given Documented by: Folic Acid 1 mg/ Syringe 10 mls @ 5 mls/min IV QAM [facility] Stop: 04/10/20 08:59 Last Admin: 03/12/20 10:20 Dose: 5 mls/min Documented by: Piperacillin Sod/Tazobactam (Sod 4.5 gm/ Dextrose) 120 mls @ 30 mls/hr IV Q8H [facility]; Protocol Stop: 03/18/20 07:59 Last Admin: 03/12/20 15:38 Dose: 30 mls/hr Documented by: Furosemide 40 mg/ Syringe 4 mls @ 4 mls/min IV DAILY [facility] Stop: 04/11/20 09:29 Last Admin: 03/12/20 10:18 Dose: 4 mls/min Documented by: Heparin Sodium/Dextrose (Heparin Sodium/Dextrose) 25,000 units in 500 mls @ 19 mls/hr IV .Q24H [facility]; Protocol Stop: 04/11/20 12:14 Last Admin: 03/12/20 12:59 Dose: 950 units/hr, 19 mls/hr Documented by: Ipratropium [place] (Ipratropium [place] Neb Soln 0.02% 2.5 Ml Vial) 0.5 mg INH Q4R PRN PRN Reason: Shortness Of Breath Or Wheezing Stop: 04/10/20 06:59 Lorazepam (Lorazepam 1 Mg Tab) 1 mg PO ONE PRN; Protocol PRN Reason: EtoH Withdrawal AWSS 6-10 Miscellaneous (Icu Protocol For Hyperglycemia) 1 ea N/A PRN PRN; Protocol PRN Reason: Hyperglycemia Protocol Stop: 03/13/20 06:29 Miscellaneous Information (Piperacill/Tazobac Consult Active) 1 ea N/A UD PRN PRN Reason: Consult Stop: 04/10/20 03:15 Multivitamins/Minerals (Cerovite Adv Formula Tab) 1 tab PO DAILY@1100 [facility] Stop: 04/10/20 10:59 Last Admin: 03/12/20 10:19 Dose: 1 tab Documented by: Pantoprazole Sodium (Pantoprazole 40 Mg Tab) 40 mg PO DAILY [facility] Stop: 04/10/20 08:59 Last Admin: 03/12/20 10:19 Dose: 40 mg Documented by: Sotalol HCl (Sotalol Hcl 80 Mg Tab) 80 mg PO BID [facility] Stop: 04/11/20 13:09 Last Admin: 03/12/20 14:36 Dose: 80 mg Documented by: Thiamine HCl (Thiamine Hcl 100 Mg Tab) 100 mg PO QAM [facility] Stop: 04/10/20 08:59 Last Admin: 03/12/20 10:22 Dose: 100 mg Documented by: Umeclidinium/Vilanterol (Umeclidinium/Vilanterol 62.5/25mcg 7 Puffs/Inhaler) 1 puffs INH QAM [facility] Stop: 04/11/20 11:59 Last Admin: 03/12/20 10:22 Dose: 1 puffs Documented by: (1) Left upper lobe pneumonia Pneumonia type: due to unspecified organism Qualified Code(s): J18.9 - Pneumonia, unspecified organism
[2020-03-12] MEDS ORDERED: DOXYCYCLINE HYCLATE 100 MG CAP PO STA (13:55)
--- NOTE | 2020-03-12 13:55 | Hospitalist Progress Note ---
Date of Service March 12, 2020 Assessment & Plan (1) Acute respiratory failure with hypoxia: Admitted with acute respiratory failure secondary to multilobar pneumonia involving the left lung History of left lung empyema in December and failed to have prolonged course of antibiotic as was Advised Has been on intravenous Zosyn Doxycycline and vancomycin have been discontinued Appreciate blanking machine operator input and recommendation Received doxycycline last dose yesterday, will continue doxycycline and intravenous Zosyn as per recommendation from blanking machine operator Clinically shows improvement (2) Left upper lobe pneumonia: Severe pneumonia as above as above Has multilobar pneumonia with almost involvement of whole of the left lung No significant effusion Has been on intravenous Zosyn and oral doxycycline (3) Pulmonary emphysema: COPD with ongoing smoking Does not have any exacerbation at this time Discontinue Solu-Medrol (4) Tobacco abuse: Ongoing tobacco abuse Advised to quit smoking Smoke cessation History of alcohol abuse Has not been drinking for the last 2 years (5) IV drug abuse: History of IV drug abuse Lower extremity edema No evidence of DVT on scan DVT prophylaxis Intravenous heparin (6) Atrial fibrillation with RVR: Noted to have atrial fibrillation with RVR since this morning Denies any symptoms of palpitation and/or chest pain Echo of the heart showed-normal LV size and thickness with EF of 55 to 60%, no segmental wall motion abnormality, poorly visualized right ventricle, possibly dilated, focal thickening of the posterior mitral valve annulus unchanged compared to prior study Started on intravenous heparin(-discussed the pros and cons of heparin with the) and oral sotalol Appreciate cardiology input and recommendation Admission and Anticipated Discharge Date Admission Date: March 11, 2020 Subjective 03/11/2020 The patient was seen and examined in ICU He has been admitted with progressive pneumonia with acute respiratory failure He has been feeling a little bit better since admission Has shortness of breath at rest but denies any other significant symptoms 03/12/2020 Patient was seen and examined in telemetry unit He has been feeling much better with moderate shortness of breath at rest and cough with productive of yellowish phlegm Noted to have atrial fibrillation with RVR since this morning without any symptoms Review of Systems Review of Systems: All systems reviewed and are unremarkable except as noted below Constitutional: + fatigue, + weakness and + anorexia Respiratory: + cough, + chest congestion and + dyspnea (At rest); no hemoptysis Physical Exam Physical Exam: Sitting at the edge of the bed with moderate shortness of breath Constitutional: well developed, well nourished, + acute distress (Shortness of breath) and + ill appearing Eyes: PERRL, conjunctivae normal, anicteric sclerae ENMT: external ear and nose normal, oropharynx normal Neck: trachea midline, no thyromegaly Respiratory: + respiratory distress and + uses accessory muscles Auscultation: + diminished lung sounds (Decreased breath sound left lung with coarse crackles at the base) and + wheezes Cardiovascular: Rate/Rhythm: + abnormal rate and + abnormal rhythm Heart Sounds: no murmur Extremities: + edema (1+ edema bilaterally) Gastrointestinal (Abdomen): Inspection/Auscultation: abdomen normal to inspection and normal bowel sounds; abdomen not distended Percussion/Palpation: abdomen soft; abdomen nontender Musculoskeletal: No acute arthritis involving any joints Neurologic: moves all extremities; no focal motor deficits Alert, awake and oriented x3 Lymphatic: no cervical or axillary lymphadenopathy Results & Data Results & Data ([facility]) Vital Signs (Past 12 Hours) Vital Signs Temp Pulse Pulse Pulse Resp BP Pulse Ox 03/12/20 13:18 93 03/12/20 11:04 36.8 C 101 H 20 102/77 97 03/12/20 08:00 36.6 C 96 H 91 H 18 03/12/20 07:06 36.6 C 113 H 20 129/68 93 03/12/20 04:00 36.6 C 99 H 23 102/70 90 Laboratory Results Short CBC 03/12/20 03/12/20 Range/Units 05:48 12:13 WBC 16.84 H 24.70 H (4.8-10.8) K/uL Hgb 9.2 L 10.0 L (14.0-18.0) g/dL Hct 29.8 L 32.5 L (42-52) % Plt Count 532 H 565 H (130-400) K/uL BMP 03/12/20 05:48 Sodium 136 Potassium 4.6 Chloride 103 Carbon Dioxide 31 BUN 13 Creatinine 0.61 Glucose 152 H Calcium 9.0 Medications Administered Current Inpatient Medications Thiamine HCl 100 mg/ Syringe 10 mls @ 2 mls/min IV QAM [facility] Stop: 04/10/20 08:59 Last Admin: 03/12/20 10:20 Dose: Not Given Documented by: Folic Acid 1 mg/ Syringe 10 mls @ 5 mls/min IV QAM [facility] Stop: 04/10/20 08:59 Last Admin: 03/12/20 10:20 Dose: 5 mls/min Documented by: Piperacillin Sod/Tazobactam (Sod 4.5 gm/ Dextrose) 120 mls @ 30 mls/hr IV Q8H [facility]; Protocol Stop: 03/18/20 07:59 Last Admin: 03/12/20 10:19 Dose: 30 mls/hr Documented by: Furosemide 40 mg/ Syringe 4 mls @ 4 mls/min IV DAILY [facility] Stop: 04/11/20 09:29 Last Admin: 03/12/20 10:18 Dose: 4 mls/min Documented by: Heparin Sodium/Dextrose (Heparin Sodium/Dextrose) 25,000 units in 500 mls @ 19 mls/hr IV .Q24H [facility]; Protocol Stop: 04/11/20 12:14 Last Admin: 03/12/20 12:59 Dose: 950 units/hr, 19 mls/hr Documented by: Ipratropium [place] (Ipratropium [place] Neb Soln 0.02% 2.5 Ml Vial) 0.5 mg INH Q4R PRN PRN Reason: Shortness Of Breath Or Wheezing Stop: 04/10/20 06:59 Lorazepam (Lorazepam 1 Mg Tab) 1 mg PO ONE PRN; Protocol PRN Reason: EtoH Withdrawal AWSS 6-10 Miscellaneous (Icu Protocol For Hyperglycemia) 1 ea N/A PRN PRN; Protocol PRN Reason: Hyperglycemia Protocol Stop: 03/13/20 06:29 Miscellaneous Information (Piperacill/Tazobac Consult Active) 1 ea N/A UD PRN PRN Reason: Consult Stop: 04/10/20 03:15 Multivitamins/Minerals (Cerovite Adv Formula Tab) 1 tab PO DAILY@1100 [facility] Stop: 04/10/20 10:59 Last Admin: 03/12/20 10:19 Dose: 1 tab Documented by: Pantoprazole Sodium (Pantoprazole 40 Mg Tab) 40 mg PO DAILY [facility] Stop: 04/10/20 08:59 Last Admin: 03/12/20 10:19 Dose: 40 mg Documented by: Sotalol HCl (Sotalol Hcl 80 Mg Tab) 80 mg PO BID [facility] Stop: 04/11/20 13:09 Thiamine HCl (Thiamine Hcl 100 Mg Tab) 100 mg PO QAM [facility] Stop: 04/10/20 08:59 Last Admin: 03/12/20 10:22 Dose: 100 mg Documented by: Umeclidinium/Vilanterol (Umeclidinium/Vilanterol 62.5/25mcg 7 Puffs/Inhaler) 1 puffs INH QAM [facility] Stop: 04/11/20 11:59 Last Admin: 03/12/20 10:22 Dose: 1 puffs Documented by: (1) Left upper lobe pneumonia Pneumonia type: due to unspecified organism Qualified Code(s): J18.9 - Pneumonia, unspecified organism
[2020-03-12] MEDS: SOTALOL HCL 80 MG TAB PO SCH ×2 (14:36→20:59)
[2020-03-12 19:25] LABS: Partial Thromboplastin Time 26.8 Seconds (21.0-31.0)
[2020-03-12] MEDS: DOXYCYCLINE HYCLATE 100 MG CAP PO SCH (21:00)
[2020-03-12] MEDS ORDERED: HEPARIN IV BOLUS 4,500 UNITS in SYRINGE 0 ML IV ONE (22:00)
[2020-03-13] MEDS: PIPERACILLIN/TAZOBACTAM 4.5 GM in DEXTROSE 5% 100 ML IV SCH ×2 (00:08→08:35)
[2020-03-13 04:28] LABS: Basophils # (auto) 0.01 K/uL (0-0.2); Eosinophils # (auto) 0.01 K/uL (0-0.5); Hematocrit (blood only) 31.5 % (42-52); Hemoglobin 9.7 g/dL (14.0-18.0); Immature Granulocytes % (auto) 0.5 %; Lymphocytes # (auto) 1.52 K/uL (1.2-3.4); Mean Corpuscular Hemoglobin 26.4 pg (25-34); Mean Corpuscular Hgb Conc 30.8 g/dL (32-36); Mean Corpuscular Volume 85.6 fL (80-100); Mean Platelet Volume 7.8 fL (7.4-10.4); Monocytes # (auto) 1.55 K/uL (0.11-0.59); Monocytes % (auto) 7.2 %; Neutrophils # (auto) 18.43 K/uL (1.4-6.5); Neutrophils % (auto) 85.3 %; Nucleated RBC # (auto) 0.02 K/uL (0-0); Nucleated RBC % (auto) 0.1 %; Platelet Count 588 K/uL (130-400); RDW Coefficient of Variation 16.9 % (11.5-14.5); RDW Standard Deviation 53.3 fL (36.4-46.3); Red Blood Count 3.68 M/uL (4.7-6.1); White Blood Count 21.62 K/uL (4.8-10.8)
[2020-03-13 04:40] LABS: Partial Thromboplastin Ratio 1.3; Partial Thromboplastin Time 35.6 Seconds (21.0-31.0)
[2020-03-13 04:51] LABS: BUN Creatinine Ratio 22.2 (10-20); Calcium 8.7 mg/dl (8.5-10.1); Creatinine Clr Calc Pharmacy 99.6 ml/min; Est GFR (African American) 110.3; Est GFR (Non-African American) 95.2; Magnesium 2.1 mg/dl (1.8-2.4); Phosphorus 2.8 mg/dl (2.5-4.9); Potassium 3.8 mmol/L (3.5-5.1)
[2020-03-13] MEDS ORDERED: HEPARIN IV BOLUS 4,500 UNITS in SYRINGE 0 ML IV ONE ×3 (05:00→19:30)
--- NOTE | 2020-03-13 08:07 | XRay Report ---
SINGLE VIEW CHEST CLINICAL HISTORY: Respiratory failure. FINDINGS: 2 AP, portable, upright chest radiographs are compared to chest x-ray and chest CT dated . The examination is degraded by portable technique and patient rotation. The heart is top nor mal for projection noting atherosclerotic calcification of the thoracic aorta. Advanced emphysema and chronic interstitial thickening is similar to previous. Dense airspace consolidation is again seen t hroughout the left lung, most confluent in the left upper lobe. There is a small left pleural effusio n. The right lung appears clear. No pneumothorax is seen. The skeletal structures are osteopenic. The bony thorax is grossly intact. IMPRESSION: 1. Advanced emphysema. 2. Airspace consolidation throughout the left lung and a small left pleural effusion is similar to pr evious. ACT 112: Negative or not required by law. Electronically signed by: Justin Stoll M.D. 03/13/2020 8:06 AM
[2020-03-13] MEDS: THIAMINE HCL 100 MG in SYRINGE 9 ML IV SCH (08:36)
[2020-03-13] MEDS: FUROSEMIDE 40 MG in SYRINGE 0 ML IV SCH (08:36)
[2020-03-13] MEDS: PANTOprazole 40 MG TAB PO SCH (08:36)
[2020-03-13] MEDS: DOXYCYCLINE HYCLATE 100 MG CAP PO SCH (08:36)
[2020-03-13] MEDS: FOLIC ACID 1 MG in SYRINGE 9.8 ML IV SCH (08:36)
[2020-03-13] MEDS: THIAMINE HCL 100 MG TAB PO SCH (08:36)
[2020-03-13] MEDS: UMECLIDINIUM/VILANTEROL 62.5/25MCG 7 PUFFS/INHALER INH SCH (08:37)
[2020-03-13] MEDS: SOTALOL HCL 80 MG TAB PO SCH ×2 (08:37→20:31)
[2020-03-13] MEDS ORDERED: POTASSIUM CHLORIDE 20 MEQ TABCR PO STA (10:24)
[2020-03-13] MEDS ORDERED: ACETAMINOPHEN 500 MG TAB PO PRN (10:28)
[2020-03-13 11:12] LABS: Partial Thromboplastin Ratio 1.2; Partial Thromboplastin Time 32.2 Seconds (21.0-31.0)
[2020-03-13] MEDS: HEPARIN SODIUM/DEXTROSE 25,000 UNITS/500 ML BAG IV SCH (11:37)
[2020-03-13] MEDS: CEROVITE ADV FORMULA TAB PO SCH (11:38)
--- NOTE | 2020-03-13 11:43 | Electrocardiogram Report ---
Test Reason : Blood Pressure : / mmHG Vent. Rate : 085 BPM Atrial Rate : 000 BPM P-R Int : 000 ms QRS Dur : 100 ms QT Int : 368 ms P-R-T Axes : 000 058 057 degrees QTc Int : 437 ms Atrial fibrillation with premature ventricular or aberrantly conducted complexes Abnormal ECG When compared with ECG of 12-MAR-2020 05:58, No significant change was found Confirmed by Isaac Dickinson ([id number]) on 03/13/2020 11:42:54 AM Referred By: REFERRED SELF Confirmed By:Isaac Dickinson
--- NOTE | 2020-03-13 12:08 | Pulmonology Progress Note ---
Date of Service March 13, 2020 Assessment & Plan (1) Acute respiratory failure with hypoxia: Impression: 59-year-old male with history of tobacco and alcohol abuse treated for pneumonia and empyema back in December however did not complete antibiotics and returns now with dense left-sided consolidation. He is improving with decreasing leukocytosis and improving oxygen requirement. Recommendation: 1. Severe community-acquired pneumonia: Cultures are currently negative. He is currently day #3 Zosyn and doxycycline. Vancomycin discontinued. Late positive blood culture may represent contamination but will follow. Sputum culture pending. Will de-escalate antibiotics to Unasyn at this point in time. This will facilitate transition to oral Augmentin at the time of discharge. 2 weeks antimicrobial therapy recommended and will require follow-up chest x-ray with a primary care provider in 1 to 2 weeks 2. COPD: The patient is not bronchospastic for now. No indication for steroid s. Continue Anoro and as needed bronchodilators. 3. Hypoxemic respiratory failure: Improved compared to yesterday. Continue to wean as tolerated. Patient may require oxygen to go home. Can increase activity and ambulate as tolerated. 4. Lower extremity edema: Suspect related to grade 2 diastolic dysfunction. Continue blood pressure control and will escalate diuretics. Elevate legs as much as possible. No evidence of nephrotic syndrome or significant pulmonary hypertension. I's and O's negative last 24 hours and would continue diuretics at this point time. We will continue to follow with you. Feel free to contact us with questions or concerns (2) Left upper lobe pneumonia: Pneumonia type: due to unspecified organism Qualified Code(s): J18.9 - Pneumonia, unspecified organism (3) Pulmonary emphysema: Admission and Anticipated Discharge Date Admission Date: March 11, 2020 Subjective Patient seen and examined. Films were independently reviewed. The patient is doing reasonably well clinically. His oxygen continues to be weaned. He is complaining of a headache this morning. He does drink caffeinated beverages at home. He is unclear what he takes at home for headaches. He is coughing but expectorating less phlegm. No chest pain or palpitations. His lower extremity edema is improving. Review of Systems Review of Systems: Unchanged from prior Physical Exam Eyes: PERRL, conjunctivae normal, anicteric sclerae ENMT: external ear and nose normal, oropharynx normal Neck: normal visual inspection Gastrointestinal (Abdomen): normal bowel sounds, soft, nontender, no hepatosplenomegaly Musculoskeletal: no cyanosis or clubbing, extremities motor strength 5/5 Skin: no rashes, warm and dry Neurologic: PERRL, EOMI, accommodation nl, no face palsy, no dysarthria Results & Data Results & Data ([facility]) Vital Signs (Past 12 Hours) Vital Signs Temp Pulse Pulse Resp BP Pulse Ox Pulse Ox 03/13/20 11:01 37.0 C 90 18 114/71 97 03/13/20 07:18 37.0 C 87 18 118/77 95 03/13/20 07:00 74 03/13/20 06:00 94 03/13/20 03:00 36.6 C 79 16 115/72 97 Laboratory Results 03/13/20 04:20 03/13/20 04:20 Sputum culture no growth to date. Blood cultures 1 out of 2 gram-positive cocci, likely contaminant. Diagnostic Findings Chest x-ray from today was independently reviewed. There is persistent airspace opacity throughout the left hemithorax. No significant accumulation of pleural fluid at this time. Right lung remains essentially clear PG Care Time/CCT Total # of Minutes Spent Total Time Spent with Patient: Total time spent is greater than 50% in coordination of care (as documented) at patient's floor/unit and/or counseling patient: Coding Level of Care Code 88558 Subseq Hosp Care Lvl 2 Diagnoses Acute respiratory failure with hypoxia J96.01 Left upper lobe pneumonia J18.9 Pneumonia type: due to unspecified organism Pulmonary emphysema J43.9
--- NOTE | 2020-03-13 13:53 | Cardiology Progress Note ---
Date of Service March 13, 2020 Assessment & Plan (1) Atrial fibrillation with RVR: (2) Acute respiratory failure with hypoxia: (3) Left upper lobe pneumonia: (4) COPD with acute exacerbation: (5) Pulmonary emphysema: (6) Tobacco abuse: (7) IV drug abuse: (8) Noncompliance with medication regimen: It is not surprising the patient will lapsed into atrial fibrillation given the clinical context of hypoxic respiratory failure in the setting of significant pneumonia. The pathophysiology and treatment options for atrial fibrillation were discussed with him at great lengths. Likely we have a documented he was in normal sinus rhythm upon presentation. His baseline QTC was documented at 438 ms upon presentation. Tolerating sotalol well without ventricular arrhythmias or QT prolongation. Should he remain in atrial fibrillation overnight we will plan DC cardioversion in the a.m. He has been started on IV heparin however given his documented medication noncompliance I am reluctant to place him on long-term oral anticoagulation given its inherent risks. But we will continue IV heparin for now. Eliquis may be more appropriate for him than warfarin given the lack of laboratory follow-up. Continuous telemetry monitoring for 72 hours along with daily EKGs to monitor for QT prolongation. His electrolytes should also be monitored closely and repleted as necessary with a goal potassium level of greater than 4 magnesium greater than 2 Admission and Anticipated Discharge Date Admission Date: March 11, 2020 Subjective Patient seen and examined, chart reviewed. States that he feels tired today and still having difficulty coughing up phlegm. Denies chest pain, palpitations, lightheadedness, dizziness or syncope. Telemetry reviewed: Atrial fibrillation with rates in the 90s to low 100s. Twelve-lead EKG: Atrial fibrillation with a QTC of 437 ms, stable Review of Systems Review of Systems: All systems reviewed & are unremarkable except as noted in HPI & below Physical Exam Physical Exam: General: Awake, alert and oriented x 3. No acute distress. HEENT: Normocephalic, atraumatic. Pupils equal, round and reactive to light and accommodation. Extraocular muscles are intact. Anicteric sclera. Moist mucous membranes. Neck: No JVD. No bruit. Cardiovascular: irregularly irregular, unable to appreciate murmur, rub or gallop. Pulmonary: Clear to auscultation bilaterally. No rales, rhonchi, or wheezing. Abdomen: Bowel sounds x 4, soft. No rebound, guarding or tenderness. No organomegaly. Extremities: No clubbing, cyanosis or edema. +2 pedal pulses bilaterally. Skin: Warm and dry. Results & Data ([facility]) Vital Signs (Past 12 Hours) Vital Signs Temp Pulse Pulse Resp BP Pulse Ox Pulse Ox 03/13/20 11:01 37.0 C 90 18 114/71 97 03/13/20 07:18 37.0 C 87 18 118/77 95 03/13/20 07:00 74 03/13/20 06:00 94 03/13/20 03:00 36.6 C 79 16 115/72 97 (1) Left upper lobe pneumonia Pneumonia type: due to unspecified organism Qualified Code(s): J18.9 - Pneumonia, unspecified organism
--- NOTE | 2020-03-13 14:43 | Hospitalist Progress Note ---
Date of Service March 13, 2020 Assessment & Plan (1) Acute respiratory failure with hypoxia: Acute respiratory failure secondary to multifocal pneumonia. Pulm following and changed abx to Unasyn. Pt feels improved and has been afebrile over the last couple of days. Tm overnight was 99.8F. Cont supportive care with oxygen supplementation and symptom improvement PRN. (2) Left upper lobe pneumonia: plan as above. Leukocytosis was trending down, then went back up before starting to improve again today. It is more likely that was the result of steroids given early in the admission than he was getting clinically worse. Also 1 of 4 bottles blood cultures pulled on admission 03/11, reveals GPC. Still awaiting speciation and sensitivity. If not considered a contaminated once speciated, will plan to redraw and possible seek residential counselor from ID at [facility]. (3) Tobacco abuse: ongoing tobacco abuse, with patient stating that he quit prior to coming in. Discouraged tobacco use moving forward. (4) IV drug abuse: reports a h/o this in the past but denies recent use. (5) Atrial fibrillation with RVR: New onset atrial fibrillation. Heparin drip started. Sotalol started per Cardiology. Continues to deny any symptoms of palpitation and/or chest pain. Echo of the heart showed-normal LV size and thickness with EF of 55 to 60%, no segmental wall motion abnormality, poorly visualized right ventricle, possibly dilated, focal thickening of the posterior mitral valve annulus unchanged compared to prior study. NPO p MN in preparation for DCCV in am. (6) COPD (chronic obstructive pulmonary disease): Stable, no wheezing. Cont Anoro Ellipta per home regimen. No steroids per pulm. (7) DVT (deep venous thrombosis): heparin full Code Dispo-to home when medically stable. Lizette Villareal DO [facility] Hospitalist Admission and Anticipated Discharge Date Admission Date: March 11, 2020 Subjective reports a headache slept most of the morning and afternoon feels he is improved denies productive cough denies fevers/chills Review of Systems Review of Systems: All systems reviewed & are unremarkable except as noted in Subjective Physical Exam Physical Exam: CONSTITUTIONAL: WNWD, vitals as above, generally well- appearing EYES: pupils are round and equal bilaterally, normal conjunctivae ENT: MMM RESPIRATORY: rales are heard all throughout lung borges, no conversational dyspnea, no increased respiratory effort. CARDIOVASCULAR: regular rate and rhythm, S1 and 2 heard without murmurs, gallops or rubs, no JVD, no peripheral edema GASTROINTESTINAL: soft, nontender, nondistended MUSCULOSKELETAL: strength 5/5 throughout, head is normocephalic and atraumatic SKIN: warm and dry NEUROLOGIC: No facial palsy, no dysarthria. CN 2-12 grossly intact, no sensory deficit, normal cognition, normal speech PSYCHIATRIC: alert cooperative and oriented to person, place and time. Results & Data Results & Data ([facility]) Vital Signs (Past 12 Hours) Vital Signs Temp Pulse Pulse Resp BP Pulse Ox Pulse Ox 03/13/20 11:01 37.0 C 90 18 114/71 97 03/13/20 07:18 37.0 C 87 18 118/77 95 03/13/20 07:00 74 03/13/20 06:00 94 03/13/20 03:00 36.6 C 79 16 115/72 97 Laboratory Results Short CBC 03/13/20 Range/Units 04:20 WBC 21.62 H (4.8-10.8) K/uL Hgb 9.7 L (14.0-18.0) g/dL Hct 31.5 L (42-52) % Plt Count 588 H (130-400) K/uL BMP 03/13/20 04:20 Sodium 135 L Potassium 3.8 D Chloride 100 Carbon Dioxide 32 BUN 19 H Creatinine 0.84 Glucose 99 Calcium 8.7 Diagnostic Findings 03/13 0700 SINGLE VIEW CHEST CLINICAL HISTORY: Respiratory failure. FINDINGS: 2 AP, portable, upright chest radiographs are compared to chest x-ray and chest CT dated 03/11/2020. The examination is degraded by portable technique and patient rotation. The heart is top normal for projection noting atherosclerotic calcification of the thoracic aorta. Advanced emphysema and chronic interstitial thickening is similar to previous. Dense airspace consolidation is again seen throughout the left lung, most confluent in the left upper lobe. There is a small left pleural effusion. The right lung appears clear. No pneumothorax is seen. The skeletal structures are osteopenic. The bony thorax is grossly intact. IMPRESSION: 1. Advanced emphysema. 2. Airspace consolidation throughout the left lung and a small left pleural effusion is similar to previous. Medications Administered Current Inpatient Medications Acetaminophen (Acetaminophen 500 Mg Tab) 500 mg PO Q6H PRN PRN Reason: Pain or Fever Stop: 04/12/20 10:27 Last Admin: 03/13/20 11:38 Dose: 500 mg Documented by: Doxycycline Hyclate (Doxycycline Hyclate 100 Mg Cap) 100 mg PO BID [facility] Stop: 03/19/20 20:59 Last Admin: 03/13/20 08:36 Dose: 100 mg Documented by: Thiamine HCl 100 mg/ Syringe 10 mls @ 2 mls/min IV QAM [facility] Stop: 04/10/20 08:59 Last Admin: 03/13/20 08:36 Dose: 2 mls/min Documented by: Folic Acid 1 mg/ Syringe 10 mls @ 5 mls/min IV QAM [facility] Stop: 04/10/20 08:59 Last Admin: 03/13/20 08:36 Dose: 5 mls/min Documented by: Furosemide 40 mg/ Syringe 4 mls @ 4 mls/min IV DAILY [facility] Stop: 04/11/20 09:29 Last Admin: 03/13/20 08:36 Dose: 4 mls/min Documented by: Heparin Sodium/Dextrose (Heparin Sodium/Dextrose) 25,000 units in 500 mls @ 28 mls/hr IV .[id number] [facility]; Protocol Stop: 04/11/20 12:14 Last Admin: 03/13/20 11:37 Dose: 1,400 units/hr, 28 mls/hr Documented by: Ampicillin Sodium/Sulbactam Sodium 3,000 mg/ Sodium Chloride 108 mls @ 200 mls/hr IV Q6H [facility]; Protocol Stop: 03/20/20 15:59 Ipratropium [place] (Ipratropium [place] Neb Soln 0.02% 2.5 Ml Vial) 0.5 mg INH Q4R PRN PRN Reason: Shortness Of Breath Or Wheezing Stop: 04/10/20 06:59 Lorazepam (Lorazepam 1 Mg Tab) 1 mg PO ONE PRN; Protocol PRN Reason: EtoH Withdrawal AWSS 6-10 Multivitamins/Minerals (Cerovite Adv Formula Tab) 1 tab PO DAILY@1100 [facility] Stop: 04/10/20 10:59 Last Admin: 03/13/20 11:38 Dose: 1 tab Documented by: Pantoprazole Sodium (Pantoprazole 40 Mg Tab) 40 mg PO DAILY [facility] Stop: 09/23/20 08:59 Last Admin: 03/13/20 08:36 Dose: 40 mg Documented by: Sotalol HCl (Sotalol Hcl 80 Mg Tab) 80 mg PO BID [facility] Stop: 04/11/20 13:09 Last Admin: 03/13/20 08:37 Dose: 80 mg Documented by: Thiamine HCl (Thiamine Hcl 100 Mg Tab) 100 mg PO QAM [facility] Stop: 04/10/20 08:59 Last Admin: 03/13/20 08:36 Dose: 100 mg Documented by: Umeclidinium/Vilanterol (Umeclidinium/Vilanterol 62.5/25mcg 7 Puffs/Inhaler) 1 puffs INH QAM [facility] Stop: 04/11/20 11:59 Last Admin: 03/13/20 08:37 Dose: 1 puffs Documented by: ECG Additional Comments: afib 85bpm (1) Left upper lobe pneumonia Pneumonia type: due to unspecified organism Qualified Code(s): J18.9 - Pneumonia, unspecified organism
[2020-03-13] MEDS ORDERED: ACETAMINOPHEN 325 MG TAB PO ONE (16:49)
[2020-03-13] MEDS: IPRATROPIUM BROMIDE NEB SOLN 0.02% 2.5 ML VIAL INH PRN (17:04)
[2020-03-13] MEDS: AMPICILLIN/SULBACTAM SOD 3,000 MG in 0.9 % SODIUM CHLORIDE 100 ML IV SCH ×2 (17:47→22:43)
[2020-03-13 18:26] LABS: Partial Thromboplastin Ratio 1.1
[2020-03-14 03:26] LABS: Partial Thromboplastin Ratio 1.3; Partial Thromboplastin Time 36.2 Seconds (21.0-31.0)
[2020-03-14 03:47] LABS: Basophils # (auto) 0.01 K/uL (0-0.2); Basophils % (auto) 0.1 %; Eosinophils # (auto) 0.02 K/uL (0-0.5); Eosinophils % (auto) 0.1 %; Hematocrit (blood only) 30.4 % (42-52); Hemoglobin 9.4 g/dL (14.0-18.0); Immature Granulocytes # (auto) 0.11 K/uL (0.00-0.02); Immature Granulocytes % (auto) 0.6 %; Lymphocytes # (auto) 1.15 K/uL (1.2-3.4); Lymphocytes % (auto) 6.7 %; Mean Corpuscular Hemoglobin 25.9 pg (25-34); Mean Corpuscular Hgb Conc 30.9 g/dL (32-36); Mean Corpuscular Volume 83.7 fL (80-100); Mean Platelet Volume 7.8 fL (7.4-10.4); Monocytes # (auto) 1.37 K/uL (0.11-0.59); Neutrophils # (auto) 14.55 K/uL (1.4-6.5); Neutrophils % (auto) 84.5 %; Platelet Count 529 K/uL (130-400); RDW Coefficient of Variation 16.7 % (11.5-14.5); RDW Standard Deviation 50.9 fL (36.4-46.3); Red Blood Count 3.63 M/uL (4.7-6.1); White Blood Count 17.21 K/uL (4.8-10.8)
[2020-03-14 03:49] LABS: Hypochromasia Present; Target Cells 1+
[2020-03-14 03:53] LABS: BUN Creatinine Ratio 18.3 (10-20); Calcium 8.8 mg/dl (8.5-10.1); Creatinine Clr Calc Pharmacy 126.8 ml/min; Est GFR (African American) 121.8; Est GFR (Non-African American) 105.1; Magnesium 2.1 mg/dl (1.8-2.4); Phosphorus 2.7 mg/dl (2.5-4.9)
[2020-03-14] MEDS: AMPICILLIN/SULBACTAM SOD 3,000 MG in 0.9 % SODIUM CHLORIDE 100 ML IV SCH ×4 (04:41→20:12)
[2020-03-14] MEDS ORDERED: HEPARIN IV BOLUS 4,500 UNITS in SYRINGE 0 ML IV ONE ×2 (05:15→12:30)
[2020-03-14] MEDS: HEPARIN SODIUM/DEXTROSE 25,000 UNITS/500 ML BAG IV SCH ×4 (05:22→21:07)
[2020-03-14] MEDS: FUROSEMIDE 40 MG in SYRINGE 0 ML IV SCH (08:26)
[2020-03-14] MEDS: SOTALOL HCL 80 MG TAB PO SCH ×2 (08:26→21:01)
[2020-03-14] MEDS: UMECLIDINIUM/VILANTEROL 62.5/25MCG 7 PUFFS/INHALER INH SCH (08:27)
[2020-03-14] MEDS: THIAMINE HCL 100 MG TAB PO SCH (08:27)
[2020-03-14] MEDS: PANTOprazole 40 MG TAB PO SCH (08:27)
--- NOTE | 2020-03-14 09:03 | Electrocardiogram Report ---
Test Reason : Blood Pressure : / mmHG Vent. Rate : 093 BPM Atrial Rate : 000 BPM P-R Int : 000 ms QRS Dur : 094 ms QT Int : 342 ms P-R-T Axes : 000 069 056 degrees QTc Int : 425 ms Atrial fibrillation with premature ventricular or aberrantly conducted complexes Abnormal ECG When compared with ECG of 13-MAR-2020 06:34, No significant change was found Confirmed by Isaac Dickinson ([id number]) on 03/14/2020 9:03:13 AM Referred By: REFERRED SELF Confirmed By:Isaac Dickinson
--- NOTE | 2020-03-14 09:10 | Pulmonology Progress Note ---
Date of Service March 14, 2020 Assessment & Plan (1) Acute respiratory failure with hypoxia: Impression: 59-year-old male with history of tobacco and alcohol abuse treated for pneumonia and empyema back in December however did not complete antibiotics and returns now with dense left-sided consolidation. He is improving with decreasing leukocytosis and improving oxygen requirement. Recommendation: 1. Severe community-acquired pneumonia: Cultures are currently negative. He is currently day #4/15 antibiotics, initially treated with Zosyn and doxycycline. Vancomycin discontinued. Late positive blood culture likely represent contamination but will follow. Sputum culture no growth to date. De-escalated to Unasyn yesterday. This will facilitate transition to oral Augmentin at the time of discharge. 2 weeks antimicrobial therapy recommended and will require follow-up chest x-ray with a primary care provider in 1 to 2 weeks 2. COPD: The patient is not bronchospastic for now. No indication for steroids. Continue Anoro and as needed bronchodilators. 3. Hypoxemic respiratory failure: Continue to wean as tolerated. Patient may require oxygen to go home. Can increase activity and ambulate as tolerated. 4. Lower extremity edema: Improving with diuresis. Suspect related to grade 2 diastolic dysfunction. Continue blood pressure control and diuretics. Elevate legs as much as possible. No evidence of nephrotic syndrome or significant pulmonary hypertension. Do not think his intake and output are accurate. Continue IV Lasix with plans to transition to oral medications at discharge We will continue to follow with you. Feel free to contact us with questions or concerns (2) Left upper lobe pneumonia: Pneumonia type: due to unspecified organism Qualified Code(s): J18.9 - Pneumonia, unspecified organism (3) Pulmonary emphysema: Admission and Anticipated Discharge Date Admission Date: March 11, 2020 Subjective Patient seen and examined. EMR reviewed. The patient states that he feels a little better today. He is coughing less. Less shortness of breath. No chest pain. His edema is improving although the Lasix is causing frequent urination for him. Shown improvement in his lower extremity edema. He is n.p.o. for possible cardioversion later today Review of Systems Review of Systems: Unchanged from prior Physical Exam Eyes: PERRL, conjunctivae normal, anicteric sclerae ENMT: external ear and nose normal, oropharynx normal Neck: normal visual inspection Cardiovascular: Rate/Rhythm: regular rate and + irregularly irregular Heart Sounds: normal S1 and normal S2; no murmur Extremities: + edema Gastrointestinal (Abdomen): normal bowel sounds, soft, nontender, no hepatosplenomegaly Musculoskeletal: no cyanosis or clubbing, extremities motor strength 5/5 Skin: no rashes, warm and dry Neurologic: PERRL, EOMI, accommodation nl, no face palsy, no dysarthria Results & Data Results & Data ([facility]) Vital Signs (Past 12 Hours) Vital Signs Temp Pulse Pulse Pulse Resp BP Pulse Ox 03/14/20 07:30 37.6 C H 92 H 22 124/79 93 03/14/20 04:19 37.3 C 91 H 20 120/77 96 03/14/20 00:00 85 03/13/20 23:59 37.2 C 84 18 123/66 95 Laboratory Results 03/14/20 02:22 03/14/20 02:22 Diagnostic Findings No new films PG Care Time/CCT Total # of Minutes Spent Total Time Spent with Patient: Total time spent is greater than 50% in coordination of care (as documented) at patient's floor/unit and/or counseling patient: Coding Level of Care Code 62432 Subseq Hosp Care Lvl 2 Diagnoses Acute respiratory failure with hypoxia J96.01 Left upper lobe pneumonia J18.9 Pneumonia type: due to unspecified organism Pulmonary emphysema J43.9
[2020-03-14 11:47] LABS: Partial Thromboplastin Ratio 1.4; Partial Thromboplastin Time 39.2 Seconds (21.0-31.0)
[2020-03-14] MEDS ORDERED: HEPARIN IV BOLUS 3,000 UNITS in SYRINGE 0 ML IV STA (12:07)
[2020-03-14] MEDS ORDERED: fentaNYL citrate 100 MCG/2 ML VIAL ONE (13:02)
[2020-03-14] MEDS ORDERED: MIDAZOLAM HCL 1 MG/ML 2ML VIAL ONE (13:03)
--- NOTE | 2020-03-14 13:07 | History & Physical Bridge Note ---
Date of Service March 14, 2020 History & Physical Bridge Note I have examined the patient, reviewed the History & Physical and in the interval since the performance of the History & Physical I have noted the following changes of clinical significance: no changes noted
--- NOTE | 2020-03-14 13:07 | Pre Anesthesia Assessment ---
Date of Service March 14, 2020 Pre Sedation Assessment Vital Signs Temp Pulse Pulse Pulse Resp BP Pulse Ox 03/14/20 11:29 37.6 C H 79 16 122/66 96 03/14/20 07:30 37.6 C H 92 H 22 124/79 93 03/14/20 04:19 37.3 C 91 H 20 120/77 96 03/14/20 00:00 85 03/13/20 23:59 37.2 C 84 18 123/66 95 03/13/20 18:59 36.9 C 88 18 126/74 91 03/13/20 17:04 93 H 18 91 03/13/20 15:04 37.4 C 82 19 119/73 94 Pre-Sedation Airway Assessment Smoking Status: Current every day smoker Short, Thick Neck: No Thyromental Distance: > or= 3.5 Finger Breadths Oral Cavity: + WNL Mallampati Class: III ASA: ASA2 NPO Status Date of Last Intake of Fluids: 03/14/20 Time of Last Intake of Fluids: 07:00 Date of Last Intake of Solid Food: 03/13/20 Time of Last Intake of Solid Foods: 21:00 Notes The planned sedation has been discussed with the patient. Informed Consent was obtained. I have identified the patient, determined the appropriateness of sedation and have assessed the patient immediately prior to the procedure. All medicine(s) and interventions are by my order.
[2020-03-14] MEDS ORDERED: ATROPINE SULFATE 0.1 MG/ML 10ML SYR IV ONE (13:15)
[2020-03-14] MEDS: CEROVITE ADV FORMULA TAB PO SCH (13:59)
--- NOTE | 2020-03-14 14:06 | Post Anesthesia Assessment ---
Date of Service March 14, 2020 Post Sedation Assessment Vital Signs Temp Pulse Pulse Pulse Resp BP Pulse Ox 03/14/20 13:30 75 20 121/76 99 03/14/20 13:20 71 20 133/85 95 03/14/20 13:18 84 20 127/75 93 03/14/20 13:15 78 20 112/74 93 03/14/20 11:29 37.6 C H 79 16 122/66 96 03/14/20 07:30 37.6 C H 92 H 22 124/79 93 03/14/20 04:19 37.3 C 91 H 20 120/77 96 03/14/20 00:00 85 03/13/20 23:59 37.2 C 84 18 123/66 95 03/13/20 18:59 36.9 C 88 18 126/74 91 03/13/20 17:04 93 H 18 91 03/13/20 15:04 37.4 C 82 19 119/73 94 Recovery Score Activity: Moves 4 extremities Respiration: Deep Breath/Cough Circulation: +/-20% PreAnes Value Consciousness: Arouseable (by name) Oxygen Saturation: <90% w/ supp O2 Post Anesthesia Score: 7 Discharge Sedation Level of Care: Fast Track Phase II Post Sedation Plan On clinical assessment, the patient appears to have tolerated the sedation without complications. Patient is recovering as anticipated. Patient will continue to be monitored by nursing and may be discharged when sedation discharge criteria are met per below protocol. Upon Completions of procedure up to 15 minutes continue every 5 minute vital signs and the P.A.R. score; then discharge to a Phase I or Fast Track to Phase II per the following guidelines: * Discharge Patient to appropriate Phase II area if PAR is 8 or greater or return to pre- procedure baseline. The post - procedure orders will be as directed. * If PAR score is less than 8 or not return to pre-procedure baseline then patient will follow Phase I monitoring till PAR is reached for Phase II. The Phase I may be done in procedure room or may call to secure a Phase I area. * If naloxone or flumazenil are used for reversal, hold in Phase I for continued monitoring from when last reversal dose was given for a minimum of 60 minutes or longer pending the nurse and/or physician discretion of patient condition before discharge to Phase II. Please call the Sedation Physician to re-evaluate and complete post-note for discharge to Phase II area. Do NOT discharge from procedure sedation or Phase 1 until post- sedation evaluation note is complete by procedure /sedation MD Sedation Discharge Instructions to be given to the patient at discharge to home.
--- NOTE | 2020-03-14 14:09 | Cardioversion ---
Date of Service March 14, 2020 Electrical Cardioversion Rpt Electrical Cardioversion Report Informed consent obtained. Pt prepped. Adequate moderate sedation achieved with a total of Versed 3 mg and Fentanyl 100 mcg 360 J of synchronized energy was delivered with successful cardioversion to normal sinus rhythm.. Patient tolerated well. Recovered per protocol. Start time: 1314 Stop time: 1320 Plan: Return to telemetry. Continue sotalol. We will transition heparin to Eliquis today.
--- NOTE | 2020-03-14 14:11 | Cardiology Progress Note ---
Date of Service March 14, 2020 Assessment & Plan (1) Atrial fibrillation with RVR: (2) Acute respiratory failure with hypoxia: (3) Left upper lobe pneumonia: (4) COPD with acute exacerbation: (5) Pulmonary emphysema: (6) Tobacco abuse: (7) IV drug abuse: (8) Noncompliance with medication regimen: It is not surprising the patient will lapsed into atrial fibrillation given the clinical context of hypoxic respiratory failure in the setting of significant pneumonia. Status post successful DC cardioversion to normal sinus rhythm. QTC remains well controlled. Will discontinue heparin now and initiate Eliquis this evening. Once again, the need for medication adherence was stressed to the patient. As was the concern for bleeding with systemic anticoagulation. Admission and Anticipated Discharge Date Admission Date: March 11, 2020 Subjective Patient seen and examined, chart reviewed. States he still feels horrible secondary to the pneumonia but improving daily. Still with cough but denies chest pain, shortness of breath, palpitations, lightheadedness, dizziness or syncope. Telemetry reviewed: Atrial fibrillation rate controlled. Review of Systems Review of Systems: All systems reviewed & are unremarkable except as noted in HPI & below Physical Exam Physical Exam: General: Awake, alert and oriented x 3. No acute distress. HEENT: Normocephalic, atraumatic. Pupils equal, round and reactive to light and accommodation. Extraocular muscles are intact. Anicteric sclera. Moist mucous membranes. Neck: No JVD. No bruit. Cardiovascular: irregularly irregular, unable to appreciate murmur, rub or gallop. Pulmonary: Clear to auscultation bilaterally. No rales, rhonchi, or wheezing. Abdomen: Bowel sounds x 4, soft. No rebound, guarding or tenderness. No organomegaly. Extremities: No clubbing, cyanosis or edema. +2 pedal pulses bilaterally. Skin: Warm and dry. Results & Data ([facility]) Vital Signs (Past 12 Hours) Vital Signs Temp Pulse Pulse Pulse Resp BP Pulse Ox 03/14/20 13:30 75 20 121/76 99 03/14/20 13:20 71 20 133/85 95 03/14/20 13:18 84 20 127/75 93 03/14/20 13:15 78 20 112/74 93 03/14/20 11:29 37.6 C H 79 16 122/66 96 03/14/20 07:30 37.6 C H 92 H 22 124/79 93 03/14/20 04:19 37.3 C 91 H 20 120/77 96 (1) Left upper lobe pneumonia Pneumonia type: due to unspecified organism Qualified Code(s): J18.9 - Pneumonia, unspecified organism
--- NOTE | 2020-03-14 16:19 | Electrocardiogram Report ---
Test Reason : Blood Pressure : / mmHG Vent. Rate : 072 BPM Atrial Rate : 072 BPM P-R Int : 194 ms QRS Dur : 096 ms QT Int : 404 ms P-R-T Axes : 072 054 056 degrees QTc Int : 442 ms Poor data quality, interpretation may be adversely affected Sinus rhythm with Premature supraventricular complexes and with occasional Premature ventricular comp lexes Left atrial enlargement Borderline ECG When compared with ECG of 14-MAR-2020 07:22, Sinus rhythm has replaced Atrial fibrillation Confirmed by Isaac Dickinson ([id number]) on 03/14/2020 4:19:22 PM Referred By: REFERRED SELF Confirmed By:Isaac Dickinson
--- NOTE | 2020-03-14 16:39 | Hospitalist Progress Note ---
Date of Service March 14, 2020 Assessment & Plan (1) Acute respiratory failure with hypoxia: Acute respiratory failure secondary to multifocal pneumonia. Pulm following and changed abx to Unasyn. Pt feels improved and has been afebrile over the last couple of days. Tm overnight was 99.8F. Cont supportive care with oxygen supplementation and symptom improvement PRN. (2) Left upper lobe pneumonia: plan as above. Leukocytosis was trending down, then went back up before starting to improve again today. It is more likely that was the result of steroids given early in the admission than he was getting clinically worse. Also 1 of 4 bottles blood cultures pulled on admission 03/11, reveals GPC. Still awaiting speciation and sensitivity. If not considered a contaminated once speciated, will plan to redraw and possible seek mortgage loan counselor from ID at [facility]. (3) Tobacco abuse: ongoing tobacco abuse, with patient stating that he quit prior to coming in. Discouraged tobacco use moving forward. (4) IV drug abuse: reports a h/o this in the past but denies recent use. (5) Atrial fibrillation with RVR: New onset atrial fibrillation. Heparin drip started. Sotalol started per Cardiology. Continues to deny any symptoms of palpitation and/or chest pain. Echo of the heart showed-normal LV size and thickness with EF of 55 to 60%, no segmental wall motion abnormality, poorly visualized right ventricle, possibly dilated, focal thickening of the posterior mitral valve annulus unchanged compared to prior study. DCCV today with conversion to sinus. Heparin drip was switched to Eliquis, which he will need to continued for at least one month or until a Cardiology follow-up. (6) COPD (chronic obstructive pulmonary disease): Stable, no wheezing. Cont Anoro Ellipta per home regimen. No steroids per pulm. (7) DVT (deep venous thrombosis): heparin full Code Dispo-to home when medically stable. Lizette Villareal DO [facility] Hospitalist Admission and Anticipated Discharge Date Admission Date: March 11, 2020 Subjective States he is "fine" s/p DCCV earlier today with successful conversion to sinus rhythm. Reports significant fatigue. Denies chest pain and improvement in breathing overall. Reports a headache and requests Tylenol. Review of Systems Review of Systems: All systems reviewed & are unremarkable except as noted in Subjective Physical Exam Physical Exam: CONSTITUTIONAL: WNWD, vitals as above, generally appears fatigued EYES: pupils are round and equal bilaterally, normal conjunctivae ENT: MMM RESPIRATORY: Lungs are more clear throughout all lung borges, no conversational dyspnea, no increased respiratory effort. CARDIOVASCULAR: regular rate and rhythm, S1 and 2 heard without murmurs, gallops or rubs, no JVD, no peripheral edema GASTROINTESTINAL: soft, nontender, nondistended MUSCULOSKELETAL: strength 5/5 throughout, head is normocephalic and atraumatic SKIN: warm and dry NEUROLOGIC: was very tired lying on his side so an incomplete evaluation had to be done. Normal cognition and speech. No gross focal deficits. PSYCHIATRIC: alert cooperative and oriented Results & Data Results & Data ([facility]) Vital Signs (Past 12 Hours) Vital Signs Temp Pulse Pulse Pulse Resp BP Pulse Ox 03/14/20 15:24 36.7 C 80 20 105/66 95 03/14/20 15:22 75 03/14/20 13:30 75 20 121/76 99 03/14/20 13:20 71 20 133/85 95 03/14/20 13:18 84 20 127/75 93 03/14/20 13:15 78 20 112/74 93 03/14/20 11:29 37.6 C H 79 16 122/66 96 03/14/20 07:30 37.6 C H 92 H 22 124/79 93 Laboratory Results Short CBC 03/14/20 Range/Units 02:22 WBC 17.21 H (4.8-10.8) K/uL Hgb 9.4 L (14.0-18.0) g/dL Hct 30.4 L (42-52) % Plt Count 529 H (130-400) K/uL BMP 03/14/20 02:22 Sodium 138 Potassium 4.0 Chloride 102 Carbon Dioxide 34 H BUN 12 Creatinine 0.66 Glucose 115 H Calcium 8.8 Medications Administered Current Inpatient Medications Acetaminophen (Acetaminophen 325 Mg Tab) 650 mg PO Q6H PRN PRN Reason: Pain or Fever Stop: 04/12/20 10:27 Furosemide 40 mg/ Syringe 4 mls @ 4 mls/min IV DAILY CHRISTIANO Stop: 04/11/20 09:29 Last Admin: 03/14/20 08:26 Dose: 4 mls/min Documented by: Heparin Sodium/Dextrose (Heparin Sodium/Dextrose) 25,000 units in 500 mls @ 37 mls/hr IV .[id number] [facility]; Protocol Stop: 04/11/20 12:14 Last Titration: 03/14/20 14:53 Dose: 1,850 units/hr, 37 mls/hr Documented by: Ampicillin Sodium/Sulbactam Sodium 3,000 mg/ Sodium Chloride 108 mls @ 200 mls/hr IV Q6H [facility]; Protocol Stop: 03/20/20 15:59 Last Infusion: 03/14/20 16:12 Dose: Infused Documented by: Ipratropium Porter (Ipratropium Porter Neb Soln 0.02% 2.5 Ml Vial) 0.5 mg INH Q4R PRN PRN Reason: Shortness Of Breath Or Wheezing Stop: 04/10/20 06:59 Last Admin: 03/13/20 17:04 Dose: 0.5 mg Documented by: Lorazepam (Lorazepam 1 Mg Tab) 1 mg PO ONE PRN; Protocol PRN Reason: EtoH Withdrawal AWSS 6-10 Multivitamins/Minerals (Cerovite Adv Formula Tab) 1 tab PO DAILY@1100 [facility] Stop: 04/10/20 10:59 Last Admin: 03/14/20 13:59 Dose: Not Given Documented by: Pantoprazole Sodium (Pantoprazole 40 Mg Tab) 40 mg PO DAILY [facility] Stop: 04/10/20 08:59 Last Admin: 03/14/20 08:27 Dose: 40 mg Documented by: Sotalol HCl (Sotalol Hcl 80 Mg Tab) 80 mg PO BID [facility] Stop: 04/11/20 13:09 Last Admin: 03/14/20 08:26 Dose: 80 mg Documented by: Thiamine HCl (Thiamine Hcl 100 Mg Tab) 100 mg PO QAM [facility] Stop: 04/10/20 08:59 Last Admin: 03/14/20 08:27 Dose: 100 mg Documented by: Umeclidinium/Vilanterol (Umeclidinium/Vilanterol 62.5/25mcg 7 Puffs/Inhaler) 1 puffs INH QAM [facility] Stop: 04/11/20 11:59 Last Admin: 03/14/20 08:27 Dose: 1 puffs Documented by: (1) Left upper lobe pneumonia Pneumonia type: due to unspecified organism Qualified Code(s): J18.9 - Pneumonia, unspecified organism
[2020-03-14] MEDS ORDERED: ACETAMINOPHEN 325 MG TAB PO ONE (20:09)
[2020-03-14] MEDS: APIXABAN 5 MG TABLET PO SCH (21:02)
[2020-03-15] MEDS: AMPICILLIN/SULBACTAM SOD 3,000 MG in 0.9 % SODIUM CHLORIDE 100 ML IV SCH ×4 (03:07→21:08)
--- NOTE | 2020-03-15 04:53 | Communication Note ---
Date of Service: March 15, 2020 Made aware by RN of second bottle of blood cultures growing gram-positive cocci in clusters. IV Vancomycin for now for GPC bacteremia in the setting of pneumonia in a patient with IVDU history Include repeat blood cultures with a.m. blood work today. Will relay to AM provider.
[2020-03-15] MEDS ORDERED: VANCOMYCIN CONSULT ACTIVE PRN (04:54)
[2020-03-15] MEDS ORDERED: VANCOMYCIN HCL 2,000 MG in SODIUM CHLORIDE 0.9% 500 ML IV ONE (05:00)
[2020-03-15] MEDS ORDERED: COUGH DROP (SUGAR FREE) LOZ 24 LOZ/1 BOX BUCCAL ONE (05:28)
[2020-03-15] MEDS: HEPARIN SODIUM/DEXTROSE 25,000 UNITS/500 ML BAG IV SCH (06:57)
[2020-03-15 07:46] LABS: Eosinophils # (auto) 0.02 K/uL (0-0.5); Eosinophils % (auto) 0.1 %; Hematocrit (blood only) 30.7 % (42-52); Hemoglobin 9.4 g/dL (14.0-18.0); Immature Granulocytes # (auto) 0.09 K/uL (0.00-0.02); Immature Granulocytes % (auto) 0.6 %; Lymphocytes # (auto) 1.04 K/uL (1.2-3.4); Lymphocytes % (auto) 7.2 %; Mean Corpuscular Hemoglobin 25.6 pg (25-34); Mean Corpuscular Hgb Conc 30.6 g/dL (32-36); Mean Corpuscular Volume 83.7 fL (80-100); Mean Platelet Volume 7.9 fL (7.4-10.4); Monocytes # (auto) 0.79 K/uL (0.11-0.59); Monocytes % (auto) 5.4 %; Neutrophils # (auto) 12.58 K/uL (1.4-6.5); Neutrophils % (auto) 86.7 %; Platelet Count 627 K/uL (130-400); RDW Coefficient of Variation 16.8 % (11.5-14.5); RDW Standard Deviation 51.4 fL (36.4-46.3); Red Blood Count 3.67 M/uL (4.7-6.1); White Blood Count 14.52 K/uL (4.8-10.8)
[2020-03-15] MEDS: SOTALOL HCL 80 MG TAB PO SCH ×2 (08:08→22:18)
[2020-03-15] MEDS: APIXABAN 5 MG TABLET PO SCH ×2 (08:08→22:32)
[2020-03-15] MEDS: THIAMINE HCL 100 MG TAB PO SCH (08:08)
[2020-03-15] MEDS: PANTOprazole 40 MG TAB PO SCH (08:08)
[2020-03-15] MEDS: UMECLIDINIUM/VILANTEROL 62.5/25MCG 7 PUFFS/INHALER INH SCH (08:08)
[2020-03-15] MEDS: FUROSEMIDE 40 MG in SYRINGE 0 ML IV SCH (08:09)
--- NOTE | 2020-03-15 08:41 | Electrocardiogram Report ---
Test Reason : Blood Pressure : / mmHG Vent. Rate : 071 BPM Atrial Rate : 071 BPM P-R Int : 196 ms QRS Dur : 104 ms QT Int : 390 ms P-R-T Axes : 068 078 076 degrees QTc Int : 423 ms Sinus rhythm with occasional Premature ventricular complexes T-wave inversion in Anteroseptal leads , consider ischemia Abnormal ECG When compared with ECG of 14-MAR-2020 13:25, Premature supraventricular complexes are no longer Present T-wave inversion in Anteroseptal leads now present Confirmed by Isaac Dickinson ([id number]) on 03/15/2020 8:41:07 AM Referred By: REFERRED SELF Confirmed By:Isaac Dickinson
[2020-03-15 09:03] LABS: BUN Creatinine Ratio 19.1 (10-20); Calcium 8.6 mg/dl (8.5-10.1); Creatinine Clr Calc Pharmacy 167.3 ml/min; Est GFR (African American) 136.5; Est GFR (Non-African American) 117.8; Potassium 3.3 mmol/L (3.5-5.1)
--- NOTE | 2020-03-15 09:22 | Cardiology Progress Note ---
Date of Service March 15, 2020 Assessment & Plan (1) Atrial fibrillation with RVR: (2) Acute respiratory failure with hypoxia: (3) Left upper lobe pneumonia: (4) COPD with acute exacerbation: (5) Pulmonary emphysema: (6) Tobacco abuse: (7) IV drug abuse: (8) Noncompliance with medication regimen: It is not surprising the patient will lapsed into atrial fibrillation given the clinical context of hypoxic respiratory failure in the setting of significant pneumonia. Status post successful DC cardioversion to normal sinus rhythm. QTC remains well controlled. 423 ms today. He has been transitioned to Eliquis. Okay to DC home from a cardiac standpoint on current doses of sotalol and Eliquis. My office will call to arrange follow-up in 1 month. Once again, the need for medication adherence was stressed to the patient. As was the concern for bleeding with systemic anticoagulation. Admission and Anticipated Discharge Date Admission Date: March 11, 2020 Subjective Patient seen and examined, chart reviewed. States he still feels poorly due to the pneumonia but denies any cardiac complaints of chest pain, palpitations, lightheadedness, dizziness or syncope. Telemetry reviewed: Atrial fibrillation rate controlled. Twelve-lead EKG: Normal sinus rhythm with a QTC of 423 ms. Review of Systems Review of Systems: All systems reviewed & are unremarkable except as noted in HPI & below Physical Exam Physical Exam: General: Awake, alert and oriented x 3. No acute distress. HEENT: Normocephalic, atraumatic. Pupils equal, round and reactive to light and accommodation. Extraocular muscles are intact. Anicteric sclera. Moist mucous membranes. Neck: No JVD. No bruit. Cardiovascular: Regular. No S3, positive S1 and S2, S4 is present. No significant murmurs or rubs. Pulmonary: Clear to auscultation bilaterally. Scattered rhonchi on the right Abdomen: Bowel sounds x 4, soft. No rebound, guarding or tenderness. No organomegaly. Extremities: No clubbing, cyanosis or edema. +2 pedal pulses bilaterally. Skin: Warm and dry. ENMT: Mallampati Class: III Results & Data ([facility]) Vital Signs (Past 12 Hours) Vital Signs Temp Pulse Pulse Resp BP Pulse Ox 03/15/20 07:57 36.8 C 82 18 115/74 96 03/15/20 03:32 36.6 C 74 18 111/66 97 03/14/20 23:37 72 03/14/20 23:02 36.9 C 69 18 108/51 L 94 (1) Left upper lobe pneumonia Pneumonia type: due to unspecified organism Qualified Code(s): J18.9 - Pneumonia, unspecified organism
--- NOTE | 2020-03-15 09:53 | Pulmonology Progress Note ---
Date of Service March 15, 2020 Assessment & Plan (1) Acute respiratory failure with hypoxia: Impression: 59-year-old male with history of tobacco and alcohol abuse treated for pneumonia and empyema back in December however did not complete antibiotics and returns now with dense left-sided consolidation. He is improving with decreasing leukocytosis and improving oxygen requirement. Recommendation: 1. Severe community-acquired pneumonia: Cultures are currently negative. He is currently day #5/15 antibiotics, initially treated with Zosyn and doxycycline. Vancomycin discontinued. Late positive blood cultures with strep intermedius likely represent contamination but will follow. Follow-up cultures are pending. He received vancomycin last night but I do not feel that this needs to be continued. Sputum culture no growth to date. Currently on Unasyn. This will facilitate transition to oral Augmentin at the time of discharge. 2 weeks antimicrobial therapy recommended and will require follow-up chest x-ray with a primary care provider in 1 to 2 weeks 2. COPD: The patient is not bronchospastic for now. No indication for steroids. Continue Anoro and as needed bronchodilators. 3. Hypoxemic respiratory failure: Continue to wean as tolerated. Patient may require oxygen to go home. Should increase activity and ambulate as tolerated. 4. Lower extremity edema: Improving with diuresis. Suspect related to grade 2 diastolic dysfunction. Continue blood pressure control and diuretics. Elevate legs as much as possible. No evidence of nephrotic syndrome or significant pulmonary hypertension. Continue IV Lasix with plans to transition to oral medications at discharge Patient clinically improved and may be approaching discharge. Disposition per primary service. (2) Left upper lobe pneumonia: Pneumonia type: due to unspecified organism Qualified Code(s): J18.9 - Pneumonia, unspecified organism (3) Pulmonary emphysema: Admission and Anticipated Discharge Date Admission Date: March 11, 2020 Subjective Patient seen and examined. EMR reviewed. Bedside nurse. Patient reports that he feels clinically better today. He is coughing expectora te some phlegm. He is unclear whether he is experiencing any hemoptysis. He is not had any chest pain or palpitations. He is tolerating a diet. He notes some continued improvement in his lower extremity edema. No chest pain or palpitations. The patient underwent successful cardioversion yesterday. EKG was normal sinus rhythm this morning. Review of Systems Review of Systems: Unchanged from prior Physical Exam Eyes: PERRL, conjunctivae normal, anicteric sclerae ENMT: external ear and nose normal, oropharynx normal Neck: normal visual inspection Cardiovascular: Rate/Rhythm: regular rate and + irregularly irregular Heart Sounds: normal S1 and normal S2; no murmur Extremities: + edema Gastrointestinal (Abdomen): normal bowel sounds, soft, nontender, no hepatosplenomegaly Musculoskeletal: no cyanosis or clubbing, extremities motor strength 5/5 Skin: no rashes, warm and dry Neurologic: PERRL, EOMI, accommodation nl, no face palsy, no dysarthria Results & Data Results & Data ([facility]) Vital Signs (Past 12 Hours) Vital Signs Temp Pulse Pulse Resp BP Pulse Ox 03/15/20 07:57 36.8 C 82 18 115/74 96 03/15/20 03:32 36.6 C 74 18 111/66 97 03/14/20 23:37 72 03/14/20 23:02 36.9 C 69 18 108/51 L 94 Laboratory Results 03/15/20 07:14 03/15/20 07:14 Blood cultures from 824 growing strep intermedius, likely contaminant and follow-up on cultures are pending. Diagnostic Findings No new imaging PG Care Time/CCT Total # of Minutes Spent Total Time Spent with Patient: Total time spent is greater than 50% in coordination of care (as documented) at patient's floor/unit and/or counseling patient: Coding Level of Care Code 88196 Subseq Hosp Care Lvl 2 Diagnoses Acute respiratory failure with hypoxia J96.01 Left upper lobe pneumonia J18.9 Pneumonia type: due to unspecified organism Pulmonary emphysema J43.9
[2020-03-15] MEDS: CEROVITE ADV FORMULA TAB PO SCH (10:29)
[2020-03-15] MEDS: POTASSIUM CHLORIDE 20 MEQ TABCR PO SCH ×2 (12:29→16:58)
--- NOTE | 2020-03-15 16:39 | Hospitalist Progress Note ---
Date of Service March 15, 2020 Assessment & Plan (1) Acute respiratory failure with hypoxia: Acute respiratory failure secondary to multifocal pneumonia. Cont Unasyn for now. Remains afebrile overnight and improving. Cont supportive care with oxygen supplementation and symptom improvement PRN. (2) Left upper lobe pneumonia: WBC down to 14K, cont Unasyn and titrate off supplemental oxygen as he can tolerate. (3) Tobacco abuse: ongoing tobacco abuse, with patient stating that he quit prior to coming in. Discouraged tobacco use moving forward. (4) IV drug abuse: reports a h/o this in the past but denies recent use. (5) Atrial fibrillation with RVR: New onset atrial fibrillation. Heparin drip started. Sotalol started per Cardiology. Echo of the heart showed-normal LV size and thickness with EF of 55 to 60%, no segmental wall motion abnormality, poorly visualized right ventricle, possibly dilated, focal thickening of the posterior mitral valve annulus unchanged compared to prior study. DCCV on 03/14 with conversion to sinus. Heparin drip was switched to Eliquis, which he will need to continued for at least one month or until a Cardiology follow-up. (6) COPD (chronic obstructive pulmonary disease): Stable, no wheezing. Cont Anoro Ellipta per home regimen. No steroids per pulm. (7) Bacteremia: GPCs in blood, although possible contaminant. Per ID, repeat blood cultures and monitor for positivity. If yes, consider EDI. If no, cont Unasyn with conversion to Augmentin for 3-4 weeks and follow-up accordingly. (8) DVT (deep venous thrombosis): Eliquis full Code Dispo-to home when medically stable. Lizette Villareal DO [facility] Hospitalist Admission and Anticipated Discharge Date Admission Date: March 11, 2020 Subjective reports feeling better overall. No coughing. No fevers. Tolerating PO. Positive blood cultures overnight and vancomycin added. [facility] ID consult. Receommend await repeat blood cultures an if positive consider EDI. Pt is s/p DCCV yesterday and is doing well, still in sinus rhythm Review of Systems Review of Systems: All systems reviewed & are unremarkable except as noted in Subjective Physical Exam Physical Exam: CONSTITUTIONAL: WNWD, vitals as above, generally appears well EYES: pupils are round and equal bilaterally, normal conjunctivae ENT: MMM RESPIRATORY: Lungs are clear throughout all lung borges, no conversational dyspnea, no increased respiratory effort. CARDIOVASCULAR: regular rate and rhythm, S1 and 2 heard without murmurs, gallops or rubs, no JVD, no peripheral edema GASTROINTESTINAL: soft, nontender, nondistended MUSCULOSKELETAL: strength 5/5 throughout, head is normocephalic and atraumatic. He can move around the room independently. SKIN: warm and dry NEUROLOGIC: CN 2-12 grossly normal. No gross focal deficits. PSYCHIATRIC: alert cooperative and oriented Results & Data Results & Data ([facility]) Vital Signs (Past 12 Hours) Vital Signs Temp Pulse Resp BP BP Pulse Ox 03/15/20 15:56 37.1 C 71 20 118/75 96 03/15/20 11:27 37.7 C H 69 18 130/74 98 03/15/20 07:57 36.8 C 82 18 115/74 96 Laboratory Results Short CBC 03/15/20 Range/Units 07:14 WBC 14.52 H (4.8-10.8) K/uL Hgb 9.4 L (14.0-18.0) g/dL Hct 30.7 L (42-52) % Plt Count 627 H (130-400) K/uL BMP 03/15/20 07:14 Sodium 136 Potassium 3.3 L D Chloride 100 Carbon Dioxide 32 BUN 10 Creatinine 0.50 L Glucose 112 H Calcium 8.6 Medications Administered Current Inpatient Medications Acetaminophen (Acetaminophen 325 Mg Tab) 650 mg PO Q6H PRN PRN Reason: Pain or Fever Stop: 04/12/20 10:27 Apixaban (Apixaban 5 Mg Tablet) 5 mg PO BID [facility] Stop: 04/13/20 20:59 Last Admin: 03/15/20 08:08 Dose: 5 mg Documented by: Furosemide 40 mg/ Syringe 4 mls @ 4 mls/min IV DAILY [facility] Stop: 04/11/20 09:29 Last Admin: 03/15/20 08:09 Dose: 4 mls/min Documented by: Ampicillin Sodium/Sulbactam Sodium 3,000 mg/ Sodium Chloride 108 mls @ 200 mls/hr IV Q6H [facility]; Protocol Stop: 03/20/20 15:59 Last Admin: 03/15/20 16:13 Dose: 200 mls/hr Documented by: Vancomycin HCl 1,250 mg/ (Sodium Chloride) 275 mls @ 125 mls/hr IV Q8H [facility] Stop: 03/29/20 15:29 Ipratropium [place] (Ipratropium [place] Neb Soln 0.02% 2.5 Ml Vial) 0.5 mg INH Q4R PRN PRN Reason: Shortness Of Breath Or Wheezing Stop: 04/10/20 06:59 Last Admin: 03/13/20 17:04 Dose: 0.5 mg Documented by: Lorazepam (Lorazepam 1 Mg Tab) 1 mg PO ONE PRN; Protocol PRN Reason: EtoH Withdrawal AWSS 6-10 Miscellaneous Information (Vancomycin Consult Active) 1 ea N/A UD PRN PRN Reason: consult Stop: 04/14/20 04:53 Multivitamins/Minerals (Cerovite Adv Formula Tab) 1 tab PO DAILY@1100 [facility] Stop: 04/10/20 10:59 Last Admin: 03/15/20 10:29 Dose: 1 tab Documented by: Pantoprazole Sodium (Pantoprazole 40 Mg Tab) 40 mg PO DAILY [facility] Stop: 04/10/20 08:59 Last Admin: 03/15/20 08:08 Dose: 40 mg Documented by: Sotalol HCl (Sotalol Hcl 80 Mg Tab) 80 mg PO BID [facility] Stop: 04/11/20 13:09 Last Admin: 03/15/20 08:08 Dose: 80 mg Documented by: Thiamine HCl (Thiamine Hcl 100 Mg Tab) 100 mg PO QAM [facility] Stop: 04/10/20 08:59 Last Admin: 03/15/20 08:08 Dose: 100 mg Documented by: Umeclidinium/Vilanterol (Umeclidinium/Vilanterol 62.5/25mcg 7 Puffs/Inhaler) 1 puffs INH QAM [facility] Stop: 04/11/20 11:59 Last Admin: 03/15/20 08:08 Dose: 1 puffs Documented by: (1) Left upper lobe pneumonia Pneumonia type: due to unspecified organism Qualified Code(s): J18.9 - Pneumonia, unspecified organism
[2020-03-15] MEDS: VANCOMYCIN HCL 1,250 MG in SODIUM CHLORIDE 0.9% 250 ML IV SCH ×2 (16:59→22:32)
[2020-03-15] MEDS: ACETAMINOPHEN 325 MG TAB PO PRN (17:51)
[2020-03-16] MEDS: AMPICILLIN/SULBACTAM SOD 3,000 MG in 0.9 % SODIUM CHLORIDE 100 ML IV SCH ×4 (05:20→21:44)
[2020-03-16] MEDS ORDERED: VANCOMYCIN TROUGH ONE (07:00)
[2020-03-16 07:23] LABS: BUN Creatinine Ratio 15.4 (10-20); Calcium 8.7 mg/dl (8.5-10.1); Creatinine Clr Calc Pharmacy 157.9 ml/min; Est GFR (African American) 133.3; Magnesium 2.2 mg/dl (1.8-2.4); Potassium 3.6 mmol/L (3.5-5.1)
--- NOTE | 2020-03-16 07:48 | Pulmonology Progress Note ---
Date of Service March 16, 2020 Assessment & Plan (1) Acute respiratory failure with hypoxia: Impression: 59-year-old male with history of tobacco and alcohol abuse treated for pneumonia and empyema back in December however did not complete antibiotics and returns now with dense left-sided consolidation. He is improving with decreasing leukocytosis and improving oxygen requirement. Recommendation: 1. Severe community-acquired pneumonia: Cultures are currently negative. He is currently day #6/15 antibiotics, initially treated with Zosyn and doxycycline. Vancomycin discontinued. Late positive blood cultures with strep intermedius likely represent contamination but will follow. ID now consulted through [facility]. Defer antibiotics to them. Patient will require follow-up chest res olution 2. COPD: The patient is not bronchospastic for now. No indication for steroids. Continue Anoro and as needed bronchodilators. Smoking cessation recommended 3. Hypoxemic respiratory failure: Continue to wean as tolerated. Patient may require oxygen to go home. Should increase activity and ambulate as tolerated. 4. Lower extremity edema: Improving with diuresis. Suspect related to grade 2 diastolic dysfunction. Continue blood pressure control and diuretics. Will transition to oral Lasix Patient clinically improved and may be approaching discharge. Disposition per primary service. (2) Left upper lobe pneumonia: Pneumonia type: due to unspecified organism Qualified Code(s): J18.9 - Pneumonia, unspecified organism (3) Pulmonary emphysema: Admission and Anticipated Discharge Date Admission Date: March 11, 2020 Subjective Patient seen and examined. EMR reviewed patient's was transferred out of off telemetry and is doing well. Remains cough is much less productive sputum is copious and thick. Moves ambulating to the restroom. Is tolerating a diet. Review of Systems Review of Systems: Unchanged from prior Physical Exam Eyes: PERRL, conjunctivae normal, anicteric sclerae ENMT: external ear and nose normal, oropharynx normal Neck: normal visual inspection Cardiovascular: Rate/Rhythm: regular rate Heart Sounds: normal S1 and nor mal S2; no murmur Extremities: + edema Gastrointestinal (Abdomen): normal bowel sounds, soft, nontender, no hepatosplenomegaly Musculoskeletal: no cyanosis or clubbing, extremities motor strength 5/5 Skin: no rashes, warm and dry Neurologic: PERRL, EOMI, accommodation nl, no face palsy, no dysarthria Results & Data Results & Data ([facility]) Vital Signs (Past 12 Hours) Vital Signs Temp Pulse Resp BP Pulse Ox 03/16/20 04:00 36.7 C 77 18 113/65 93 03/15/20 23:00 37.2 C 69 18 129/64 94 03/15/20 21:00 37 C 81 20 112/55 L 95 Laboratory Results 03/15/20 07:14 03/16/20 06:44 Diagnostic Findings No new films PG Care Time/CCT Total # of Minutes Spent Total Time Spent with Patient: Total time spent is greater than 50% in coordination of care (as documented) at patient's floor/unit and/or counseling patient: Coding Level of Care Code 56745 Subseq Hosp Care Lvl 2 Diagnoses Acute respiratory failure with hypoxia J96.01 Left upper lobe pneumonia J18.9 Pneumonia type: due to unspecified organism Pulmonary emphysema J43.9
[2020-03-16] MEDS: VANCOMYCIN HCL 1,250 MG in SODIUM CHLORIDE 0.9% 250 ML IV SCH (07:55)
[2020-03-16] MEDS: THIAMINE HCL 100 MG TAB PO SCH (08:01)
[2020-03-16] MEDS: PANTOprazole 40 MG TAB PO SCH (08:01)
[2020-03-16] MEDS: APIXABAN 5 MG TABLET PO SCH ×2 (08:01→20:34)
[2020-03-16] MEDS: SOTALOL HCL 80 MG TAB PO SCH ×2 (08:01→20:33)
[2020-03-16] MEDS: FUROSEMIDE 20 MG TAB PO SCH (10:19)
[2020-03-16] MEDS: UMECLIDINIUM/VILANTEROL 62.5/25MCG 7 PUFFS/INHALER INH SCH (10:19)
[2020-03-16] MEDS: CEROVITE ADV FORMULA TAB PO SCH (10:20)
--- NOTE | 2020-03-16 10:33 | Pharmacy Report ---
Pharmacy Abx Dose Progress Nt - Date of Service March 16, 2020 - Pharmacy Dosing Scope The patient WAS receiving the following antimicrobial agents per Pharmacy consult: Vancomycin 1250 mg IV every 8 hours which was started yesterday morning. Dosing modified today. - Objective Vital Signs (Past 12hrs): Vital Signs Temp Pulse Resp BP Pulse Ox 03/16/20 07:57 37.1 C 77 20 122/65 92 03/16/20 04:00 36.7 C 77 18 113/65 93 03/15/20 23:00 37.2 C 69 18 129/64 94 Lab Results (24hrs): Laboratory Tests (24 Hours) 03/16/20 03/16/20 06:44 06:44 Creatinine 0.53 L Est Cr Clr Drug Dosing 157.9 Vancomycin Trough 12.4 Micro Results: 03/11/20 03:42 Aerobic Blood Culture - Final Blood Streptococcus intermedius Anaerobic Blood Culture - Final 03/11/20 03:05 Aerobic Blood Culture - Final Blood Streptococcus intermedius Anaerobic Blood Culture - Final Streptococcus intermedius 03/11/20 10:30 Gram Stain - Final Sputum, Expectorated Sputum Culture - Final Moderate normal negro. - Risk Factors for Resistance * Hospitalization for 48 hours or more within the past 90 days * Antimicrobial use within the last 90 days [Augmentin] * History of IV drug abuse - Assessment & Plan Assessment 59 year old M receiving Vancomycin for treatment of Pneumonia. Patient is also on Unasyn for the same indication. Day #2 of Vancomycin therapy. Day 4 of Unasyn therapy. Blood cultures on 03/11/20 resulted in Strep intermedius which is covered by Unasyn. Repeat blood cultures ordered yesterday and pending. ID consulted. MRSA swab is negative. Vancomycin 2 gm IV load was given yesterday morning, then 1250 mg IV q8h was started. Trough level obtained this morning after 2 maintenance doses given yesterday that is before the 3rd maintenance dose. Laboratory Tests 03/16/20 06:44 Vancomycin Trough 12.4 Plan Vancomycin IV * Trough level of 12.4 mcg/mL is subtherapeutic. * Vancomycin dosing increased to 1500 mg IV every 8 hours starting this afternoon. * Goal trough level for Pneumonia: 15 to 20 mcg/mL * Trough level ordered for: 03/17 before dose at 6 AM. * If blood cultures result in Strep species again, recommend d/c the Vancomycin and continue only on Unasyn. Pharmacy will continue to follow and will adjust dose/frequency as necessary. Thank you.
[2020-03-16] MEDS: ACETAMINOPHEN 325 MG TAB PO PRN (11:03)
--- NOTE | 2020-03-16 13:10 | Hospitalist Progress Note ---
Date of Service March 16, 2020 Assessment & Plan (1) Acute respiratory failure with hypoxia: Acute respiratory failure secondary to multifocal pneumonia. Cont Unasyn for now. Remains afebrile overnight and improving. Cont supportive care with oxygen supplementation and symptom improvement PRN. (2) Left upper lobe pneumonia: WBC decreasing and he is requiring less oxygen, currently not using it while at rest. Recent parapneumonic effusion that was incompletely treated in December. He has responded well to current therapy. Cont Unasyn and Vanc pending repeat blood cultures per ID. Currently negative to date. Will likely transition to Augmentin for 3-4 weeks post discharge. (3) Tobacco abuse: ongoing tobacco abuse, with patient stating that he quit prior to coming in. Discouraged tobacco use moving forward. (4) IV drug abuse: reports a h/o this in the past but denies recent use. (5) Atrial fibrillation with RVR: New onset atrial fibrillation. Heparin drip started. Sotalol started per Cardiology. Echo of the heart showed-normal LV size and thickness with EF of 55 to 60%, no segmental wall motion abnormality, poorly visualized right ventricle, possibly dilated, focal thickening of the posterior mitral valve annulus unchanged compared to prior study. DCCV on 03/14 with conversion to sinus. Heparin drip was switched to Eliquis, which he will need to continued until a Cardiology follow-up. (6) COPD (chronic obstructive pulmonary disease): Stable, no wheezing. Cont Anoro Ellipta per home regimen. No steroids per pulm. (7) Bacteremia: Strep intermedius in blood, although possible contaminant. Per ID, repeat blood cultures and monitor for positivity. If yes,consider EDI. If no, cont Unasyn with conversion to Augmentin for 3-4 weeks and follow-up accordingly. (8) DVT prophylaxis: Eliquis full Code Dispo-to home when medically stable. Lizette Villareal DO [facility] Hospitalist Admission and Anticipated Discharge Date Admission Date: March 11, 2020 Subjective Pt reports wanting to go home. He wants to walk around more He is still desaturating when he moves or eats, and therefore, still requires oxygen with movement. He denies pain or coughing He denies fever, although 37.8C (100.4F) was clocked today. He is requesting a sleep aid and is fine with Ambien to try Review of Systems Review of Systems: All systems reviewed & are unremarkable except as noted in Subjective Physical Exam Physical Exam: CONSTITUTIONAL: WNWD, vitals as above, generally appears well EYES: pupils are round and equal bilaterally, normal conjunctivae ENT: MMM RESPIRATORY: Lungs are clear throughout all lung borges, no conversational dyspnea, no increased respiratory effort. CARDIOVASCULAR: regular rate and rhythm, S1 and 2 heard without murmurs, gallops or rubs, no JVD, no peripheral edema GASTROINTESTINAL: soft, nontender, nondistended MUSCULOSKELETAL: strength 5/5 throughout, head is normocephalic and atraumatic. He can move around the room independently per his report. SKIN: warm and dry NEUROLOGIC: CN 2-12 grossly normal. No gross focal deficits. PSYCHIATRIC: alert cooperative and oriented Results & Data Results & Data ([facility]) Vital Signs (Past 12 Hours) Vital Signs Temp Pulse Resp BP Pulse Ox 03/16/20 11:07 37.8 C H 73 20 137/70 91 03/16/20 07:57 37.1 C 77 20 122/65 92 03/16/20 04:00 36.7 C 77 18 113/65 93 Laboratory Results [facility] 03/16/20 06:44 Sodium 140 Potassium 3.6 Chloride 105 Carbon Dioxide 30 BUN 8 Creatinine 0.53 L Glucose 105 H Calcium 8.7 Medications Administered Current Inpatient Medications Acetaminophen (Acetaminophen 325 Mg Tab) 650 mg PO Q6H PRN PRN Reason: Pain or Fever Stop: 04/12/20 10:27 Last Admin: 03/16/20 11:03 Dose: 650 mg Documented by: Apixaban (Apixaban 5 Mg Tablet) 5 mg PO BID [facility] Stop: 04/13/20 20:59 Last Admin: 03/16/20 08:01 Dose: 5 mg Documented by: Furosemide (Furosemide 20 Mg Tab) 20 mg PO QAM [facility] Stop: 04/15/20 08:59 Last Admin: 03/16/20 10:19 Dose: 20 mg Documented by: Ampicillin Sodium/Sulbactam Sodium 3,000 mg/ Sodium Chloride 108 mls @ 200 mls/hr IV Q6H [facility]; Protocol Stop: 03/20/20 15:59 Last Infusion: 03/16/20 10:51 Dose: Infused Documented by: Vancomycin HCl 1,500 mg/ (Sodium Chloride) 530 mls @ 200 mls/hr IV Q8H [facility]; Protocol Stop: 03/23/20 13:59 Ipratropium [place] (Ipratropium [place] Neb Soln 0.02% 2.5 Ml Vial) 0.5 mg INH Q4R PRN PRN Reason: Shortness Of Breath Or Wheezing Stop: 04/10/20 06:59 Last Admin: 03/13/20 17:04 Dose: 0.5 mg Documented by: Miscellaneous Information (Vancomycin Consult Active) 1 ea N/A UD PRN PRN Reason: consult Stop: 04/14/20 04:53 Multivitamins/Minerals (Cerovite Adv Formula Tab) 1 tab PO DAILY@1100 [facility] Stop: 04/10/20 10:59 Last Admin: 03/16/20 10:20 Dose: 1 tab Documented by: Pantoprazole Sodium (Pantoprazole 40 Mg Tab) 40 mg PO DAILY [facility] Stop: 04/10/20 08:59 Last Admin: 03/16/20 08:01 Dose: 40 mg Documented by: Sotalol HCl (Sotalol Hcl 80 Mg Tab) 80 mg PO BID [facility] Stop: 04/11/20 13:09 Last Admin: 03/16/20 08:01 Dose: 80 mg Documented by: Thiamine HCl (Thiamine Hcl 100 Mg Tab) 100 mg PO QAM [facility] Stop: 04/10/20 08:59 Last Admin: 03/16/20 08:01 Dose: 100 mg Documented by: Umeclidinium/Vilanterol (Umeclidinium/Vilanterol 62.5/25mcg 7 Puffs/Inhaler) 1 puffs INH QAM [facility] Stop: 04/11/20 11:59 Last Admin: 03/16/20 10:19 Dose: 1 puffs Documented by: (1) Left upper lobe pneumonia Pneumonia type: due to unspecified organism Qualified Code(s): J18.9 - Pneumonia, unspecified organism
[2020-03-16] MEDS: VANCOMYCIN HCL 1,500 MG in SODIUM CHLORIDE 0.9% 500 ML IV SCH ×2 (15:40→22:49)
[2020-03-16] MEDS ORDERED: ZOLPIDEM TARTRATE 5 MG TAB PO PRN (18:40)
[2020-03-17] MEDS: AMPICILLIN/SULBACTAM SOD 3,000 MG in 0.9 % SODIUM CHLORIDE 100 ML IV SCH ×2 (03:58→09:55)
[2020-03-17] MEDS ORDERED: VANCOMYCIN TROUGH ONE (05:30)
[2020-03-17 05:50] LABS: Hematocrit (blood only) 33.5 % (42-52); Hemoglobin 10.2 g/dL (14.0-18.0); Mean Corpuscular Hemoglobin 25.5 pg (25-34); Mean Corpuscular Hgb Conc 30.4 g/dL (32-36); Mean Corpuscular Volume 83.8 fL (80-100); Mean Platelet Volume 7.9 fL (7.4-10.4); Platelet Count 625 K/uL (130-400); RDW Coefficient of Variation 16.6 % (11.5-14.5); RDW Standard Deviation 50.3 fL (36.4-46.3); White Blood Count 17.56 K/uL (4.8-10.8)
[2020-03-17 06:23] LABS: Creatinine Clr Calc Pharmacy 167.3 ml/min; Est GFR (African American) 136.5; Est GFR (Non-African American) 117.8
[2020-03-17] MEDS: VANCOMYCIN HCL 1,500 MG in SODIUM CHLORIDE 0.9% 500 ML IV SCH ×2 (06:39→13:57)
[2020-03-17] MEDS: IPRATROPIUM BROMIDE NEB SOLN 0.02% 2.5 ML VIAL INH PRN ×2 (07:36→12:27)
[2020-03-17] MEDS: PANTOprazole 40 MG TAB PO SCH (08:03)
[2020-03-17] MEDS: FUROSEMIDE 20 MG TAB PO SCH (08:03)
[2020-03-17] MEDS: UMECLIDINIUM/VILANTEROL 62.5/25MCG 7 PUFFS/INHALER INH SCH (08:03)
[2020-03-17] MEDS: THIAMINE HCL 100 MG TAB PO SCH (08:03)
[2020-03-17] MEDS: APIXABAN 5 MG TABLET PO SCH ×2 (08:04→22:08)
[2020-03-17] MEDS: SOTALOL HCL 80 MG TAB PO SCH ×2 (08:04→22:08)
--- NOTE | 2020-03-17 09:02 | Pulmonology Progress Note ---
Date of Service March 17, 2020 Assessment & Plan (1) Acute respiratory failure with hypoxia: Impression: 59-year-old male with history of tobacco and alcohol abuse treated for pneumonia and empyema back in December however did not complete antibiotics and returns now with dense left-sided consolidation. He is improving with decreasing leukocytosis and improving oxygen requirement. Recommendation: 1. Severe community-acquired pneumonia: Cultures are currently negative. He is currently day #7/15 antibiotics, initially treated with Zosyn and doxycycline. Vancomycin discontinued. Late positive blood cultures with strep intermedius likely represent contamination but will follow. ID now consulted through [employer]. Defer antibiotics to them. Patient will require follow-up chest x-r ay to document resolution of airspace opacity 2. COPD: The patient is not bronchospastic for now. No indication for steroids. Continue Anoro and as needed bronchodilators. Smoking cessation recommended. Consider outpatient pulmonary function tests in 4 to 6 weeks. Smoking cessation recommended 3. Hypoxemic respiratory failure: Continue to wean as tolerated. Patient may require oxygen to go home. Should increase activity and ambulate as tolerated. 4. Lower extremity edema: Improving with diuresis. Suspect related to grade 2 diastolic dysfunction. Continue blood pressure control and diuretics. Transitioned to oral Lasix We will sign off at this point in time. Feel free to contact us if we can be of additional assistance (2) Left upper lobe pneumonia: Pneumonia type: due to unspecified organism Qualified Code(s): J18.9 - Pneumonia, unspecified organism (3) Pulmonary emphysema: Admission and Anticipated Discharge Date Admission Date: March 11, 2020 Subjective Patient reports that he is doing well. He is up walking. His shortness of breath is significantly improved however he does not feel at his baseline yet. He has been weaned down and is currently on room air. His cough is less. He is tolerating a diet. He overall feels significantly improved Review of Systems Review of Systems: Unchanged from prior Physical Exam Eyes: PERRL, conjunctivae normal, anicteric sclerae ENMT: external ear and nose normal, oropharynx normal Neck: normal visual inspection Cardiovascular: Rate/Rhythm: regular rate Heart Sounds: normal S1 and norm al S2; no murmur Extremities: + edema Gastrointestinal (Abdomen): normal bowel sounds, soft, nontender, no hepatosplenomegaly Musculoskeletal: no cyanosis or clubbing, extremities motor strength 5/5 Skin: no rashes, warm and dry Neurologic: PERRL, EOMI, accommodation nl, no face palsy, no dysarthria Results & Data Results & Data ([facility]) Vital Signs (Past 12 Hours) Vital Signs Temp Pulse Resp BP Pulse Ox 03/17/20 07:38 87 18 95 03/17/20 06:33 36.8 C 80 22 162/88 H 93 03/16/20 23:08 37.4 C 74 20 131/81 95 Laboratory Results 03/17/20 05:39 03/17/20 05:39 Diagnostic Findings No new films PG Care Time/CCT Total # of Minutes Spent Total Time Spent with Patient: Total time spent is greater than 50% in coordination of care (as documented) at patient's floor/unit and/or counseling patient: Coding Level of Care Code 26776 Subseq Hosp Care Lvl 2 Diagnoses Acute respiratory failure with hypoxia J96.01 Left upper lobe pneumonia J18.9 Pneumonia type: due to unspecified organism Pulmonary emphysema J43.9
[2020-03-17] MEDS: CEROVITE ADV FORMULA TAB PO SCH (09:54)
--- NOTE | 2020-03-17 10:04 | XRay Report ---
XR chest 1V portable CLINICAL HISTORY: follow-up pneumonia. still hypoxic and WBC inc COMPARISON STUDY: 03/13/2020 FINDINGS: The cardiac and mediastinal contours remain stable. There are persistent extensive left tyrell g pulmonary airspace opacities. There is a suspected small left pleural effusion.[ IMPRESSION: Persistent extensive left lung airspace opacities. ACT 112: Negative or not required by law. Electronically signed by: Mio Champagne M.D. 03/17/2020 10:02 AM
[2020-03-17] MEDS ORDERED: NURSING DECISION MEDICATION ONE (14:02)
[2020-03-17] MEDS ORDERED: COUGH DROP (SUGAR FREE) LOZ 24 LOZ/1 BOX BUCCAL PRN (14:08)
--- NOTE | 2020-03-17 14:11 | Hospitalist Progress Note ---
Date of Service March 17, 2020 Assessment & Plan (1) Acute respiratory failure with hypoxia: Acute respiratory failure secondary to multifocal pneumonia. No further oxygen requirement at least at rest. Unasyn was switched to Augmentin. Remains afebrile overnight and improving. Cont supportive care with oxygen supplementation and symptom improvement PRN. Two step prior to discharge. (2) Left upper lobe pneumonia: WBC increased and he is requiring less oxygen, currently not using it while at rest. Recent parapneumonic effusion that was incompletely treated in December. He has responded well to current therapy. Some diarrhea has started which might be the reason for leukocytosis. No fever in last 24 hrs. Will likely transition to Augmentin for 3-4 weeks post discharge. (3) Tobacco abuse: ongoing tobacco abuse, with patient stating that he quit prior to coming in. Discouraged tobacco use moving forward. (4) IV drug abuse: reports a h/o this in the past but denies recent use. (5) Atrial fibrillation with RVR: New onset atrial fibrillation. Heparin drip started. Sotalol started per Cardiology. Echo of the heart showed-normal LV size and thickness with EF of 55 to 60%, no segmental wall motion abnormality, poorly visualized right ventricle, possibly dilated, focal thickening of the posterior mitral valve annulus unchanged compared to prior study. DCCV on 03/14 with conversion to sinus. Heparin drip was switched to Eliquis, which he will need to continued until a Cardiology follow-up. (6) COPD (chronic obstructive pulmonary disease): Stable, no wheezing. Cont Anoro Ellipta per home regimen. No steroids per pulm. (7) Bacteremia: Strep intermedius in blood, although possible contaminant. Per ID, repeat blood cultures and monitor for positivity. Repeat blood cultures have been negative. Touched base again with ID and they support the transition to Augmentin for 4 weeks with repeat chest imaging. (8) DVT prophylaxis: Eliquis full Code Dispo-to home when medically stable. [facility] [place] Two step prior to discharge, likely tomorrow. DO [facility] Hospitalist Admission and Anticipated Discharge Date Admission Date: March 11, 2020 Subjective Pt reports wanting to go home. He states that Ambien didn't work well for him to help him sleep and if he has to stay, then he wants me to "knock him out" Denies pain reports his breathing is better. tolerating PO some episodes of diarrhea began today-stool studies pending-WBC increased this am. Review of Systems Review of Systems: All systems reviewed & are unremarkable except as noted in Subjective Physical Exam Physical Exam: CONSTITUTIONAL: WNWD, vitals as above, generally appears well EYES: pupils are round and equal bilaterally, normal conjunctivae ENT: MMM RESPIRATORY: Lungs are clear throughout all lung borges, no conversational dyspnea, no increased respiratory effort. CARDIOVASCULAR: regular rate and rhythm, S1 and 2 heard without murmurs, gallops or rubs, no JVD, no peripheral edema GASTROINTESTINAL: soft, nontender, nondistended MUSCULOSKELETAL: strength 5/5 throughout, head is normocephalic and atraumatic. He can move around the room independently per his report. SKIN: warm and dry NEUROLOGIC: CN 2-12 grossly normal. No gross focal deficits. PSYCHIATRIC: alert cooperative and oriented Results & Data Results & Data ([facility]) Vital Signs (Past 12 Hours) Vital Signs Temp Pulse Resp BP Pulse Ox 03/17/20 12:46 37.1 C 73 18 139/76 96 03/17/20 12:27 73 20 96 03/17/20 07:38 87 18 95 03/17/20 06:33 36.8 C 80 22 162/88 H 93 Laboratory Results Short CBC 03/17/20 Range/Units 05:39 WBC 17.56 H (4.8-10.8) K/uL Hgb 10.2 L (14.0-18.0) g/dL Hct 33.5 L (42-52) % Plt Count 625 H (130-400) K/uL BMP 03/17/20 05:39 Creatinine 0.50 L Diagnostic Findings XR chest 1V portable CLINICAL HISTORY: follow-up pneumonia. still hypoxic and WBC inc COMPARISON STUDY: 03/13/2020 FINDINGS: The cardiac and mediastinal contours remain stable. There are persistent extensive left lung pulmonary airspace opacities. There is a suspected small left pleural effusion.[ IMPRESSION: Persistent extensive left lung airspace opacities. Medications Administered Current Inpatient Medications Acetaminophen (Acetaminophen 325 Mg Tab) 650 mg PO Q6H PRN PRN Reason: Pain or Fever Stop: 04/12/20 10:27 Last Admin: 03/16/20 11:03 Dose: 650 mg Documented by: Apixaban (Apixaban 5 Mg Tablet) 5 mg PO BID [facility] Stop: 04/13/20 20:59 Last Admin: 03/17/20 08:04 Dose: 5 mg Documented by: Furosemide (Furosemide 20 Mg Tab) 20 mg PO QAM [facility] Stop: 04/15/20 08:59 Last Admin: 03/17/20 08:03 Dose: 20 mg Documented by: Ampicillin Sodium/Sulbactam Sodium 3,000 mg/ Sodium Chloride 108 mls @ 200 mls/hr IV Q6H [facility]; Protocol Stop: 03/20/20 15:59 Last Infusion: 03/17/20 10:23 Dose: Infused Documented by: Vancomycin HCl 1,500 mg/ (Sodium Chloride) 530 mls @ 200 mls/hr IV Q8H [facility]; Protocol Stop: 03/23/20 13:59 Last Admin: 03/17/20 13:57 Dose: 200 mls/hr Documented by: Ipratropium [place] (Ipratropium [place] Neb Soln 0.02% 2.5 Ml Vial) 0.5 mg INH Q4R PRN PRN Reason: Shortness Of Breath Or Wheezing Stop: 04/10/20 06:59 Last Admin: 03/17/20 12:27 Dose: 0.5 mg Documented by: Menthol (Cough Drop (Sugar Free) Dhaval 24 Dhaval/1 Box) 1 dhaval BUCCAL PRN PRN PRN Reason: Cough Stop: 04/16/20 14:07 Miscellaneous Information (Vancomycin Consult Active) 1 ea N/A UD PRN PRN Reason: consult Stop: 04/14/20 04:53 Multivitamins/Minerals (Cerovite Adv Formula Tab) 1 tab PO DAILY@1100 [facility] Stop: 04/10/20 10:59 Last Admin: 03/17/20 09:54 Dose: 1 tab Documented by: Pantoprazole Sodium (Pantoprazole 40 Mg Tab) 40 mg PO DAILY [facility] Stop: 04/10/20 08:59 Last Admin: 03/17/20 08:03 Dose: 40 mg Documented by: Sotalol HCl (Sotalol Hcl 80 Mg Tab) 80 mg PO BID [facility] Stop: 04/11/20 13:09 Last Admin: 03/17/20 08:04 Dose: 80 mg Documented by: Thiamine HCl (Thiamine Hcl 100 Mg Tab) 100 mg PO QAM [facility] Stop: 04/10/20 08:59 Last Admin: 03/17/20 08:03 Dose: 100 mg Documented by: Umeclidinium/Vilanterol (Umeclidinium/Vilanterol 62.5/25mcg 7 Puffs/Inhaler) 1 puffs INH QAM [facility] Stop: 04/11/20 11:59 Last Admin: 03/17/20 08:03 Dose: 1 puffs Documented by: Zolpidem Tartrate (Zolpidem Tartrate 5 Mg Tab) 5 mg PO HS PRN PRN Reason: Sleep Stop: 04/15/20 18:39 Last Admin: 03/16/20 20:34 Dose: 5 mg Documented by: (1) Left upper lobe pneumonia Pneumonia type: due to unspecified organism Qualified Code(s): J18.9 - Pneumonia, unspecified organism
[2020-03-17] MEDS: LORazepam 0.5 MG TAB PO PRN (16:49)
[2020-03-17] MEDS: AMOXICILLIN/CLAVULANATE 875 MG TAB PO SCH (16:49)
[2020-03-18] MEDS: LORazepam 0.5 MG TAB PO PRN (01:00)
[2020-03-18 07:14] LABS: Basophils # (auto) 0.01 K/uL (0-0.2); Basophils % (auto) 0.1 %; Eosinophils # (auto) 0.29 K/uL (0-0.5); Eosinophils % (auto) 2.2 %; Hemoglobin 10.3 g/dL (14.0-18.0); Immature Granulocytes # (auto) 0.19 K/uL (0.00-0.02); Immature Granulocytes % (auto) 1.4 %; Lymphocytes # (auto) 1.29 K/uL (1.2-3.4); Lymphocytes % (auto) 9.6 %; Mean Corpuscular Hemoglobin 25.7 pg (25-34); Mean Corpuscular Hgb Conc 30.3 g/dL (32-36); Mean Corpuscular Volume 84.8 fL (80-100); Monocytes # (auto) 0.93 K/uL (0.11-0.59); Monocytes % (auto) 6.9 %; Neutrophils # (auto) 10.76 K/uL (1.4-6.5); Neutrophils % (auto) 79.8 %; Platelet Count 735 K/uL (130-400); RDW Coefficient of Variation 16.8 % (11.5-14.5); RDW Standard Deviation 52.1 fL (36.4-46.3); Red Blood Count 4.01 M/uL (4.7-6.1); White Blood Count 13.47 K/uL (4.8-10.8)
[2020-03-18 07:48] LABS: BUN Creatinine Ratio 11.7 (10-20); Calcium 9.1 mg/dl (8.5-10.1); Creatinine Clr Calc Pharmacy 144.3 ml/min; Est GFR (African American) 128.4; Est GFR (Non-African American) 110.8; Magnesium 2.2 mg/dl (1.8-2.4); Potassium 3.8 mmol/L (3.5-5.1)
[2020-03-18] MEDS: FUROSEMIDE 20 MG TAB PO SCH (08:30)
[2020-03-18] MEDS: PANTOprazole 40 MG TAB PO SCH (08:30)
[2020-03-18] MEDS: APIXABAN 5 MG TABLET PO SCH (08:30)
[2020-03-18] MEDS: AMOXICILLIN/CLAVULANATE 875 MG TAB PO SCH (08:31)
[2020-03-18] MEDS: THIAMINE HCL 100 MG TAB PO SCH (08:31)
[2020-03-18] MEDS: SOTALOL HCL 80 MG TAB PO SCH (08:31)
[2020-03-18] MEDS: UMECLIDINIUM/VILANTEROL 62.5/25MCG 7 PUFFS/INHALER INH SCH (08:31)
[2020-03-18] MEDS: CEROVITE ADV FORMULA TAB PO SCH (12:08)
--- NOTE | 2020-03-18 13:57 | Discharge Summary ---
Date of Service March 18, 2020 Admission HPI Per Admitting Provider HISTORY OF PRESENT ILLNESS: A 59-year-old male with past medical history significant for COPD, history of IV drug abuse, ongoing tobacco abuse, history of alcoholism. He is originally from [place]. He is currently residing with his parents. He comes with shortness of breath. The patient was here in December. At that time, the patient had injury to his left chest and he was also treated for parapneumonic effusion. He was status post pigtail catheter placement at that time and pleural fluid grew Haemophilus influenzae beta lactamase negative, and he also had left rib fracture at that time. He has also had NSAID gastritis at that time. He was discharged home to complete the antibiotic course with Augmentin and inhalers, Protonix, and vitamins. [facility] but he says he never followed up and he is also supposed to follow with pulmonary, but seems to have not followed up. Since he got discharged, he was still not feeling well, has some good days and bad days, but lately his shortness of breath got worse and today he was tachypneic, he could not breathe, and he was also having cough with yellowish phlegm. Did not have any fever at home. When the EMS arrived, he was saturating only 70%. He was given nebs. He was brought in here. Currently saturating on 6 liters in mid 90s. Able to speak. Received Solu-Medrol and albuterol. Antibiotics, vancomycin and Zosyn in the ER. His white count was 27,000. Lactate was okay at 0.6 and COVID-19 PCR is negative. Alcohol level is less than 3. Procalcitonin 0.35. Chest x-ray showed his whole left lung is white out. He is tachycardic. The patient denies any headache. No blurred visions, no earache, no runny nose, no sore throat, no loss of sense of smell or taste. Has some chest pain with coughing. No nausea, no vomiting, no abdominal pain. He says he is somewhat constipated. Denies any blood in the stool or black stools. Normal bladder movements. No burning micturition. He has swelling of the legs which he says it is there for a long time. He ambulates without any support. He says appetite is okay. Admission Exam Per Admitting Provider PHYSICAL EXAMINATION: GENERAL: The patient is of moderate build, not in acute distress, somewhat in respiratory distress. VITAL SIGNS: Temperature 38.5, pulse 118, respiratory rate 29, blood pressure 115/54, oxygen 93% on 6 liters OxyMask. HEENT: Head atraumatic. Pupils equal, round, and reactive to light. NECK: No JVD seen. Supple. CARDIOVASCULAR: S1, S2 heard. Tachycardia. No murmurs. RESPIRATORY SYSTEM: Normal AP diameter. No accessory muscle use. Bilateral diminished breath sounds, more on the left side with occasional wheezing. ABDOMEN: Soft, bowel sounds present, nontender. No distention. CENTRAL NERVOUS SYSTEM: Alert and oriented. Speech is clear. Obeys commands. Moves extremities. EXTREMITIES: Bilateral lower extremity gross edema present, no erythema seen. Principal Diagnosis Acute respiratory failure with hypoxia secondary to multifocal pneumonia Tobacco abuse History of IV drug abuse Atrial fibrillation with RVR status post DC cardioversion on 827 with conversion to sinus rhythm COPD Discharge Exam CONSTITUTIONAL: WNWD, vitals as above, generally appears well EYES: pupils are round and equal bilaterally, normal conjunctivae ENT: MMM RESPIRATORY: Lungs are clear throughout all lung borges, no conversational dyspnea, normal respiratory effort on room air. CARDIOVASCULAR: regular rate and rhythm, S1 and 2 heard without murmurs, gallops or rubs, no JVD, no peripheral edema GASTROINTESTINAL: soft, nontender, nondistended MUSCULOSKELETAL: strength 5/5 throughout, head is normocephalic and atraumatic. He can move around the room independently per his report. SKIN: warm and dry NEUROLOGIC: CN 2-12 grossly normal. No gross focal deficits. PSYCHIATRIC: alert cooperative and oriented Discharge Data Allergies Allergy/AdvReac Type Severity Reaction Status Date / Time phenobarbital Allergy Unknown Verified 03/11/20 03:06 Consultations 03/11/20 03:49 ED Decision to Admit Stat 03/11/20 06:30 Consult Case Management - Discharge Planning Routine Consult [employer] Routine 03/12/20 07:05 Consult Cardiology Routine 03/12/20 11:44 Consult Cardiology Routine 03/15/20 08:30 Consult Infectious Diseases Routine Procedures Performed Operation Date: 03/14/20 11:00 Actual Procedures p Cardioversion - Rio Rios DO Ordered Studies 03/11/20 04:57 CT chest wo con Urgent 03/11/20 08:00 US venous doppler LE BI Routine Hospital Course (1) Acute respiratory failure with hypoxia: (2) Left upper lobe pneumonia: (3) Tobacco abuse: (4) IV drug abuse: (5) Atrial fibrillation with RVR: (6) COPD (chronic obstructive pulmonary disease): 59-year-old man with a past medical history of COPD, history of IV drug abuse, ongoing tobacco abuse, history of alcoholism presents with acute respiratory failure secondary to multifocal pneumonia. He was in this hospital in December with injury to his chest and was treated for a parapneumonic effusion. He had a pigtail catheter placed and pleural fluid grew Haemophilus influenza beta-lactamase negative. He also had a rib fracture at that time on the left. He also had a history of NSAID gastritis he was discharged home to complete the antibiotic course with Augmentin inhalers Protonix and vitamins. The [facility] but said he [facility] not. His current symptoms are a continuation from symptoms at the last admission. EMS arrived at his home and noted his saturation was only 70% on room air. He was given nebulizer treatment and brought into the ER. He required significant supplemental oxygen therapy initially during the admission. Vancomycin and Zosyn were started in the ER. His white blood cell count was 21,000. Lactate was negative, COVID-19 PCR was negative. Alcohol level was less than 3 procalcitonin was 0.35 and a chest x-ray showed left lung white out. He was tachycardic and had some chest pain with coughing he was admitted to the ICU initially. An echocardiogram was performed on 03/11 revealing normal systolic function, EF 55 to 60%, no segmental left ventricular wall motion abnormalities, and a focal thickening of the posterior mitral valve annulus unchanged compared to prior study. Pulmonology was consulted and recommends continued Zosyn with the addition of doxycycline. Vancomycin was discontinued. Lower extremity edema was seen and was suspected to be related to grade 2 diastolic dysfunction. He was started on diuretics. While being monitored on telemetry he was found to be in atrial fibrillation with RVR and cardiology was consulted. He was started on sotalol therapy and heparin drip. He did not spontaneously convert therefore DC cardioversion was undertaken on 03/14 with successful cardioversion to sinus rhythm. Heparin was changed to Eliquis. Blood cultures for the patient revealed strep epidermidis which was consistent with the bacteria found in his pleural fluid previously. [facility] infectious disease was consulted and recommended a repeat blood culture which if negative, would omit further work-up. However, if repeat blood culture was positive, her recommendation was to perform a EDI. Repeat blood cultures were negative and the patient continued to improve clinically with decreased oxygenation needs and an improving leukocytosis. His antibiotics were switched to Augmentin as monotherapy recommended for the next 4 weeks. Near the end of admission his peripheral lower extremity edema had improved/resolved and his Lasix was changed to oral. At time of discharge he passed a respiratory two-step test revealing no need for oxygen supplementation at home. At time of discharge he was mentating and ambulating at baseline and tolerating p.o. He was hemodynamically stable and afebrile and very eager to go home. He did not have a primary care doctor through the [facility] at this time and was encouraged to set this up by case management. As he did not have connections to the [facility] his prescriptions were sent to [facility] in [place] per his request. I stressed the importance of compliance with his medications as well as the establishment of a primary care provider who can follow him up, the reason being he will need blood work to monitor electrolytes and kidney function in the next 1 to 2 weeks and he will need follow-up chest imaging to ensure co mplete resolution of pneumonia. He verbalized an understanding with intent to comply. I also reviewed the importance of stopping smoking, and again he verbalized understanding with intent to comply. Close follow-up with primary care provider is recommended. Total Time Total Time Spent Total Time Spent (In Minutes): 60 Total Time Includes: Examination of the Patient, Discharge Planning, Medication Reconciliation and Communication With Other Providers Discharge Plan Discharge Items Patient Disposition: Home - Self-Care Reason For Visit: SOB Discharge Diagnosis: Acute respiratory failure with hypoxia secondary to multifocal pneumonia Tobacco abuse History of IV drug abuse Atrial fibrillation with RVR status post DC cardioversion on 827 with conversion to sinus rhythm COPD Condition on Discharge: Good Goals: quit smoking Activity: Resume your previous activity Non-emergency contact: Primary Care Provider Call non-emergency contact if: you have any medication questions, your symptoms worsen, your pain is not controlled and your pain is worsening Follow-up/Referrals: PCP,NO [Primary Care Provider] - Diet: Regular Addtl Attending Provider Instructions: Please take all medications as instructed on discharge list below. Please note that your primary care doctor will need to perform lab work within 2 weeks time to check your kidney function and electrolytes on new medications. Please follow-up with your primary care doctor in 1 to 2 weeks after hospital discharge to ensure you are doing well and to establish care. You will need chest imaging to ensure complete resolution of pneumonia within 4 weeks time. This may be ordered by your primary care physician. Please ensure follow-up with [facility] Cardiology regarding your history of atrial fibrillation and management of your Eliquis blood thinner. You were seen by Dr. Rio Rios in the hospital where you underwent. Compliance with Eliquis is strongly encouraged at this time after cardioversion puts you at high risk for stroke development. While on the blood thinner please avoid nonsteroidal anti-inflammatory drugs (NSAIDS) which are medication such as ibuprofen, Motrin, naproxen, Advil, Aleve, etc. It is strongly encouraged that he quit smoking as this is terrible for your health. It was a pleasure taking care of you! Please call if you have any questions or problems. You can reach a [facility] hospitalist on duty at [facility] 24 hours a day by calling [phone]. Take care of yourself. Lizette Villareal, DO [facility] Pending Studies at Discharge: Yes Studies:: Final blood cultures, final stool cultures. Stand-Alone Forms: My [facility], Smoking Cessation Medications and DC Order Prescriptions: New amoxicillin-pot clavulanate [Augmentin] 875-125 mg Tablet 1 tab PO BIDM Qty: 60 RF: 0 Eliquis 5 mg Tablet 5 mg PO BID Qty: 60 RF: 1 sotalol 80 mg Tablet 80 mg PO BID Qty: 60 RF: 1 furosemide 20 mg Tablet 20 mg PO QAM Qty: 30 RF: 0 Discharge Orders: Discharge Order (Routine); Ordered 03/18/20 Ordered By: Lizette Villareal Admission Data Admit Date/Time: 03/11/20 04:55 Attending Provider: Lizette Villareal Admit Provider: Cody Sandy Primary Care Provider: PCP,NO Other Providers: Rio Rios ; Cody Sandy ; Dov Roach James J ; Darrel Cool ; Matt Garcia ; Ashish Lara ; Roland Richardson ; Louisa Alvarez ; Kathryn Giles ; Omar Serrano ; Bryan Romero ; Ofelia Hector ; Bliane Jack I. ; Edward Clarke II ; Tita Bauer ; Roland Butcher.
== END 2020-03-18 14:15 | disposition home or self-care (01) | DRG 193 ==
LOC: ED 02:46 → SUATTDRO 04:55 → 2E 04:55 → 2N 03-15 16:44